=== PATIENT | male | born 1955 | race Caucasian/White ===

== ENCOUNTER 2018-05-25 01:20 | Inpatient (IN) ==
[2018-05-25 02:01] LABS: Basophils % 0.3 % (0.1-2.0); Eosinophils # 0.5 K/mm3 (0.0-0.4); Eosinophils % 4.2 % (0.1-12.0); Hematocrit 45.2 % (42.0-52.0); Hemoglobin 13.9 g/dL (14.1-18.0); Lymphocytes # 0.5 K/mm3 (0.7-4.5); Lymphocytes % 4.5 K/mm3 (10-50); Mean Corpuscular HGB Conc 30.7 g/dL (31.8-35.4); Mean Corpuscular Hemoglobin 28.1 pg (27.0-31.2); Mean Corpuscular Volume 91.4 fl (80-94); Mean Platelet Volume 7.1 fl (7.4-10.4); Monocytes # 0.5 K/mm3 (0.1-1.0); Monocytes % 4.2 % (1.7-9.3); Neutrophils # 9.8 K/mm3 (1.8-7.8); Neutrophils % 86.8 % (37.0-80.0); Platelet Count 160 K/mm3 (142-424); Red Blood Count 4.95 M/mm3 (4.60-6.20); White Blood Count 11.3 K/mm3 (4.8-10.8)
[2018-05-25 02:05] LABS: Microscopic, Urine URINE MICROSCOPIC (MICROSCOPIC)
[2018-05-25 02:07] LABS: Appearance,Urine CLEAR (Clear); Bilirubin,Urine Negative (Negative); Blood, Urine Negative (Negative); Color,Urine YELLOW (Yellow); Glucose,Urine (UA) Negative (Negative); Ketones,Urine Negative (Negative); Leukocyte Esterase,Urine Negative (Negative); PH,Urine 7.5 (5.0-8.5); Protein,Urine Negative (Negative); Specific Gravity, Urine 1.015 (1.005-1.030)
[2018-05-25 02:10] LABS: Anion Gap 6.4 mEq/L (5-15); Potassium 4.4 mmoL/L (3.5-5.1)
[2018-05-25 02:12] LABS: Albumin Level 2.8 gm/dL (3.4-5.0); Bilirubin,Direct 0.1 mg/dL (0.0-0.2); Bilirubin,Indirect 0.5 mg/dL (0.0-0.9); Bilirubin,Total 0.6 mg/dL (0.2-1.0); Total Protein,Serum 5.8 gm/dL (6.4-8.2)
[2018-05-25 02:18] LABS: Bacteria,Urine 1+ /lpf; WBC,Urine Occasional #/hpf (0-3)
--- NOTE | 2018-05-25 02:55 | Emergency Department Note ---
ED Disposition Clinical Impression: Febrile illness, acute, Renal insufficiency Disposition: Admitted as Observation Condition on Discharge: Good - Critical Care Critical Care Time: No Attestation: On 05/25/18, the high probability of a clinically significant, sudden or life threatening deterioration of the following system(s) required my full and direct attention, intervention and personal management. The time I documented below is in addition to time spent performing reported procedures but includes the following listed in this critical care notation. Medical Decision Making - Medical Records Medical records reviewed: Yes: I reviewed the patient's medical records. - Venkatesh Inquiry Pt receiving controlled substance: No Vital Signs: 05/25/18 01:24 Temperature 101.9 F H Temperature Source Oral Pulse Rate [Right Radial] 120 H Respiratory Rate 16 Blood Pressure [Right Arm] 157/96 Blood Pressure Mean [Right Arm] 116 Blood Pressure Source [Right Arm] Automatic Cuff Blood Pressure Position [Right Arm] Sitting 02 Sat by Pulse Oximetry 96 Oxygen Delivery Method Room Air - Lab Data Lab results reviewed: Yes: I reviewed the patient's lab results. Lab Results 05/25/18 01:45: WBC 11.3 H, RBC 4.95, Hgb 13.9 L, Hct 45.2, MCV 91.4, MCH 28.1, MCHC 30.7 L, RDW 15.0, Plt Count 160, MPV 7.1 L, Neut % (Auto) 86.8 H, Lymph % ( Auto) 4.5 L, Bartholomew % (Auto) 4.2, Eos % (Auto) 4.2, Baso % (Auto) 0.3, Neut # ( Auto) 9.8 H, Lymph # (Auto) 0.5 L, [place]th[place]omew # (Auto) 0.5, Eos # (Auto) 0.5 H, Baso # (Auto) 0.0, Total Counted 100, Neutrophils % (Manual) 93 H, Lymphocytes % ( Manual) 4 L, Eosinophils % (Manual) 3, Platelet Estimate Normal, Anisocytosis 1+ , Stomatocytes 1+ 05/25/18 01:45: Sodium 136, Potassium 4.4, Chloride 104, Carbon Dioxide 30, Anion Gap 6.4, BUN 32 H, Creatinine 1.35 H, Estimated Creat Clear 79, Estimated GFR 53 L, Est GFR ( Amer) 65, Glucose 114 H, Calcium 8.0 L, Amylase 48 05/25/18 01:45: Lactic Acid 1.2 05/25/18 01:45: Total Bilirubin 0.6, Direct Bilirubin 0.1, Indirect Bilirubin 0.5, AST 38 H, ALT 277 H, Alkaline Phosphatase 68, Total Protein 5.8 L, Albumin 2.8 L, Lipase 165 05/25/18 01:45: ESR 10 05/25/18 01:45: C-Reactive Protein 0.8 05/25/18 01:55: Urine Color Yellow, Urine Appearance Clear, Urine pH 7.5, Ur Specific [place] 1.015, Urine Protein Negative, Urine Glucose (UA) Negative, Urine Ketones Negative, Urine Blood Negative, Urine Nitrate Negative, Urine Bilirubin Negative, Urine Urobilinogen 2.0, Ur Leukocyte Esterase Negative, Urine WBC Occasional, Urine Bacteria 1+ Result diagrams: 05/25/18 01:45 05/25/18 01:45 Orders (Tests/Meds): ED MEDICATIONS Generic Name Dose Route Start Last Admin Trade Name Freq PRN Reason Stop Dose Admin Azithromycin 500 mg/ Sodium 250 mls @ 250 mls/hr 05/25/18 03:15 Chloride IV 06/08/18 03:14 Q24H EDUARDO Protocol Ceftriaxone Sodium 1 gm/ 50 mls @ 100 mls/hr 05/25/18 03:08 05/25/18 03:15 Sodium Chloride IV 06/08/18 03:07 100 mls/hr Q24H EDUARDO Administration Protocol Vancomycin HCl 2,000 mg/ 250 mls @ 125 mls/hr 05/25/18 03:05 Sodium Chloride IV 06/08/18 03:04 DAILY EDUARDO Protocol Discontinued Medications Generic Name Dose Route Start Last Admin Trade Name Freq PRN Reason Stop Dose Admin Acetaminophen 1,000 mg 05/25/18 01:35 05/25/18 01:50 Tylenol 500mg Tablet PO 05/25/18 01:36 1,000 mg ONCE ONE Administration Sodium Chloride 1,000 mls @ 999 mls/hr 05/25/18 01:45 05/25/18 01:50 Sod Chlor 0.9% 1000ml Bag IV 05/25/18 02:45 999 mls/hr .Q1H1M EDUARDO Administration ORDERS Category Date Time Status CT head/brain wo con Stat Cat Scan 05/25/18 01:53 Taken Chest XR 2 view (NOT portable) [XR chest 2V] Stat Exams 05/25/18 01:53 Taken Blood Culture Stat Micro 05/25/18 01:45 Received - Radiology Data #1 Image(s): Chest Image Reviewed: Yes I reviewed the patient's radiology image Preliminary Findings: Normal/NAD - CT Data CT Scan: Head Time Received: 03:[address] Reviewed: Yes: I have viewed the radiologist's interpretation Preliminary Findings: Abnormal (prob post op changes ) - Physician Consults Physician Consulted: cristian Reason -: Admission Skin/Abscess/FB HPI - General Chief complaint: Allergic Reaction Stated complaint: Rash,Swollen,Fever Time Seen by Provider: 05/25/18 02:48 Mode of Arrival: Ambulatory Source of Information: Patient, Spouse, Medical Record Limitations: No Limitations Description of Symptoms (Recalled from ER Triage Doc. by RN): has torso to facial rash since Tuesday, now has fever and facial swelling, current decadron taper, stopped pepcid. has had 100mg of benadryl since 8pm with no relief, may have missed decadron today - History of Present Illness HPI narrative: pt with glioblastoma removed 2 weeks ago at and has been doing ok - he dev rash on trunk and face with itching over the last few days - he was seen at with rash today - he is on decadron 2 mg bid but no chemotherapy and he has no urinary sx and no cough - no oral lesions and petichiae - he dev fever and chills tonalex MARR complaint: rash Onset (ago): day(s) Tetanus up to date: unsure Location: generalized Severity: moderate Consistency: constant Associated symptoms: fever, chills Treatments prior to arrival: Benadryl - Related Data Home Medications Medication Instructions Recorded Confirmed Allopurinol [Allopurinol 100mg 100 mg PO DAILY 05/02/18 05/25/18 tablet] Aspirin [Aspirin 81mg EC Tab] 81 mg PO DAILY 05/02/18 05/25/18 Lovastatin 40 mg PO DAILY 05/02/18 05/25/18 Ubidecarenone [Co Q-10] 10 mg PO DAILY 05/02/18 05/25/18 Dexamethasone 1 tab PO BID 05/25/18 05/25/18 Famotidine [Acid Controller] 20 mg PO BID 07/12/18 07/12/18 Allergies Allergy/AdvReac Type Severity Reaction Status Date / Time Sulfa (Sulfonamide Allergy Unknown Verified 05/02/18 22:25 Antibiotics) [SULFA (SULFONAMIDE ANTIBIOTICS)] [facility] History I have reviewed the patient's past medical history: Yes Medical History: Reports:: Cancer (glioblastoma) Denies:: Diabetes Mellitus Type 1, Diabetes Mellitus Type 2, MRSA Amputation: No Fractures: Yes (left arm plate) - Social History Smoking Status: Former smoker Alcohol Intake: never - Psychiatric History Expresses thoughts of harming self/others: None Suicide Plan Description: No Plan ROS Obtained: Yes All systems reviewed & no additional complaints - Constitutional Constitutional: Reports chills, Reports fever(s) - Eyes Eyes: Denies change in vision - ENT Ears, Nose, Mouth, and Throat: Denies sore throat - Cardiovascular Cardiovascular: Denies chest pain - Respiratory Respiratory: No cough, No coughing up blood - Gastrointestinal Gastrointestingal: Denies: abdominal pain - Genitourinary Male Genitourinary: Denies hematuria, Denies urinary urgency - Musculoskeletal Musculoskeletal: Denies joint pain, Denies joint swelling - Integumentary/Breasts Skin/Breast: Reports as per HPI, Reports rash - Neurologic Neurologic: Denies headache(s), Denies seizure-like activity Physical Exam - General General appearance: in no apparent distress - Head Head exam: normocephalic - Eye Eye exam: Present: PERRL, EOMI, other (no oral lesions ). Absent: scleral icterus - ENT ENT exam: Present: normal oropharynx, mucous membranes dry - Neck Neck exam: Present: trachea midline. Absent: meningismus - Respiratory Respiratory exam: Present: normal lung sounds bilaterally. Absent: respiratory distress - Cardiovascular Cardiovascular exam: Present: regular rate, systolic murmur. Absent: rubs - Abdominal Exam Abdominal exam: Present: soft. Absent: tenderness - Extremities Exam Extremities exam: Absent: joint swelling - Back Exam Back exam: Absent: CVA tenderness (L) - Neurological Exam Neurological exam: Present: alert, oriented X3, CN II-XII intact - Psychiatric Psychiatric exam: Present: normal affect - Skin Skin exam: Present: rash (morbiform rash to trunk and face with no feet/hand or mm lesions )
[2018-05-25 02:56] LABS: Anisocytosis 1+; Eosinophils % 3 % (0-3); Lymphocytes % 4 % (10-50); Neutrophils % 93 % (42-76); Stomatocytes 1+; Total Cells Counted 100
[2018-05-25 06:26] LABS: Basophils % 0.1 % (0.1-2.0); Eosinophils # 0.5 K/mm3 (0.0-0.4); Eosinophils % 4.4 % (0.1-12.0); Hematocrit 45.1 % (42.0-52.0); Hemoglobin 13.8 g/dL (14.1-18.0); Lymphocytes # 0.5 K/mm3 (0.7-4.5); Lymphocytes % 4.5 K/mm3 (10-50); Mean Corpuscular HGB Conc 30.7 g/dL (31.8-35.4); Mean Corpuscular Hemoglobin 28.6 pg (27.0-31.2); Mean Corpuscular Volume 93.3 fl (80-94); Monocytes # 0.4 K/mm3 (0.1-1.0); Monocytes % 3.6 % (1.7-9.3); Neutrophils # 10.4 K/mm3 (1.8-7.8); Neutrophils % 87.4 % (37.0-80.0); Platelet Count 137 K/mm3 (142-424); Red Blood Count 4.83 M/mm3 (4.60-6.20); Red Cell Distribution Width 15.1 % (11.5-17.5); White Blood Count 11.9 K/mm3 (4.8-10.8)
[2018-05-25 06:57] LABS: Calcium 8.1 mg/dL (8.5-10.1)
[2018-05-25 07:20] LABS: Anion Gap 11.1 mEq/L (5-15); Potassium 5.1 mmoL/L (3.5-5.1)
--- NOTE | 2018-05-25 07:40 | Pharmacy Consult Notes ---
[facility] Pharmacy VTE Monitoring - Patient Demographics Admission date: 05/25/18 Report Date: 05/25/18 Time: 07:40 Allergies/Adverse Reactions: Patient Allergies Sulfa (Sulfonamide Antibiotics) [SULFA (SULFONAMIDE ANTIBIOTICS)] Allergy ( Unknown, Verified 05/02/18 22:25) Height: 1.78 m Weight: 100.924 kg Patient Problems: Current Active Problems Febrile illness, acute (Acute) Renal insufficiency (Acute) - VTE Risk Labs: VTE Related Lab Results Hgb 13.8 g/dL (14.1-18.0) L 05/25/18 06:02 Hct 45.1 % (42.0-52.0) 05/25/18 06:02 Plt Count 137 K/mm3 (142-424) L 05/25/18 06:02 BUN 28 mg/dL (7-18) H 05/25/18 06:02 Creatinine 1.36 mg/dL (0.70-1.30) H 05/25/18 06:02 Estimated Creat Clear 79 mL/min (0-300) 05/25/18 06:02 Was VTE Risk Assessment Performed: Yes VTE Score: 6 VTE Risk Level: Moderate Risk Clinical Trial Participant: No - Prophylaxis VTE Prophylaxis Ordered?: Yes Types of VTE Prophylaxis: TEDS Knee High
--- NOTE | 2018-05-25 08:29 | History & Physical Report ---
*Admission Date: 05/25/18 <Mireya Shore 05/25/18 08:36> *Chief complaint: Fever, rash <Mireya Shore 05/25/18 08:36> *History of present illness: Mr. Chew is a 62-year-old male who was just recently diagnosed with a glioblastoma. He had most of the tumor removed on May 09, 2018. After the surgery, he was started on a high dose of dexamethasone. This dose has been tapered. He began getting a rash a few days ago that was extremely pruritic. The rash started on his chest and back and has now spread to his face. His oncologist started him on Pepcid and this did not help, therefore he changed it to Mylanta and Benadryl. The rash continued to get worse. Last night the patient developed a fever of 102 and presented to the emergency room for further evaluation and treatment. He denies any pain or other associated symptoms. He is still running a fever and his rash seems to be worse. <Mireya Shore 05/25/18 08:36> [facility] History Medical History: Reports:: Cancer (Glioblastoma, basal cell carcinoma left upper back), Hyperlipidemia, Kidney Stones Denies:: Diabetes Mellitus Type 1, Diabetes Mellitus Type 2, Internal Pacemaker, MRSA <Mireya Shore 05/25/18 08:36> Other Surgeries: Yes: Cancer Surgery (Removal of glioblastoma tumor). No: Pacemaker <Mireya Shore 05/25/18 08:36> Amputation: No <Mireya Shore 05/25/18 08:36> Fractures: Yes (left arm plate) <Mireya Shore 05/25/18 08:36> Comment: right knee scope, nerve repair left arm d/t chainsaw injury, L5/S1 hemilaminectomy/discectomy, kidney stones <Mireya Shore 05/25/18 08:36> - *Social History Educational Level: Completed High School <Mireya Shore 05/25/18 08:36> Smoking Status: Former smoker <Mireya Shore 05/25/18 08:36> Tobacco Type: cigarettes <Mireya Shore 05/25/18 08:36> Smoking End Date: 1979 <Mireya Shore 05/25/18 08:36> Alcohol Intake: current <MoneMireya 05/25/18 08:36> Alcohol Intake Frequency:: 0-2 drinks per day <Trevon Shorea 05/25/18 08:36> Occupational Status: retired <Mireya Shore 05/25/18 08:36> Housing: house <EnarnolMireya 05/25/18 08:36> Household Members: spouse <Mireya Shore 05/25/18 08:36> - Psychiatric History Expresses thoughts of harming self/others: None <Mireya Shore 05/25/18 08: 36> Suicide Plan Description: No Plan <Mireya Shore 05/25/18 08:36> *Family Hx:: Cancer, Heart Attack <Mireya Shore 05/25/18 08:36> Review of Systems - Constitutional Reports body ache(s), Reports chills, Reports fever(s) <Mireya Shore 08:36> - Eyes Denies blurry vision, Denies double vision <Mireya Shore 05/25/18 08:36> - ENT Denies nasal congestion, Denies sore throat <Mireya Shore 05/25/18 08:36> - *Cardiovascular Denies chest pain, Denies shortness of breath, Denies irregular heart rhythm < Mireya Shore 05/25/18 08:36> - *Respiratory Denies chest congestion, Denies cough, Denies shortness of breath <Mireya Shore 05/25/18 08:36> - *Gastrointestinal Denies loose stools, Denies nausea, Denies vomiting <Mireya Shore 05/25/18 08:36> - *Genitourinary Denies difficulty urinating, Denies painful urination <Mireya Shore 08:36> - *Musculoskeletal Denies joint pain <Mireya Shore 05/25/18 08:36> - *Neurologic Denies headache(s), Denies seizure-like activity, Denies dizziness <Mireya Shore 05/25/18 08:36> Meds Home Medications Medication Instructions Recorded Confirmed Type Allopurinol [Allopurinol 100mg 100 mg PO DAILY 05/02/18 05/25/18 History tablet] Aspirin [Aspirin 81mg EC Tab] 81 mg PO DAILY 05/02/18 05/25/18 History Lovastatin 40 mg PO HS 05/02/18 05/25/18 History Ubidecarenone [Co Q-10] 10 mg PO DAILY 05/02/18 05/25/18 History Dexamethasone 1 tab PO BID 05/25/18 05/25/18 History Famotidine [Acid Controller] 20 mg PO BID 05/25/18 05/25/18 History <Jered Tavares - 05/25/18 09:00> Allergies Allergy/AdvReac Type Severity Reaction Status Date / Time Sulfa (Sulfonamide Allergy Unknown Verified 05/02/18 22:25 Antibiotics) [SULFA (SULFONAMIDE ANTIBIOTICS)] <Jered Tavares - 05/25/18 09:00> Exam Vital signs and Labs for Last 24 Hours: Temp Pulse Resp BP Pulse Ox 99.4 F 104 H 20 130/91 99 05/25/18 08:00 05/25/18 08:00 05/25/18 08:00 05/25/18 08:00 05/25/18 08:00 Laboratory Results - last 24 hr 05/25/18 01:45: WBC 11.3 H, RBC 4.95, Hgb 13.9 L, Hct 45.2, MCV 91.4, MCH 28.1, MCHC 30.7 L, RDW 15.0, Plt Count 160, MPV 7.1 L, Neut % (Auto) 86.8 H, Lymph % ( Auto) 4.5 L, [place] % (Auto) 4.2, Eos % (Auto) 4.2, Baso % (Auto) 0.3, Neut # ( Auto) 9.8 H, Lymph # (Auto) 0.5 L, [place] # (Auto) 0.5, Eos # (Auto) 0.5 H, Baso # (Auto) 0.0, Total Counted 100, Neutrophils % (Manual) 93 H, Lymphocytes % ( Manual) 4 L, Eosinophils % (Manual) 3, Platelet Estimate Normal, Anisocytosis 1+ , Stomatocytes 1+ 05/25/18 01:45: Sodium 136, Potassium 4.4, Chloride 104, Carbon Dioxide 30, Anion Gap 6.4, BUN 32 H, Creatinine 1.35 H, Estimated Creat Clear 79, Estimated GFR 53 L, Est GFR ( Amer) 65, Glucose 114 H, Calcium 8.0 L, Amylase 48 05/25/18 01:45: Lactic Acid 1.2 05/25/18 01:45: Total Bilirubin 0.6, Direct Bilirubin 0.1, Indirect Bilirubin 0.5, AST 38 H, ALT 277 H, Alkaline Phosphatase 68, Total Protein 5.8 L, Albumin 2.8 L, Lipase 165 05/25/18 01:45: ESR 10 05/25/18 01:45: C-Reactive Protein 0.8 05/25/18 01:55: Urine Color Yellow, Urine Appearance Clear, Urine pH 7.5, Ur Specific [place] 1.015, Urine Protein Negative, Urine Glucose (UA) Negative, Urine Ketones Negative, Urine Blood Negative, Urine Nitrate Negative, Urine Bilirubin Negative, Urine Urobilinogen 2.0, Ur Leukocyte Esterase Negative, Urine WBC Occasional, Urine Bacteria 1+ 05/25/18 06:02: WBC 11.9 H, RBC 4.83, Hgb 13.8 L, Hct 45.1, MCV 93.3, MCH 28.6, MCHC 30.7 L, RDW 15.1, Plt Count 137 L, MPV 7.0 L, Neut % (Auto) 87.4 H, Lymph % (Auto) 4.5 L, [place] % (Auto) 3.6, Eos % (Auto) 4.4, Baso % (Auto) 0.1, Neut # ( Auto) 10.4 H, Lymph # (Auto) 0.5 L, [place] # (Auto) 0.4, Eos # (Auto) 0.5 H, Baso # (Auto) 0.0 05/25/18 06:02: Sodium 140, Potassium 5.1, Chloride 107, Carbon Dioxide 27, Anion Gap 11.1, BUN 28 H, Creatinine 1.36 H, Estimated Creat Clear 79, Estimated GFR 53 L, Est GFR ( Amer) 64, Glucose 111 H, Calcium 8.1 L <Jered Tavares - 05/25/18 09:00> Temp Pulse Resp BP Pulse Ox 98.8 F 102 H 18 128/74 95 05/25/18 03:58 05/25/18 04:20 05/25/18 03:58 05/25/18 03:58 05/25/18 04:20 Laboratory Results - last 24 hr 05/25/18 01:45: WBC 11.3 H, RBC 4.95, Hgb 13.9 L, Hct 45.2, MCV 91.4, MCH 28.1, MCHC 30.7 L, RDW 15.0, Plt Count 160, MPV 7.1 L, Neut % (Auto) 86.8 H, Lymph % ( Auto) 4.5 L, [place] % (Auto) 4.2, Eos % (Auto) 4.2, Baso % (Auto) 0.3, Neut # ( Auto) 9.8 H, Lymph # (Auto) 0.5 L, [place] # (Auto) 0.5, Eos # (Auto) 0.5 H, Baso # (Auto) 0.0, Total Counted 100, Neutrophils % (Manual) 93 H, Lymphocytes % ( Manual) 4 L, Eosinophils % (Manual) 3, Platelet Estimate Normal, Anisocytosis 1+ , Stomatocytes 1+ 05/25/18 01:45: Sodium 136, Potassium 4.4, Chloride 104, Carbon Dioxide 30, Anion Gap 6.4, BUN 32 H, Creatinine 1.35 H, Estimated Creat Clear 79, Estimated GFR 53 L, Est GFR ( Amer) 65, Glucose 114 H, Calcium 8.0 L, Amylase 48 05/25/18 01:45: Lactic Acid 1.2 05/25/18 01:45: Total Bilirubin 0.6, Direct Bilirubin 0.1, Indirect Bilirubin 0.5, AST 38 H, ALT 277 H, Alkaline Phosphatase 68, Total Protein 5.8 L, Albumin 2.8 L, Lipase 165 05/25/18 01:45: ESR 10 05/25/18 01:45: C-Reactive Protein 0.8 05/25/18 01:55: Urine Color Yellow, Urine Appearance Clear, Urine pH 7.5, Ur Specific [place] 1.015, Urine Protein Negative, Urine Glucose (UA) Negative, Urine Ketones Negative, Urine Blood Negative, Urine Nitrate Negative, Urine Bilirubin Negative, Urine Urobilinogen 2.0, Ur Leukocyte Esterase Negative, Urine WBC Occasional, Urine Bacteria 1+ 05/25/18 06:02: WBC 11.9 H, RBC 4.83, Hgb 13.8 L, Hct 45.1, MCV 93.3, MCH 28.6, MCHC 30.7 L, RDW 15.1, Plt Count 137 L, MPV 7.0 L, Neut % (Auto) 87.4 H, Lymph % (Auto) 4.5 L, [place] % (Auto) 3.6, Eos % (Auto) 4.4, Baso % (Auto) 0.1, Neut # ( Auto) 10.4 H, Lymph # (Auto) 0.5 L, [place] # (Auto) 0.4, Eos # (Auto) 0.5 H, Baso # (Auto) 0.0 05/25/18 06:02: Sodium 140, Potassium 5.1, Chloride 107, Carbon Dioxide 27, Anion Gap 11.1, BUN 28 H, Creatinine 1.36 H, Estimated Creat Clear 79, Estimated GFR 53 L, Est GFR ( Amer) 64, Glucose 111 H, Calcium 8.1 L <Mireya Shore - 05/25/18 08:36> I & O for Last 24 hours: Intake & Output 05/22/18 05/23/18 05/24/18 05/25/18 11:59 11:59 11:59 11:59 Intake Total 351 / 351 Output Total 650 / 650 Balance -299 / -299 Weight 222 lb 8 oz <Jered Tavares - 05/25/18 09:00> Intake & Output 05/22/18 05/23/18 05/24/18 05/25/18 11:59 11:59 11:59 11:59 Intake Total 351 / 351 Output Total 650 / 650 Balance -299 / -299 Weight 222 lb 8 oz <Mireya Shore - 05/25/18 08:36> - Constitutional no acute distress <Mireya Shore 05/25/18 08:36> - *Routine HEENT Exam Head: Present: normocephalic, atraumatic <Mireya Shore 05/25/18 08:36> Eye: Present: EOMI, PERRL <Mireya Shore 05/25/18 08:36> ENT: Present: mucous membranes moist <Mireya Shore - 05/25/18 08:36> - *Routine Neck Exam Present: supple, full ROM <Mireya Shore 05/25/18 08:36> - *Routine Respiratory Exam Present: CTA bilaterally <Mireya Shore 05/25/18 08:36> - *Routine Cardiovascular Exam Present: RRR <Mireya Shore 05/25/18 08:36> - *Routine Abdominal Exam Present: soft, normoactive bowel sounds. Absent: tenderness [facility] 05/25/18 08:36> - *Routine Extremities Exam Absent: edema <[facility] 05/25/18 08:36> - *Routine Skin Exam Present: rash (raised erythematous pruritic rash on the chest, back, and face) <Mireya Shore 05/25/18 08:36> - *Routine Neurological Exam Present: alert, oriented X3 <Mireya Shore 05/25/18 08:36> H&P: Result - Labs Labs: Short CBC 05/25/18 05/25/18 Range/Units 01:45 06:02 WBC 11.3 H 11.9 H (4.8-10.8) K/mm3 Hgb 13.9 L 13.8 L (14.1-18.0) g/dL Hct 45.2 45.1 (42.0-52.0) % Plt Count 160 137 L (142-424) K/mm3 BMP 05/25/18 05/25/18 01:45 06:02 Sodium 136 140 Potassium 4.4 5.1 Chloride 104 107 Carbon Dioxide 30 27 BUN 32 H 28 H Creatinine 1.35 H 1.36 H Glucose 114 H 111 H Calcium 8.0 L 8.1 L Liver Function 05/25/18 Range/Units 01:45 Total Bilirubin 0.6 (0.2-1.0) mg/dL Direct Bilirubin 0.1 (0.0-0.2) mg/dL AST 38 H (15-37) U/L ALT 277 H (12-78) U/L Alkaline Phosphatase 68 (46-116) U/L Albumin 2.8 L (3.4-5.0) gm/dL Urine 05/25/18 Range/Units 01:55 Urine Color Yellow (Yellow) Urine Appearance Clear (Clear) Urine pH 7.5 (5.0-8.5) Ur Specific [place] 1.015 (1.005-1.030) Urine Protein Negative (Negative) Urine Glucose (UA) Negative (Negative) <Jered Tavares - 05/25/18 09:00> <Mireya Shore - 05/25/18 08:36> - Impressions CT scan pending CXR - Faint infiltrate in the right upper lobe <Mireya Shore - 05/25/18 08:36> Assessment and Plan (1) Pneumonia Current visit: Yes Status: Acute Category: Medical Code(s): J18.9 - Pneumonia, unspecified organism (2) Febrile illness, acute Current visit: Yes Status: Acute Category: Medical Code(s): R50.9 - Fever , unspecified (3) Renal insufficiency Current visit: Yes Status: Acute Category: Medical Code(s): N28.9 - Disorder of kidney and ureter, unspecified (4) Rash Current visit: Yes Status: Acute Category: Medical Code(s): R21 - Rash and other nonspecific skin eruption (5) Glioblastoma Current visit: Yes Status: Acute Category: Medical Code(s): C71.9 - Malignant neoplasm of brain, unspecified <Jered Tavares - 05/25/18 09:00> (1) Pneumonia Current visit: Yes Status: Acute Category: Medical Code(s): J18.9 - Pneumonia, unspecified organism (2) Febrile illness, acute Current visit: Yes Status: Acute Category: Medical Code(s): R50.9 - Fever , unspecified (3) Renal insufficiency Current visit: Yes Status: Acute Category: Medical Code(s): N28.9 - Disorder of kidney and ureter, unspecified (4) Rash Current visit: Yes Status: Acute Category: Medical Code(s): R21 - Rash and other nonspecific skin eruption (5) Glioblastoma Current visit: Yes Status: Acute Category: Medical Code(s): C71.9 - Malignant neoplasm of brain, unspecified <Mireya Shore - 05/25/18 08:26> - Assessment and plan all Dx Assessment and Plan for all problems:: Saw patient, agree with above note, continue treatment for pneumonia and rash, which seems to be a medication side effect. <Jered Tavares - 05/25/18 09:00> CXR shows a faint pneumonia. Patient has been started on vancomycin, rocephin, and zithromax. His CT is still pending. Will discuss further care with Dr. Tavares. <Mireya Shore - 05/25/18 08:36>
--- NOTE | 2018-05-25 09:10 | Pharmacy Consult Notes ---
- Pharmacy Consult Date: 05/25/18 Time: 09:07 Referring provider: DR. AG Reason for Consult:: VANCOMYCIN DOSING Allergies and ADEs:: Allergies Allergy/AdvReac Type Severity Reaction Status Date / Time Sulfa (Sulfonamide Allergy Unknown Verified 05/02/18 22:25 Antibiotics) [SULFA (SULFONAMIDE ANTIBIOTICS)] Home Medications:: Home Medications Medication Instructions Recorded Confirmed Type Allopurinol [Allopurinol 100mg 100 mg PO DAILY 05/02/18 05/25/18 History tablet] Aspirin [Aspirin 81mg EC Tab] 81 mg PO DAILY 05/02/18 05/25/18 History Lovastatin 40 mg PO HS 05/02/18 05/25/18 History Ubidecarenone [Co Q-10] 10 mg PO DAILY 05/02/18 05/25/18 History Dexamethasone 1 tab PO BID 05/25/18 05/25/18 History Famotidine [Acid Controller] 20 mg PO BID 05/25/18 05/25/18 History Height: 1.78 m Weight: 100.924 kg Laboratory Results:: Laboratory Results - last 24 hr 05/25/18 01:45: WBC 11.3 H, RBC 4.95, Hgb 13.9 L, Hct 45.2, MCV 91.4, MCH 28.1, MCHC 30.7 L, RDW 15.0, Plt Count 160, MPV 7.1 L, Neut % (Auto) 86.8 H, Lymph % ( Auto) 4.5 L, [place] % (Auto) 4.2, Eos % (Auto) 4.2, Baso % (Auto) 0.3, Neut # ( Auto) 9.8 H, Lymph # (Auto) 0.5 L, [place] # (Auto) 0.5, Eos # (Auto) 0.5 H, Baso # (Auto) 0.0, Total Counted 100, Neutrophils % (Manual) 93 H, Lymphocytes % ( Manual) 4 L, Eosinophils % (Manual) 3, Platelet Estimate Normal, Anisocytosis 1+ , Stomatocytes 1+ 05/25/18 01:45: Sodium 136, Potassium 4.4, Chloride 104, Carbon Dioxide 30, Anion Gap 6.4, BUN 32 H, Creatinine 1.35 H, Estimated Creat Clear 79, Estimated GFR 53 L, Est GFR ( Amer) 65, Glucose 114 H, Calcium 8.0 L, Amylase 48 05/25/18 01:45: Lactic Acid 1.2 05/25/18 01:45: Total Bilirubin 0.6, Direct Bilirubin 0.1, Indirect Bilirubin 0.5, AST 38 H, ALT 277 H, Alkaline Phosphatase 68, Total Protein 5.8 L, Albumin 2.8 L, Lipase 165 05/25/18 01:45: ESR 10 05/25/18 01:45: C-Reactive Protein 0.8 05/25/18 01:55: Urine Color Yellow, Urine Appearance Clear, Urine pH 7.5, Ur Specific [place] 1.015, Urine Protein Negative, Urine Glucose (UA) Negative, Urine Ketones Negative, Urine Blood Negative, Urine Nitrate Negative, Urine Bilirubin Negative, Urine Urobilinogen 2.0, Ur Leukocyte Esterase Negative, Urine WBC Occasional, Urine Bacteria 1+ 05/25/18 06:02: WBC 11.9 H, RBC 4.83, Hgb 13.8 L, Hct 45.1, MCV 93.3, MCH 28.6, MCHC 30.7 L, RDW 15.1, Plt Count 137 L, MPV 7.0 L, Neut % (Auto) 87.4 H, Lymph % (Auto) 4.5 L, [place] % (Auto) 3.6, Eos % (Auto) 4.4, Baso % (Auto) 0.1, Neut # ( Auto) 10.4 H, Lymph # (Auto) 0.5 L, [place] # (Auto) 0.4, Eos # (Auto) 0.5 H, Baso # (Auto) 0.0 05/25/18 06:02: Sodium 140, Potassium 5.1, Chloride 107, Carbon Dioxide 27, Anion Gap 11.1, BUN 28 H, Creatinine 1.36 H, Estimated Creat Clear 79, Estimated GFR 53 L, Est GFR ( Amer) 64, Glucose 111 H, Calcium 8.1 L Medical History: Reports:: Cancer (Glioblastoma, basal cell carcinoma left upper back), Hyperlipidemia, Kidney Stones Denies:: Diabetes Mellitus Type 1, Diabetes Mellitus Type 2, Internal Pacemaker, MRSA Assessment and Plan (1) Pneumonia Current visit: Yes Status: Acute Category: Medical Code(s): J18.9 - Pneumonia, unspecified organism (2) Febrile illness, acute Current visit: Yes Status: Acute Category: Medical Code(s): R50.9 - Fever , unspecified (3) Renal insufficiency Current visit: Yes Status: Acute Category: Medical Code(s): N28.9 - Disorder of kidney and ureter, unspecified (4) Rash Current visit: Yes Status: Acute Category: Medical Code(s): R21 - Rash and other nonspecific skin eruption (5) Glioblastoma Current visit: Yes Status: Acute Category: Medical Code(s): C71.9 - Malignant neoplasm of brain, unspecified - Assessment and plan all Dx Assessment and Plan for all problems:: BASED ON PATIENT FACTORS, RECOMMEND VANCOMYCIN 2,000MG IV DAILY. PHARMACY WILL CONTINUE TO MONITOR AND WILL ADJUST DOSE APPROPRIATE. -PENNY HAMILTON, DANED
--- NOTE | 2018-05-25 19:10 | Progress Note ---
Internal Medicine - PN: Subj *Date: 05/25/18 *Time: 19:08 Interval history: Patient has had a better day, no chills, rash has subsided a little on his face. He has slept most of the day. Exam Vital signs and Labs for Last 24 Hours: Temp Pulse Resp BP Pulse Ox 98.3 F 93 H 20 142/88 94 L 05/25/18 16:00 05/25/18 16:00 05/25/18 16:00 05/25/18 16:00 05/25/18 16:00 Laboratory Results - last 24 hr 05/25/18 01:45: WBC 11.3 H, RBC 4.95, Hgb 13.9 L, Hct 45.2, MCV 91.4, MCH 28.1, MCHC 30.7 L, RDW 15.0, Plt Count 160, MPV 7.1 L, Neut % (Auto) 86.8 H, Lymph % ( Auto) 4.5 L, [place] % (Auto) 4.2, Eos % (Auto) 4.2, Baso % (Auto) 0.3, Neut # ( Auto) 9.8 H, Lymph # (Auto) 0.5 L, [place] # (Auto) 0.5, Eos # (Auto) 0.5 H, Baso # (Auto) 0.0, Total Counted 100, Neutrophils % (Manual) 93 H, Lymphocytes % ( Manual) 4 L, Eosinophils % (Manual) 3, Platelet Estimate Normal, Anisocytosis 1+ , Stomatocytes 1+ 05/25/18 01:45: Sodium 136, Potassium 4.4, Chloride 104, Carbon Dioxide 30, Anion Gap 6.4, BUN 32 H, Creatinine 1.35 H, Estimated Creat Clear 79, Estimated GFR 53 L, Est GFR ( Amer) 65, Glucose 114 H, Calcium 8.0 L, Amylase 48 05/25/18 01:45: Lactic Acid 1.2 05/25/18 01:45: Total Bilirubin 0.6, Direct Bilirubin 0.1, Indirect Bilirubin 0.5, AST 38 H, ALT 277 H, Alkaline Phosphatase 68, Total Protein 5.8 L, Albumin 2.8 L, Lipase 165 05/25/18 01:45: ESR 10 05/25/18 01:45: C-Reactive Protein 0.8 05/25/18 01:55: Urine Color Yellow, Urine Appearance Clear, Urine pH 7.5, Ur Specific [place] 1.015, Urine Protein Negative, Urine Glucose (UA) Negative, Urine Ketones Negative, Urine Blood Negative, Urine Nitrate Negative, Urine Bilirubin Negative, Urine Urobilinogen 2.0, Ur Leukocyte Esterase Negative, Urine WBC Occasional, Urine Bacteria 1+ 05/25/18 06:02: WBC 11.9 H, RBC 4.83, Hgb 13.8 L, Hct 45.1, MCV 93.3, MCH 28.6, MCHC 30.7 L, RDW 15.1, Plt Count 137 L, MPV 7.0 L, Neut % (Auto) 87.4 H, Lymph % (Auto) 4.5 L, [place] % (Auto) 3.6, Eos % (Auto) 4.4, Baso % (Auto) 0.1, Neut # ( Auto) 10.4 H, Lymph # (Auto) 0.5 L, [place] # (Auto) 0.4, Eos # (Auto) 0.5 H, Baso # (Auto) 0.0 05/25/18 06:02: Sodium 140, Potassium 5.1, Chloride 107, Carbon Dioxide 27, Anion Gap 11.1, BUN 28 H, Creatinine 1.36 H, Estimated Creat Clear 79, Estimated GFR 53 L, Est GFR ( Amer) 64, Glucose 111 H, Calcium 8.1 L Vital Signs - 24 hr 05/25/18 01:24 05/25/18 03:50 05/25/18 03:58 Temperature 101.9 F H 100.4 F H 98.8 F Pulse Rate 110 H Pulse Rate [Right Radial] 120 H 102 H Respiratory Rate 16 14 18 Blood Pressure 116/79 Blood Pressure [Right Arm] 157/96 128/74 02 Sat by Pulse Oximetry 96 95 05/25/18 04:20 05/25/18 08:00 05/25/18 09:00 Temperature 99.4 F Pulse Rate Pulse Rate [Right Radial] 102 H 104 H Respiratory Rate 20 Blood Pressure Blood Pressure [Right Arm] 130/91 02 Sat by Pulse Oximetry 95 99 99 05/25/18 16:00 Temperature 98.3 F Pulse Rate Pulse Rate [Right Radial] 93 H Respiratory Rate 20 Blood Pressure Blood Pressure [Right Arm] 142/88 02 Sat by Pulse Oximetry 94 L I & O for Last 24 hours: Intake & Output 05/23/18 05/24/18 05/25/18 05/26/18 11:59 11:59 11:59 11:59 Intake Total 351 / 351 1106 / 1106 Output Total 650 / 650 1350 / 1350 Balance -299 / -299 -244 / -244 Weight 222 lb 8 oz Assessment and Plan (1) Pneumonia Current visit: Yes Status: Acute Category: Medical Code(s): J18.9 - Pneumonia, unspecified organism (2) Febrile illness, acute Current visit: Yes Status: Acute Category: Medical Code(s): R50.9 - Fever , unspecified (3) Renal insufficiency Current visit: Yes Status: Acute Category: Medical Code(s): N28.9 - Disorder of kidney and ureter, unspecified (4) Rash Current visit: Yes Status: Acute Category: Medical Code(s): R21 - Rash and other nonspecific skin eruption (5) Glioblastoma Current visit: Yes Status: Acute Category: Medical Code(s): C71.9 - Malignant neoplasm of brain, unspecified - Assessment and plan all Dx Assessment and Plan for all problems:: Continue current treatment, await cultures, recheck labs in the morning.
[2018-05-26 06:42] LABS: Eosinophils % 0.2 % (0.1-12.0); Hematocrit 42.6 % (42.0-52.0); Hemoglobin 13.1 g/dL (14.1-18.0); Lymphocytes # 0.5 K/mm3 (0.7-4.5); Lymphocytes % 2.6 K/mm3 (10-50); Mean Corpuscular HGB Conc 30.8 g/dL (31.8-35.4); Mean Corpuscular Hemoglobin 28.3 pg (27.0-31.2); Monocytes # 0.3 K/mm3 (0.1-1.0); Monocytes % 1.9 % (1.7-9.3); Neutrophils # 16.3 K/mm3 (1.8-7.8); Neutrophils % 95.2 % (37.0-80.0); Platelet Count 120 K/mm3 (142-424); Red Blood Count 4.63 M/mm3 (4.60-6.20); Red Cell Distribution Width 15.1 % (11.5-17.5); White Blood Count 17.2 K/mm3 (4.8-10.8)
[2018-05-26 06:48] LABS: Anion Gap 8.6 mEq/L (5-15); Calcium 8.1 mg/dL (8.5-10.1); Potassium 4.6 mmoL/L (3.5-5.1)
--- NOTE | 2018-05-26 08:28 | Progress Note ---
<Mireya Shore - Last Filed: 05/26/18 08:25> Internal Medicine - PN: Subj *Date: 05/26/18 *Time: 08:25 Interval history: Patient states he is feeling slightly better today. His rash is still present but seems to be slightly better and does not itch as much as it did yesterday. He denies any other pain. He slept off and on throughout the night. He was able to eat breakfast. Exam Vital signs and Labs for Last 24 Hours: Temp Pulse Resp BP Pulse Ox 98.2 F 84 18 133/82 96 05/26/18 04:00 05/26/18 04:00 05/26/18 04:00 05/26/18 04:00 05/26/18 04:00 Laboratory Results - last 24 hr 05/26/18 06:15: WBC 17.2 H D, RBC 4.63, Hgb 13.1 L, Hct 42.6, MCV 92.0, MCH 28.3 , MCHC 30.8 L, RDW 15.1, Plt Count 120 L, MPV 7.0 L, Neut % (Auto) 95.2 H, Lymph % (Auto) 2.6 L, [place] % (Auto) 1.9, Eos % (Auto) 0.2, Baso % (Auto) 0.0 L, Neut # (Auto) 16.3 H, Lymph # (Auto) 0.5 L, [place] # (Auto) 0.3, Eos # (Auto) 0.0 , Baso # (Auto) 0.0 05/26/18 06:15: Sodium 142, Potassium 4.6, Chloride 111 H, Carbon Dioxide 27, Anion Gap 8.6, BUN 22 H, Creatinine 0.93 D, Estimated Creat Clear 108, Estimated GFR 82, Est GFR ( Amer) 99 D, Glucose 198 H, Calcium 8.1 L I & O for Last 24 hours: Intake & Output 05/23/18 05/24/18 05/25/18 05/26/18 11:59 11:59 11:59 11:59 Intake Total 351 / 351 2563 / 2563 Output Total 650 / 650 1350 / 1350 Balance -299 / -299 1213 / 1213 Weight 222 lb 8 oz Radiology Reports for the Last 24 Hours: Head CT 1. Interval left temporoparietal postoperative change with prior craniotomy 2. Extra-axial hyperdensity underlying the surgical site with dural thickening versus small amount of hemorrhage. 3. Intra-axial left temporal parietal hypodensity which could be due to encephalomalacia or edema from a space-occupying lesion. Encephalitis is not excluded based on this exam. MRI the brain without and with contrast may be of further value. Please correlate with patient's surgical history and prior imaging studies. The only imaging study of the head available at this institution is unenhanced CT scan. - Constitutional no acute distress - *Routine Respiratory Exam Present: CTA bilaterally - *Routine Cardiovascular Exam Present: RRR - *Routine Abdominal Exam Present: soft, normoactive bowel sounds. Absent: tenderness - *Routine Extremities Exam Absent: edema - *Routine Skin Exam Present: rash (erythematous maculopapular rash on the chest, back, and face, there are a few pustules in the rash as well) Assessment and Plan (1) Pneumonia Current visit: Yes Status: Acute Category: Medical Code(s): J18.9 - Pneumonia, unspecified organism (2) Febrile illness, acute Current visit: Yes Status: Acute Category: Medical Code(s): R50.9 - Fever , unspecified (3) Renal insufficiency Current visit: Yes Status: Acute Category: Medical Code(s): N28.9 - Disorder of kidney and ureter, unspecified (4) Rash Current visit: Yes Status: Acute Category: Medical Code(s): R21 - Rash and other nonspecific skin eruption (5) Glioblastoma Current visit: Yes Status: Acute Category: Medical Code(s): C71.9 - Malignant neoplasm of brain, unspecified - Assessment and plan all Dx Assessment and Plan for all problems:: Will continue abx and steroids. Patient may need an MRI based on CT report. <Jered Tavares - Last Filed: 05/26/18 09:06> Internal Medicine - PN: Subj *Date: 05/26/18 *Time: 09:05 Exam Vital signs and Labs for Last 24 Hours: Temp Pulse Resp BP Pulse Ox 97.8 F 90 16 128/72 96 05/26/18 08:00 05/26/18 08:00 05/26/18 08:00 05/26/18 08:00 05/26/18 08:00 Laboratory Results - last 24 hr 05/26/18 06:15: WBC 17.2 H D, RBC 4.63, Hgb 13.1 L, Hct 42.6, MCV 92.0, MCH 28.3 , MCHC 30.8 L, RDW 15.1, Plt Count 120 L, MPV 7.0 L, Neut % (Auto) 95.2 H, Lymph % (Auto) 2.6 L, [place] % (Auto) 1.9, Eos % (Auto) 0.2, Baso % (Auto) 0.0 L, Neut # (Auto) 16.3 H, Lymph # (Auto) 0.5 L, [place] # (Auto) 0.3, Eos # (Auto) 0.0 , Baso # (Auto) 0.0 05/26/18 06:15: Sodium 142, Potassium 4.6, Chloride 111 H, Carbon Dioxide 27, Anion Gap 8.6, BUN 22 H, Creatinine 0.93 D, Estimated Creat Clear 108, Estimated GFR 82, Est GFR ( Amer) 99 D, Glucose 198 H, Calcium 8.1 L I & O for Last 24 hours: Intake & Output 05/23/18 05/24/18 05/25/18 05/26/18 11:59 11:59 11:59 11:59 Intake Total 351 / 351 2563 / 2563 Output Total 650 / 650 1350 / 1350 Balance -299 / -299 1213 / 1213 Weight 222 lb 8 oz Assessment and Plan (1) Pneumonia Current visit: Yes Status: Acute Category: Medical Code(s): J18.9 - Pneumonia, unspecified organism (2) Febrile illness, acute Current visit: Yes Status: Acute Category: Medical Code(s): R50.9 - Fever , unspecified (3) Renal insufficiency Current visit: Yes Status: Acute Category: Medical Code(s): N28.9 - Disorder of kidney and ureter, unspecified (4) Rash Current visit: Yes Status: Acute Category: Medical Code(s): R21 - Rash and other nonspecific skin eruption (5) Glioblastoma Current visit: Yes Status: Acute Category: Medical Code(s): C71.9 - Malignant neoplasm of brain, unspecified - Assessment and plan all Dx Assessment and Plan for all problems:: Saw patient, agree with above note, discussed CT with Radiologist. No need for MRI or repeat CT now. Plan to saline lock IVF today, Patient is slowly improving.
[2018-05-26 09:35] LABS: Eosinophils % 1 % (0-3); Lymphocytes % 2 % (10-50); Monocytes % 1 % (2-9); Neutrophils % 91 % (42-76); Total Cells Counted 100
[2018-05-27 06:47] LABS: Eosinophils % 0.2 % (0.1-12.0); Hematocrit 41.2 % (42.0-52.0); Hemoglobin 12.8 g/dL (14.1-18.0); Lymphocytes # 0.5 K/mm3 (0.7-4.5); Lymphocytes % 2.5 K/mm3 (10-50); Mean Corpuscular HGB Conc 31.1 g/dL (31.8-35.4); Mean Corpuscular Hemoglobin 28.7 pg (27.0-31.2); Mean Corpuscular Volume 92.2 fl (80-94); Mean Platelet Volume 7.4 fl (7.4-10.4); Monocytes # 0.4 K/mm3 (0.1-1.0); Monocytes % 1.9 % (1.7-9.3); Neutrophils # 17.4 K/mm3 (1.8-7.8); Neutrophils % 95.4 % (37.0-80.0); Platelet Count 130 K/mm3 (142-424); Red Blood Count 4.47 M/mm3 (4.60-6.20); Red Cell Distribution Width 15.1 % (11.5-17.5); White Blood Count 18.2 K/mm3 (4.8-10.8)
[2018-05-27 06:54] LABS: Anion Gap 8.9 mEq/L (5-15); Calcium 8.1 mg/dL (8.5-10.1); Potassium 3.9 mmoL/L (3.5-5.1)
[2018-05-27 07:49] VITALS: BP 126/78
[2018-05-27 08:25] LABS: Eosinophils % 2 % (0-3); Lymphocytes % 1 % (10-50); Monocytes % 1 % (2-9); Neutrophils % 96 % (42-76); Total Cells Counted 100
[2018-05-27 08:27] LABS: RBC Morphology Normal
--- NOTE | 2018-05-27 08:57 | Progress Note ---
Internal Medicine - PN: Subj *Date: 05/27/18 *Time: 09:16 Interval history: He rested well and is feeling better this morning. He denies cough. No chest pain. His rash seems to be slowly resolving. He has only minimal itching. Exam Vital signs and Labs for Last 24 Hours: Temp Pulse Resp BP Pulse Ox 98.1 F 90 18 126/78 98 05/27/18 07:47 05/27/18 07:47 05/27/18 07:47 05/27/18 07:47 05/27/18 07:47 Laboratory Results - last 24 hr 05/26/18 06:15: Total Counted 100, Neutrophils % (Manual) 91 H, Band Neutrophils % 3.0, Lymphocytes % (Manual) 2 L, Atypical Lymphs % 2.0, Monocytes % (Manual) 1 L, Eosinophils % (Manual) 1, Platelet Estimate Moderate decrease 05/27/18 06:37: WBC 18.2 H, RBC 4.47 L, Hgb 12.8 L, Hct 41.2 L, MCV 92.2, MCH 28.7, MCHC 31.1 L, RDW 15.1, Plt Count 130 L, MPV 7.4, Neut % (Auto) 95.4 H, Lymph % (Auto) 2.5 L, [place] % (Auto) 1.9, Eos % (Auto) 0.2, Baso % (Auto) 0.0 L, Neut # (Auto) 17.4 H, Lymph # (Auto) 0.5 L, [place] # (Auto) 0.4, Eos # (Auto) 0.0 , Baso # (Auto) 0.0, Total Counted 100, Neutrophils % (Manual) 96 H, Lymphocytes % (Manual) 1 L, Monocytes % (Manual) 1 L, Eosinophils % (Manual) 2, Platelet Estimate Slight decrease, RBC Morphology Normal 05/27/18 06:37: Sodium 145, Potassium 3.9, Chloride 112 H, Carbon Dioxide 28, Anion Gap 8.9, BUN 30 H D, Creatinine 0.96, Estimated Creat Clear 108, Estimated GFR 79, Est GFR ( Amer) 96, Glucose 184 H, Calcium 8.1 L I & O for Last 24 hours: Intake & Output 05/24/18 05/25/18 05/26/18 05/27/18 11:59 11:59 11:59 11:59 Intake Total 351 / 351 2563 / 2563 1293 / 1293 Output Total 650 / 650 1350 / 1350 Balance -299 / -299 1213 / 1213 1293 / 1293 Weight 222 lb 8 oz Microbiology Reports for the Last 24 Hours: Microbiology 05/25/18 01:45 Blood Blood Culture - Preliminary NO GROWTH AFTER 48 HOURS 05/25/18 01:45 Blood Blood Culture - Preliminary NO GROWTH AFTER 48 HOURS 05/26/18 10:30 Sputum - Expectorated Sputum Gram Stain - Final 05/26/18 10:30 Sputum - Expectorated Sputum Sputum Culture - Final Narrative: He is alert and oriented and in no respiratory distress. Lungs are clear to auscultation. Heart is regular with no murmurs. Skin shows a red macular slightly scaly rash on his trunk. No excoriations. Assessment and Plan (1) Pneumonia Current visit: Yes Status: Acute Category: Medical Code(s): J18.9 - Pneumonia, unspecified organism (2) Febrile illness, acute Current visit: Yes Status: Acute Category: Medical Code(s): R50.9 - Fever , unspecified (3) Renal insufficiency Current visit: Yes Status: Acute Category: Medical Code(s): N28.9 - Disorder of kidney and ureter, unspecified (4) Rash Current visit: Yes Status: Acute Category: Medical Code(s): R21 - Rash and other nonspecific skin eruption (5) Glioblastoma Current visit: Yes Status: Acute Category: Medical Code(s): C71.9 - Malignant neoplasm of brain, unspecified - Assessment and plan all Dx Assessment and Plan for all problems:: His blood cultures are negative at 48 hours. He clinically is much improved. His white count remains elevated likely on the basis of his steroids. He is stable for discharge. He will be continued on oral Ceftin and Zithromax for his pneumonia. He has a Medrol Dosepak at home that he will start taking. He will follow-up with Dr. Tavares for recheck in 5 days.
--- NOTE | 2018-05-29 11:24 | Discharge Summary ---
General - General Admission date:: 05/25/18 <Jose GElbert Benz - 06/15/18 13:56> 05/25/18 <Mireya Shore - 05/29/18 11:24> Discharge date: 05/27/18 <MoneMireya - 05/29/18 11:24> HPI HPI: Mr. Chew is a 62-year-old male who was just recently diagnosed with a glioblastoma. He had most of the tumor removed on May 09, 2018. After the surgery, he was started on a high dose of dexamethasone. This dose has been tapered. He began getting a rash a few days ago that was extremely pruritic. The rash started on his chest and back and has now spread to his face. His oncologist started him on Pepcid and this did not help, therefore he changed it to Mylanta and Benadryl. The rash continued to get worse. Last night the patient developed a fever of 102 and presented to the emergency room for further evaluation and treatment. He denies any pain or other associated symptoms. He is still running a fever and his rash seems to be worse. <MoneMireya - 05/29/18 11:24> Hospital Course Hospital Course: The patient's CXR showed a faint RUL infiltrate. He was started on vancomycin, rocephin, and zithromax. His dexamethasone was stopped and he was started on solumedrol for his rash. His head CT showed a hyperdensity underlying the recent surgical site with dural thickening vs. a small hemorrhage. Dr. Tavares discussed the CT with the radiologist and there was no need for an MRI or repeat CT. The patient's symptoms did improve. His blood cultures were negative at 48 hours. He was stable for discharge. He was continued on oral Ceftin and Zithromax for his pneumonia. He has a Medrol Dosepak at home that he will start taking. He will follow-up with Dr. Tavares for recheck in 5 days. <Mireya Shore - 05/29/18 11:24> Objective Vital signs: Temp Pulse Resp BP Pulse Ox 98.1 F 90 18 126/78 98 05/27/18 07:47 05/27/18 07:47 05/27/18 07:47 05/27/18 07:47 05/27/18 07:47 <Elbert Araiza - 06/15/18 13:56> Temp Pulse Resp BP Pulse Ox 98.1 F 90 18 126/78 98 05/27/18 07:47 05/27/18 07:47 05/27/18 07:47 05/27/18 07:47 05/27/18 07:47 <Mireya Shore - 05/29/18 11:24> Narrative: - Constitutional no acute distress - *Routine HEENT Exam Head: Present: normocephalic, atraumatic Eye: Present: EOMI, PERRL ENT: Present: mucous membranes moist - *Routine Neck Exam Present: supple, full ROM - *Routine Respiratory Exam Present: CTA bilaterally - *Routine Cardiovascular Exam Present: RRR - *Routine Abdominal Exam Present: soft, normoactive bowel sounds. Absent: tenderness - *Routine Extremities Exam Absent: edema - *Routine Skin Exam Present: rash (raised erythematous pruritic rash on the chest, back, and face) - *Routine Neurological Exam Present: alert, oriented X3 <Mireya Shore - 05/29/18 11:24> Results Labs on day of discharge: Preliminary micro results at discharge 05/25/18 01:45 Blood Culture - Preliminary Blood NO GROWTH AFTER 48 HOURS 05/25/18 01:45 Blood Culture - Preliminary Blood NO GROWTH AFTER 48 HOURS <Mireya Shore - 05/29/18 11:24> DS: Diagnosis - Discharge Diagnosis (1) Pneumonia Status: Acute (2) Febrile illness, acute Status: Acute (3) Renal insufficiency Status: Acute (4) Rash Status: Acute (5) Glioblastoma Status: Acute <Mireya Shore - 05/29/18 11:19> (1) Pneumonia Status: Acute (2) Febrile illness, acute Status: Acute (3) Renal insufficiency Status: Acute (4) Rash Status: Acute (5) Glioblastoma Status: Acute <Elbert Araiza - 06/15/18 13:56> Discharge Plan - Patient Discharge Instructions ACTIVITY: Limited activity <Mireya Shore 05/29/18 11:24> DIET: continue same diet <Mireya Shore 05/29/18 11:24> Patient Instructions: Pneumonia-Adult <Elbert Araiza - 06/15/18 13: 56> Forms: <Elbert Araiza Demar - 06/15/18 13:56> - Follow up Plan Follow up with: Jered Tavares MD [Primary Care Provider] - 06/01/18 < Jose G,Elbert Demar - 06/15/18 13:56> Disposition: Home, Self-Care <Elbert Araiza Demar - 06/15/18 13:56> Home Medications: Home Medications Medication Instructions Recorded Confirmed Type Allopurinol [Allopurinol 100mg 100 mg PO DAILY 05/02/18 05/25/18 History tablet] Aspirin [Aspirin 81mg EC Tab] 81 mg PO DAILY 05/02/18 05/25/18 History Lovastatin 40 mg PO HS 05/02/18 05/25/18 History Ubidecarenone [Co Q-10] 10 mg PO DAILY 05/02/18 05/25/18 History Famotidine [Acid Controller] 20 mg PO BID 05/25/18 05/25/18 History <Elbert Araiza - 06/15/18 13:56> Prescriptions/Medication Reconciliation: New Azithromycin [Zithromax 250mg tab] 250 mg PO DAILY #3 tab cefUROXime axetil [Ceftin 500mg Tab (GEQ)] 500 mg PO BID #14 tab Continue Ubidecarenone [Co Q-10] 10 mg PO DAILY Lovastatin 40 mg PO HS Allopurinol [Allopurinol 100mg tablet] 100 mg PO DAILY Aspirin [Aspirin 81mg EC Tab] 81 mg PO DAILY Famotidine [Acid Controller] 20 mg PO BID Discontinued Dexamethasone 1 tab PO BID <Jose GElbert Demar - 06/15/18 13:56> - Additional Information Additional Information: Concur with assessment and plan for discharge. <Elbert Araiza - 06/15/18 13:56>
== END 2018-05-27 09:35 | disposition home or self-care (01) ==
LOC: 2ND 01:20 → ER 01:20 → OBSVTOIN 03:55 → 2ND 03:57
PROVIDERS: ADMIT Family Medicine; ATTEND Family Medicine
CPT/HCPCS: 70450; 71020; 71046; 80048; 80076; 81001; 82150; 83605; 83690; 85007; 85025; 85651; 86140; 87040; 87205; 96365; 96367; 99284; J0456; J3370

== ENCOUNTER → 2018-06-08 14:47 | Outpatient (CLI) | payer OTHER, SELFPAY | PROVIDERS: PCP Family Medicine; Visit Provider Family Medicine | DX: G47.30 Sleep apnea, unspecified (principal); R06.83 Snoring; E66.9 Obesity, unspecified | CPT/HCPCS: 95806 ==

== ENCOUNTER → 2018-12-18 08:21 | Outpatient (CLI) | payer BC, SELFPAY ==
[2018-12-18 08:32] LABS: Basophils % 0.1 % (0.1-2.0); Eosinophils # 0.2 K/mm3 (0.0-0.4); Eosinophils % 1.3 % (0.1-12.0); Hematocrit 41.9 % (42.0-52.0); Hemoglobin 13.6 g/dL (14.1-18.0); Lymphocytes # 1.4 K/mm3 (0.7-4.5); Lymphocytes % 11.8 % (10-50); Mean Corpuscular HGB Conc 32.6 g/dL (31.8-35.4); Mean Corpuscular Hemoglobin 30.8 pg (27.0-31.2); Mean Corpuscular Volume 94.7 fl (80-94); Mean Platelet Volume 6.4 fl (7.4-10.4); Monocytes # 0.5 K/mm3 (0.1-1.0); Monocytes % 4.5 % (1.7-9.3); Neutrophils # 9.9 K/mm3 (1.8-7.8); Neutrophils % 82.4 % (37.0-80.0); Platelet Count 161 K/mm3 (142-424); Red Blood Count 4.43 M/mm3 (4.60-6.20)
--- NOTE | 2018-12-18 08:34 | MR_ITS ---
MR head/brain wo/w con HISTORY: ITS.REASON: glioblastoma, prior craniotomy ORDERING PHYSICIAN: Fransisca Dsouza MD PATIENT AGE: 63 years Comparison: 05/25/2018. 05/02/2018 TECHNIQUE: Standard multiplanar multiecho sequences are performed without and with gadolinium enhancement. 20 mL of ProHance given IV. FINDINGS: Most recent MRI of 11/20/2018 is unavailable for review. That report is available. There are postsurgical changes from a prior left temporoparietal craniotomy. There is a cavity present in the left temporal parietal region which measures 3 cm. This is hypointense on T1 and hyperintense on T2. There is some mild irregular enhancement around the periphery of this cavity with a moderate amount of T2/FLAIR signal hyperintensity of the subadjacent parietal and temporal lobe extending into the white matter in the left basal ganglia at the external and internal capsular region and thalamus posteriorly. There is mild midline shift to the right by approximately 5 mm. The irregular zone of enhancement around the resection cavity is 17 mm medially and 4 mm laterally. Enhancement has a somewhat nodular appearance. No restricted diffusion. No hydrocephalus. Developmental venous anomaly noted in the left cerebellar hemisphere. IMPRESSION: Status post left temporoparietal craniotomy with 3 cm cavity with moderate enhancement surrounding the cavity as described above suspicious for residual tumor or tumor recurrence as well as moderate T2 and FLAIR hyperintensity in the subjacent brain extending into the posterior aspect of left basal ganglia with 5 mm midline shift toward the right.
[2018-12-18 08:48] LABS: Alanine Aminotransferase 42 U/L (12-78); Albumin Level 3.1 gm/dL (3.4-5.0); Alkaline Phosphatase 57 U/L (46-116); Anion Gap 10.2 mEq/L (5-15); Aspartate Amino Transferase 11 U/L (15-37); Bilirubin,Total 0.6 mg/dL (0.2-1.0); Blood Urea Nitrogen 30 mg/dL (7-18); Calcium 8.8 mg/dL (8.5-10.1); Carbon Dioxide 31 mmol/L (21.0-32.0); Chloride 101 mmol/L (98-107); Creatinine,Serum 1.31 mg/dL (0.70-1.30); Estimated Glomerular Filt Rate 55 ml/min (>60); GFR (African American) 67 ML/MIN (>60); Glucose 157 mg/dL (74-106); Potassium 5.2 mmoL/L (3.5-5.1); Sodium 137 mmol/L (136-145); Total Protein,Serum 6.1 gm/dL (6.4-8.2)
== END ==
PROVIDERS: Visit Provider Internal Medicine Medical Oncology
DX: C71.9 Malignant neoplasm of brain, unspecified (principal)
CPT/HCPCS: 36415; 70553; 80053; 85025; A9576

== ENCOUNTER → 2019-01-11 10:16 | Outpatient (CLI) | payer BC, SELFPAY ==
[2019-01-11 11:46] LABS: Anion Gap 14.4 mEq/L (5-15); Blood Urea Nitrogen 26 mg/dL (7-18); Carbon Dioxide 32 mmol/L (21.0-32.0); Chloride 103 mmol/L (98-107); Estimated Glomerular Filt Rate 51 ml/min (>60); GFR (African American) 62 ML/MIN (>60); Glucose 127 mg/dL (74-106); Potassium 4.4 mmoL/L (3.5-5.1); Sodium 145 mmol/L (136-145)
== END ==
PROVIDERS: Visit Provider Family Medicine
DX: R60.9 Edema, unspecified (principal)
CPT/HCPCS: 36415; 80048

== ENCOUNTER → 2019-01-15 08:33 | Outpatient (CLI) | payer BC, SELFPAY ==
--- NOTE | 2019-01-15 08:36 | MR_ITS ---
MR head/brain wo/w con HISTORY: Follow-up glioblastoma ITS.REASON: GLIOBLASTOMA ORDERING PHYSICIAN: Fransisca Dsouza MD PATIENT AGE: 63 years Comparison: 12/18/2018 TECHNIQUE: Standard multiplanar multiecho sequences are performed without and following the intravenous administration of 20 mL of ProHance. FINDINGS: Status post left temporoparietal craniotomy as previously described. A cystic area with irregular margins laterally once again noted in the left temporoparietal occipital junction. The cystic area is not significant changed at 3.2 x 2.9 cm. There is somewhat irregular enhancement surrounding the periphery of the cavity with a moderate amount of T2/FLAIR signal hyperintensity in the subjacent parietal and temporal and occipital lobe. The enhancement is more prominent on today's study extending medially to the lateral margin of the posterior horn of the left lateral ventricle 4 with a 2.3 cm and extending anteriorly for with 2 cm. Previously at the same area of the anterior enhancement extended for approximately 1 cm. Remains a moderate amount of vasogenic edema slightly worse compared to the previous exam. There are slight increased midline shift to the right. Midline structures are shifted to the right x 6 mm previously 5 mm. No transtentorial or subfalcine herniation is evident. 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 IMPRESSION: Status post left temporoparietal craniotomy with persistent 3 cm cavity in the left temporoparietal junction. The cavity size is not significant change. There is moderate amount of irregular peripheral enhancement surrounding this cavity system with local recurrence of neoplasm. The enhancement is more prominent than when compared to the previous study consistent with progression of neoplastic involvement of residual or recurrent glioblastoma with crocker slight increase in edema and slight increase in midline shift to the right
== END ==
PROVIDERS: PCP Family Medicine; Visit Provider Internal Medicine Medical Oncology
DX: C71.9 Malignant neoplasm of brain, unspecified (principal)
CPT/HCPCS: 70553; A9576

== ENCOUNTER → 2019-01-24 09:56 | Outpatient (CLI) | payer BC, SELFPAY ==
[2019-01-24 10:45] VITALS: PULSE 68; PULSE 70
== END ==
PROVIDERS: PCP Family Medicine; Visit Provider Internal Medicine Medical Oncology
DX: Z01.818 Encounter for other preprocedural examination (principal); C71.8 Malignant neoplasm of overlapping sites of brain
CPT/HCPCS: 94060; 94640; 94727; 94729

== ENCOUNTER 2019-01-25 09:15 | Outpatient (CLI) | payer BC, SELFPAY ==
[2019-01-25] VITALS (7 sets, daily range): BP systolic 109–132; BP diastolic 74–86; PULSE 89–94; RESP 16–18; TEMP 36.9; O2SAT 93; BMI 33.7
[2019-01-25 09:37] LABS: Microscopic, Urine URINE MICROSCOPIC (MICROSCOPIC)
[2019-01-25 09:39] LABS: Appearance,Urine CLEAR (Clear); Bilirubin,Urine Negative (Negative); Blood, Urine Negative (Negative); Color,Urine YELLOW (Yellow); Glucose,Urine (UA) Negative (Negative); Ketones,Urine TRACE (Negative); Leukocyte Esterase,Urine Negative (Negative); Nitrate,Urine Negative (Negative); PH,Urine 5.5 (5.0-8.5); Protein,Urine Negative (Negative); Specific Gravity, Urine 1.025 (1.005-1.030); Urobilinogen,Urine 0.2 EU/dl (0.2)
[2019-01-25 09:53] LABS: Basophils % 0.2 % (0.1-2.0); Eosinophils # 0.1 K/mm3 (0.0-0.4); Eosinophils % 1.2 % (0.1-12.0); Hematocrit 41.8 % (42.0-52.0); Hemoglobin 13.8 g/dL (14.1-18.0); Lymphocytes # 1.3 K/mm3 (0.7-4.5); Lymphocytes % 12.3 % (10-50); Mean Corpuscular HGB Conc 32.9 g/dL (31.8-35.4); Mean Corpuscular Hemoglobin 32.4 pg (27.0-31.2); Mean Corpuscular Volume 98.5 fl (80-94); Mean Platelet Volume 6.7 fl (7.4-10.4); Monocytes # 0.5 K/mm3 (0.1-1.0); Neutrophils # 8.4 K/mm3 (1.8-7.8); Neutrophils % 81.2 % (37.0-80.0); Platelet Count 158 K/mm3 (142-424); Red Blood Count 4.24 M/mm3 (4.60-6.20); Red Cell Distribution Width 15.7 % (11.5-17.5); White Blood Count 10.4 K/mm3 (4.8-10.8)
[2019-01-25 09:59] LABS: Bacteria,Urine Trace /lpf; Squamous Epithelial Cell,Urine Occasional #/hpf (0-5)
== END 2019-01-25 12:45 | disposition home or self-care (01) ==
LOC: INF 09:17
PROVIDERS: Visit Provider Internal Medicine Medical Oncology
DX: Z51.11 Encounter for antineoplastic chemotherapy (principal); C71.8 Malignant neoplasm of overlapping sites of brain
CPT/HCPCS: 81001; 85025; 96413; 96415; J9035

== ENCOUNTER 2019-02-08 08:42 | Outpatient (CLI) | payer BC, SELFPAY ==
[2019-02-08 08:46] VITALS: BMI 33.7
[2019-02-08 09:02] LABS: Basophils % 0.3 % (0.1-2.0); Eosinophils % 0.5 % (0.1-12.0); Hematocrit 41.6 % (42.0-52.0); Hemoglobin 13.4 g/dL (14.1-18.0); Lymphocytes # 0.6 K/mm3 (0.7-4.5); Lymphocytes % 7.5 % (10-50); Mean Corpuscular HGB Conc 32.2 g/dL (31.8-35.4); Mean Corpuscular Hemoglobin 31.8 pg (27.0-31.2); Mean Corpuscular Volume 98.7 fl (80-94); Monocytes # 0.3 K/mm3 (0.1-1.0); Monocytes % 3.8 % (1.7-9.3); Neutrophils # 7.2 K/mm3 (1.8-7.8); Neutrophils % 87.9 % (37.0-80.0); Platelet Count 174 K/mm3 (142-424); Red Blood Count 4.21 M/mm3 (4.60-6.20); Red Cell Distribution Width 15.4 % (11.5-17.5); White Blood Count 8.2 K/mm3 (4.8-10.8)
[2019-02-08 09:08] LABS: MANUAL DIFFERENTIAL MANUAL DIFFERENTIAL (MANUAL DIFF)
[2019-02-08 09:15] LABS: Alanine Aminotransferase 54 U/L (12-78); Albumin Level 3.3 gm/dL (3.4-5.0); Albumin/Globulin Ratio 0.9 (1.1-1.8); Alkaline Phosphatase 62 U/L (46-116); Anion Gap 11.5 mEq/L (5-15); Aspartate Amino Transferase 20 U/L (15-37); Bilirubin,Total 0.4 mg/dL (0.2-1.0); Blood Urea Nitrogen 23 mg/dL (7-18); Calcium 8.7 mg/dL (8.5-10.1); Carbon Dioxide 31 mmol/L (21.0-32.0); Chloride 105 mmol/L (98-107); Creatinine Clearance Estimated 83 mL/min (50-200); Estimated Glomerular Filt Rate 56 ml/min (>60); GFR (African American) 67 ML/MIN (>60); Globulin 3.5 gm/dl (1.3-3.2); Glucose 181 mg/dL (74-106); Potassium 3.5 mmoL/L (3.5-5.1); Sodium 144 mmol/L (136-145); Total Protein,Serum 6.8 gm/dL (6.4-8.2)
[2019-02-08 09:35] LABS: Lymphocytes % 7 % (10-50); Monocytes % 2 % (2-9); Neutrophils % 90 % (42-76); Total Cells Counted 100
[2019-02-08 09:36] LABS: Platelet Estimate Normal
[2019-02-08 09:37] LABS: Microcytosis 1+
[2019-02-08 10:38] LABS: Microscopic, Urine URINE MICROSCOPIC (MICROSCOPIC)
--- NOTE | 2019-02-08 10:46 | PC.NURSE ---
pt returned to outpt dept after md appt at 1025. u/a obtained at this time and specimen sent to lab for analysis. explained to pt and family that we would await results of this to determine the final ok for treatment.
[2019-02-08 11:08] LABS: Appearance,Urine Clear (Clear); Color,Urine Yellow (Yellow); Protein,Urine Negative (Negative)
[2019-02-08 11:09] LABS: Bilirubin,Urine Negative (Negative); Blood, Urine Negative (Negative); Glucose,Urine (UA) Negative (Negative); Ketones,Urine Negative (Negative); Leukocyte Esterase,Urine Negative (Negative); Nitrate,Urine Negative (Negative); Urobilinogen,Urine 0.2 EU/dl (0.2)
[2019-02-08 11:12] LABS: RBC,Urine Occasional #/hpf (0-3); WBC,Urine Occasional #/hpf (0-3)
[2019-02-08 12:02] VITALS: BP 129/84; PULSE 97; RESP 20; TEMP 36.4; O2SAT 97
[2019-02-08 12:32] VITALS: BP 121/81; PULSE 91; RESP 20; O2SAT 98
[2019-02-08 13:00] VITALS: BP 115/81; PULSE 95; RESP 20; O2SAT 97
[2019-02-08 13:20] VITALS: BP 118/79; PULSE 94; RESP 20; O2SAT 97
== END 2019-02-08 13:30 | disposition home or self-care (01) ==
LOC: INF 08:42
PROVIDERS: Visit Provider Internal Medicine Medical Oncology
DX: Z51.11 Encounter for antineoplastic chemotherapy (principal); C71.8 Malignant neoplasm of overlapping sites of brain
CPT/HCPCS: 80053; 81001; 85007; 85025; 96413; J9035

== ENCOUNTER 2019-02-23 08:28 | Outpatient (CLI) | payer BC, SELFPAY ==
[2019-02-23 08:33] VITALS: BMI 33.0
[2019-02-23 08:46] LABS: Microscopic, Urine URINE MICROSCOPIC (MICROSCOPIC)
[2019-02-23 08:48] LABS: Appearance,Urine CLEAR (Clear); Bilirubin,Urine Negative (Negative); Blood, Urine Negative (Negative); Color,Urine YELLOW (Yellow); Glucose,Urine (UA) Negative (Negative); Ketones,Urine Negative (Negative); Leukocyte Esterase,Urine Negative (Negative); Nitrate,Urine Negative (Negative); Protein,Urine Negative (Negative); Specific Gravity, Urine 1.025 (1.005-1.030); Urobilinogen,Urine 0.2 EU/dl (0.2)
[2019-02-23 08:49] LABS: Basophils % 0.5 % (0.1-2.0); Eosinophils # 0.1 K/mm3 (0.0-0.4); Eosinophils % 1.9 % (0.1-12.0); Hematocrit 36.2 % (42.0-52.0); Hemoglobin 12.4 g/dL (14.1-18.0); Mean Corpuscular HGB Conc 34.2 g/dL (31.8-35.4); Mean Corpuscular Hemoglobin 32.4 pg (27.0-31.2); Mean Corpuscular Volume 94.6 fl (80-94); Mean Platelet Volume 8.1 fl (7.4-10.4); Monocytes # 0.3 K/mm3 (0.1-1.0); Monocytes % 5.9 % (1.7-9.3); Neutrophils % 73.6 % (37.0-80.0); Platelet Count 130 K/mm3 (142-424); Red Blood Count 3.83 M/mm3 (4.60-6.20); Red Cell Distribution Width 15.2 % (11.5-17.5); White Blood Count 5.5 K/mm3 (4.8-10.8)
[2019-02-23 08:56] LABS: Anion Gap 13.7 mEq/L (5-15); Blood Urea Nitrogen 24 mg/dL (7-18); Calcium 8.7 mg/dL (8.5-10.1); Carbon Dioxide 29 mmol/L (21.0-32.0); Chloride 104 mmol/L (98-107); Creatinine Clearance Estimated 86 mL/min (50-200); Creatinine,Serum 1.28 mg/dL (0.70-1.30); Estimated Glomerular Filt Rate 57 ml/min (>60); GFR (African American) 68 ML/MIN (>60); Glucose 140 mg/dL (74-106); Potassium 3.7 mmoL/L (3.5-5.1); Sodium 143 mmol/L (136-145)
[2019-02-23 09:26] LABS: Bacteria,Urine Trace /lpf; Squamous Epithelial Cell,Urine Occasional #/hpf (0-5)
[2019-02-23 10:15] VITALS: BP 141/85; PULSE 92; RESP 18; TEMP 36.2; O2SAT 94
[2019-02-23 10:30] VITALS: BP 135/81; PULSE 93; RESP 18; O2SAT 93
[2019-02-23 10:45] VITALS: BP 128/78; PULSE 97; RESP 18
[2019-02-23 11:00] VITALS: BP 130/70; PULSE 71; RESP 18
== END 2019-02-23 11:00 | disposition home or self-care (01) ==
LOC: INF 08:29
PROVIDERS: Visit Provider Internal Medicine Medical Oncology
DX: Z51.11 Encounter for antineoplastic chemotherapy (principal); C71.8 Malignant neoplasm of overlapping sites of brain
CPT/HCPCS: 80048; 81001; 85025; 96413; J9035

== ENCOUNTER → 2019-03-02 08:34 | Outpatient (CLI) | payer BC, SELFPAY ==
--- NOTE | 2019-03-02 08:38 | MR_ITS ---
MR head/brain wo/w con Ordering Physician: Fransisca Dsouza MD Patient Age: 63 years: Male HISTORY: ITS.REASON: GLIOBLASTOMA Glioblastoma since April 2018. This is a follow-up exam no new symptoms. TECHNIQUE: Pre and postcontrast imaging of the brain : Precontrast Multiplanar FLAIR, T1, T2 weighted images along with axial diffusion/ADC imaging performed on 1.5 T. Siemens, MRI. Postcontrast imaging [id number] mLmL ProHance T1-weighted images axial & coronal plane performed COMPARISON :MRI of brain October 2018 from the [facility] . & I now see that there is a 01/15/2019 MRI brain from [facility] . CT head 05/25/2018 FINDINGS Again see the mass lesion compatible with a treated glioblastoma at the posterior left cerebral hemisphere. This is located at the junction of the posterior temporal lobe at its junction with/posterior parietal lobe, near the left occipital lobe junction . There is left craniotomy posteriorly at the left skull Previously in 2013 there is a more well-defined enhancing ring margin. However on the 2019 more recent margin December studies there has been a broad broad area of prominent inhomogeneous enhancement about the margin of the cystic core.. This enhancement pattern has progressively decreased since December and January 2019 MR brain studies . today's study overall the enhancement has diminished.... There is a central cystic area which slightly smaller 2.9 cm AP (previously 3.3 cm AP). Today's study shows a more well-defined crescent shaped rim of semisolid appearing material now surrounding much of this this cystic area core. This crescent rim measures up to 1 cm thickness and most notable along the medial & anterior wall.-This region previously demonstrated more pronounced enhancement but now seems to have evolved into a rim of this semisolid material surrounding the much of the cystic core. Again there is less enhancement of this outer irregular now more wispy enhancing peripheral rim.... & Overall this outer enhancing rim with slightly smaller outer dimensions: On today's coronal image 18, the enhancing outer ring measures up to 4.7 cm cm transverse times nearly 4 cm height & up to 5 cm AP AP on the axial view.. . (Previously on January study at the same level on coronal image it measured up to 6-cm transverse X up to nearly 5 cm height. X up to 6.2 cm AP) . The surrounding vasogenic edema again noted but I believe may be very slightly less pronounced than previous study from this year.. With this there overall is fairly similar degree of mass effect at particularly at the level of the lesion itself There is a venous angioma/developmental venous anomaly seen at the left cerebellar hemisphere with prominent vein draining inferiorly just below the fourth ventricle, just left of midline. With this there is some mild atrophy at the left cerebellar hemisphere compared to the right Mild mass affect from the left cerebral lesion is seen encroaching upon the left supracerebellar cistern. This appears similar to previous study The right hemisphere shows no significant lesions. There are some prominent perivascular spaces. The floor the basal ganglia bilaterally on right more so than the left.... No associated gliosis signal here.. & Stable appearance of these features . visualized paranasal sinuses left maxillary sinus shows some lobulated mucosal thickening inferiorly. Left maxillary sinus: slight progression of lobulated mucosal thickening or mucous retention cysts at floor left maxillary sinus since prior January MR study. Right Maxillary sinus: Stable lobulated areas mucosal thickening versus retention cyst inferiorly. . . Mild mucosal thickening ethmoid air cells. Small sphenoid sinuses clear. Frontal sinuses clear. Mild engorgement nasal turbinates
== END ==
PROVIDERS: PCP Family Medicine; Visit Provider Internal Medicine Medical Oncology
DX: C71.8 Malignant neoplasm of overlapping sites of brain (principal)
CPT/HCPCS: 70553; A9576

== ENCOUNTER 2019-03-08 10:30 | Outpatient (CLI) | payer BC, SELFPAY ==
[2019-03-08 10:38] VITALS: BMI 33.0
[2019-03-08 11:11] LABS: Microscopic, Urine URINE MICROSCOPIC (MICROSCOPIC)
[2019-03-08 11:18] LABS: Appearance,Urine CLEAR (Clear); Bilirubin,Urine Negative (Negative); Blood, Urine Negative (Negative); Color,Urine YELLOW (Yellow); Glucose,Urine (UA) TRACE (Negative); Ketones,Urine Negative (Negative); Leukocyte Esterase,Urine Negative (Negative); Nitrate,Urine Negative (Negative); Protein,Urine Negative (Negative); Urobilinogen,Urine 0.2 EU/dl (0.2)
[2019-03-08 11:45] LABS: Bacteria,Urine Trace /lpf; Squamous Epithelial Cell,Urine Occasional #/hpf (0-5)
[2019-03-08 12:55] VITALS: BP 123/74; PULSE 93; RESP 18; TEMP 36.1; O2SAT 95
[2019-03-08 13:10] VITALS: BP 127/71; PULSE 83; RESP 18
[2019-03-08 13:25] VITALS: BP 115/72; PULSE 83; RESP 18
== END 2019-03-08 13:40 | disposition home or self-care (01) ==
LOC: INF 10:36
PROVIDERS: Visit Provider Internal Medicine Medical Oncology
DX: Z51.11 Encounter for antineoplastic chemotherapy (principal); C71.8 Malignant neoplasm of overlapping sites of brain
CPT/HCPCS: 81001; 96413; J9035

== ENCOUNTER 2019-03-21 10:00 | Outpatient (CLI) | payer BC, SELFPAY ==
[2019-03-21 10:00] VITALS: BMI 33.0
[2019-03-21 10:29] LABS: Microscopic, Urine URINE MICROSCOPIC (MICROSCOPIC)
[2019-03-21 10:33] LABS: Basophils % 0.1 % (0.1-2.0); Eosinophils # 0.1 K/mm3 (0.0-0.4); Eosinophils % 0.8 % (0.1-12.0); Hematocrit 37.9 % (42.0-52.0); Hemoglobin 12.9 g/dL (14.1-18.0); Lymphocytes # 0.7 K/mm3 (0.7-4.5); Lymphocytes % 9.1 % (10-50); Mean Corpuscular Hemoglobin 32.2 pg (27.0-31.2); Mean Corpuscular Volume 94.7 fl (80-94); Mean Platelet Volume 6.9 fl (7.4-10.4); Monocytes # 0.5 K/mm3 (0.1-1.0); Neutrophils # 5.9 K/mm3 (1.8-7.8); Platelet Count 174 K/mm3 (142-424); Red Cell Distribution Width 15.6 % (11.5-17.5); White Blood Count 7.2 K/mm3 (4.8-10.8)
[2019-03-21 10:35] LABS: Appearance,Urine CLEAR (Clear); Bilirubin,Urine Negative (Negative); Blood, Urine Negative (Negative); Color,Urine YELLOW (Yellow); Glucose,Urine (UA) Negative (Negative); Ketones,Urine Negative (Negative); Leukocyte Esterase,Urine Negative (Negative); Nitrate,Urine Negative (Negative); PH,Urine 5.5 (5.0-8.5); Protein,Urine Negative (Negative); Urobilinogen,Urine 0.2 EU/dl (0.2)
[2019-03-21 11:03] LABS: Bacteria,Urine Trace /lpf; Hyaline Casts,Urine Occasional #/lpf (0); Mucus,Urine Trace /lpf; Squamous Epithelial Cell,Urine Occasional #/hpf (0-5)
[2019-03-21 11:35] VITALS: BP 130/94; PULSE 84; RESP 20; TEMP 36.9; O2SAT 95
[2019-03-21 12:15] VITALS: BP 128/84; PULSE 84; RESP 20; TEMP 36.9; O2SAT 95
== END 2019-03-21 12:15 | disposition home or self-care (01) ==
LOC: INF 10:00
PROVIDERS: Visit Provider Internal Medicine Medical Oncology
DX: Z51.11 Encounter for antineoplastic chemotherapy (principal); C71.8 Malignant neoplasm of overlapping sites of brain
CPT/HCPCS: 81001; 85025; 96413; J9035

== ENCOUNTER 2019-04-05 09:05 | Outpatient (CLI) | payer BC, SELFPAY ==
[2019-04-05 09:18] VITALS: BMI 33.0
[2019-04-05 09:35] LABS: Microscopic, Urine URINE MICROSCOPIC (MICROSCOPIC)
[2019-04-05 09:37] LABS: Basophils % 0.5 % (0.1-2.0); Eosinophils # 0.1 K/mm3 (0.0-0.4); Hematocrit 37.6 % (42.0-52.0); Hemoglobin 12.9 g/dL (14.1-18.0); Lymphocytes % 20.3 % (10-50); Mean Corpuscular HGB Conc 34.3 g/dL (31.8-35.4); Mean Corpuscular Hemoglobin 32.5 pg (27.0-31.2); Mean Corpuscular Volume 94.7 fl (80-94); Mean Platelet Volume 8.7 fl (7.4-10.4); Monocytes # 0.3 K/mm3 (0.1-1.0); Monocytes % 5.6 % (1.7-9.3); Neutrophils # 3.6 K/mm3 (1.8-7.8); Neutrophils % 71.6 % (37.0-80.0); Platelet Count 76 K/mm3 (142-424); Red Blood Count 3.97 M/mm3 (4.60-6.20); Red Cell Distribution Width 15.7 % (11.5-17.5)
[2019-04-05 09:38] LABS: Appearance,Urine SL CLOUDY (Clear); Blood, Urine Negative (Negative); Color,Urine YELLOW (Yellow); Glucose,Urine (UA) Negative (Negative); Ketones,Urine Negative (Negative); Leukocyte Esterase,Urine Negative (Negative); Nitrate,Urine Negative (Negative); PH,Urine 5.5 (5.0-8.5); Protein,Urine Negative (Negative); Specific Gravity, Urine >= 1.030 (1.005-1.030); Urobilinogen,Urine 0.2 EU/dl (0.2)
[2019-04-05 09:47] LABS: Bilirubin,Urine Negative (Negative)
[2019-04-05 09:50] LABS: Alanine Aminotransferase 34 U/L (12-78); Albumin Level 3.2 gm/dL (3.4-5.0); Albumin/Globulin Ratio 0.9 (1.1-1.8); Alkaline Phosphatase 67 U/L (46-116); Anion Gap 13.4 mEq/L (5-15); Aspartate Amino Transferase 19 U/L (15-37); Bilirubin,Total 0.6 mg/dL (0.2-1.0); Blood Urea Nitrogen 19 mg/dL (7-18); Calcium 8.6 mg/dL (8.5-10.1); Carbon Dioxide 27 mmol/L (21.0-32.0); Chloride 104 mmol/L (98-107); Creatinine Clearance Estimated 79 mL/min (50-200); Estimated Glomerular Filt Rate 51 ml/min (>60); GFR (African American) 62 ML/MIN (>60); Globulin 3.4 gm/dl (1.3-3.2); Glucose 150 mg/dL (74-106); Potassium 3.4 mmoL/L (3.5-5.1); Sodium 141 mmol/L (136-145); Total Protein,Serum 6.6 gm/dL (6.4-8.2)
[2019-04-05 09:53] LABS: Bacteria,Urine Trace /lpf; Mucus,Urine 3+ /lpf
== END 2019-04-05 09:35 | disposition home or self-care (01) ==
LOC: INF 09:14
PROVIDERS: Visit Provider Internal Medicine Medical Oncology
DX: C71.8 Malignant neoplasm of overlapping sites of brain (principal)
CPT/HCPCS: 80053; 81001; 85025

== ENCOUNTER 2019-04-06 10:25 | Outpatient (CLI) | payer BC, SELFPAY ==
[2019-04-06 11:10] VITALS: BP 122/85; PULSE 95; RESP 18; TEMP 36.8
[2019-04-06 11:25] VITALS: BP 137/86; PULSE 90; RESP 18
[2019-04-06 11:40] VITALS: BP 140/87; PULSE 89; RESP 16
== END 2019-04-06 12:00 | disposition home or self-care (01) ==
LOC: INF 10:35
PROVIDERS: Visit Provider Internal Medicine Medical Oncology
DX: C71.8 Malignant neoplasm of overlapping sites of brain (principal); Z51.11 Encounter for antineoplastic chemotherapy
CPT/HCPCS: 96413; J9035

== ENCOUNTER → 2019-04-13 08:33 | Outpatient (CLI) | payer BC, SELFPAY ==
--- NOTE | 2019-04-13 08:36 | MR_ITS ---
MR head/brain wo/w con HISTORY: Follow-up brain tumor ITS.REASON: GLIOBLASTOMA ORDERING PHYSICIAN: Fransisca Dsouza MD PATIENT AGE: 63 years Comparison: 03/02/2019 TECHNIQUE: Standard multiplanar multiecho sequences are performed without and with gadolinium enhancement. FINDINGS: There is an enhancing left temporal lobe mass once again noted with cystic component posteriorly. The mass measures 5.2 x 4.4 x 4.6 cm AP, transverse, and cephalad to caudad. The margins are somewhat irregular. Previous measurements are 5 x 4.5 x 4 cm.. There is some irregular enhancement of the mass and a mild amount of. Tumoral edema. Mild restricted diffusion is present around the periphery of the mass. The cystic component is essentially unchanged. There is mild impression upon the occipital horn left lateral ventricle. There is minimal midline shift to the right approximate 4 mm. This is not significantly changed. No other lesions are evident. IMPRESSION: 1. The irregular peripherally enhancing and partially cystic left temporal lobe mass consistent with a GBM is slightly larger compared to the previous exam.. There is mild midline shift toward the right which is not significant changed. 2. No new abnormalities are evident.
== END ==
PROVIDERS: PCP Family Medicine; Visit Provider Internal Medicine Medical Oncology
DX: C71.9 Malignant neoplasm of brain, unspecified (principal)
CPT/HCPCS: 70553; A9576

== ENCOUNTER 2019-04-19 08:20 | Outpatient (CLI) | payer BC, SELFPAY ==
[2019-04-19 08:25] VITALS: BMI 32.1
[2019-04-19 08:39] LABS: Basophils % 0.3 % (0.1-2.0); Eosinophils # 0.1 K/mm3 (0.0-0.4); Eosinophils % 2.1 % (0.1-12.0); Hematocrit 39.1 % (42.0-52.0); Hemoglobin 12.8 g/dL (14.1-18.0); Lymphocytes # 0.9 K/mm3 (0.7-4.5); Lymphocytes % 22.5 % (10-50); Mean Corpuscular HGB Conc 32.9 g/dL (31.8-35.4); Mean Corpuscular Hemoglobin 31.1 pg (27.0-31.2); Mean Corpuscular Volume 94.7 fl (80-94); Mean Platelet Volume 7.8 fl (7.4-10.4); Monocytes # 0.3 K/mm3 (0.1-1.0); Monocytes % 7.1 % (1.7-9.3); Neutrophils # 2.7 K/mm3 (1.8-7.8); Platelet Count 211 K/mm3 (142-424); Red Blood Count 4.13 M/mm3 (4.60-6.20); White Blood Count 3.9 K/mm3 (4.8-10.8)
[2019-04-19 08:54] LABS: Alanine Aminotransferase 41 U/L (12-78); Albumin Level 2.9 gm/dL (3.4-5.0); Albumin/Globulin Ratio 0.9 (1.1-1.8); Alkaline Phosphatase 76 U/L (46-116); Anion Gap 9.1 mEq/L (5-15); Aspartate Amino Transferase 25 U/L (15-37); Bilirubin,Total 0.4 mg/dL (0.2-1.0); Blood Urea Nitrogen 18 mg/dL (7-18); Calcium 8.5 mg/dL (8.5-10.1); Carbon Dioxide 32 mmol/L (21.0-32.0); Chloride 107 mmol/L (98-107); Creatinine Clearance Estimated 83 mL/min (50-200); Creatinine,Serum 1.29 mg/dL (0.70-1.30); Estimated Glomerular Filt Rate 56 ml/min (>60); GFR (African American) 68 ML/MIN (>60); Globulin 3.3 gm/dl (1.3-3.2); Glucose 95 mg/dL (74-106); Potassium 4.1 mmoL/L (3.5-5.1); Sodium 144 mmol/L (136-145); Total Protein,Serum 6.2 gm/dL (6.4-8.2)
[2019-04-19 10:08] LABS: Appearance,Urine CLEAR (Clear); Bilirubin,Urine Negative (Negative); Blood, Urine Negative (Negative); Color,Urine YELLOW (Yellow); Glucose,Urine (UA) Negative (Negative); Ketones,Urine Negative (Negative); Leukocyte Esterase,Urine Negative (Negative); Microscopic, Urine URINE MICROSCOPIC (MICROSCOPIC); Nitrate,Urine Negative (Negative); Protein,Urine Negative (Negative); Urobilinogen,Urine 0.2 EU/dl (0.2)
[2019-04-19 10:25] LABS: Bacteria,Urine Trace /lpf
[2019-04-19 11:57] VITALS: BP 145/99; PULSE 75; RESP 20; TEMP 36.7; O2SAT 97
[2019-04-19 12:27] VITALS: BP 136/84; PULSE 78; RESP 20; O2SAT 97
[2019-04-19 12:57] VITALS: BP 133/91; PULSE 75; RESP 18; O2SAT 98
[2019-04-19 13:27] VITALS: BP 138/83; PULSE 74; RESP 18; O2SAT 97
[2019-04-19 13:57] VITALS: BP 140/85; PULSE 76; RESP 18; O2SAT 98
[2019-04-19 14:25] VITALS: BP 131/87; PULSE 71; RESP 18; O2SAT 98
== END 2019-04-19 14:25 | disposition home or self-care (01) ==
LOC: INF 08:23
PROVIDERS: Visit Provider Internal Medicine Medical Oncology
DX: C71.8 Malignant neoplasm of overlapping sites of brain (principal); Z51.11 Encounter for antineoplastic chemotherapy
CPT/HCPCS: 80053; 81001; 85025; 96413; 96415; 96417; J9035; J9206; Q0166

== ENCOUNTER → 2019-04-23 11:02 | Outpatient (CLI) | payer BC, SELFPAY ==
--- NOTE | 2019-04-23 11:08 | XR_ITS ---
XR chest 2V HISTORY: ITS.REASON: BRONCHITIS ORDERING PHYSICIAN: Enedelia Jefferson APRN PATIENT AGE: 63 years COMPARISON: 01/05/2019 FINDINGS: The cardiomediastinal silhouette and pulmonary vascularity are within normal limits. The lungs are clear without infiltrates, suspicious nodules, or pleural effusions. There is evidence of old granulomatous disease with multiple calcified hilar lymph nodes. Mild atelectatic or fibrotic changes are present in the right mid lung No acute bony abnormalities. IMPRESSION: No change with no acute finding
== END ==
PROVIDERS: PCP Nurse Practitioner Family; Visit Provider Nurse Practitioner Family
DX: J40 Bronchitis, not specified as acute or chronic (principal)
CPT/HCPCS: 71046

== ENCOUNTER 2019-05-03 11:02 | Outpatient (CLI) | payer BC, SELFPAY ==
[2019-05-03 11:05] VITALS: BMI 32.5
[2019-05-03 11:17] LABS: Microscopic, Urine URINE MICROSCOPIC (MICROSCOPIC)
[2019-05-03 11:19] LABS: Appearance,Urine CLEAR (Clear); Bilirubin,Urine Negative (Negative); Blood, Urine Negative (Negative); Color,Urine YELLOW (Yellow); Glucose,Urine (UA) Negative (Negative); Ketones,Urine Negative (Negative); Leukocyte Esterase,Urine Negative (Negative); Nitrate,Urine Negative (Negative); Protein,Urine Negative (Negative); Specific Gravity, Urine >= 1.030 (1.005-1.030); Urobilinogen,Urine 0.2 EU/dl (0.2)
[2019-05-03 11:19] LABS: Basophils % 0.6 % (0.1-2.0); Eosinophils # 0.1 K/mm3 (0.0-0.4); Eosinophils % 1.5 % (0.1-12.0); Hematocrit 39.2 % (42.0-52.0); Hemoglobin 12.6 g/dL (14.1-18.0); Lymphocytes # 1.3 K/mm3 (0.7-4.5); Mean Corpuscular HGB Conc 32.1 g/dL (31.8-35.4); Mean Corpuscular Volume 93.7 fl (80-94); Mean Platelet Volume 8.2 fl (7.4-10.4); Monocytes # 0.5 K/mm3 (0.1-1.0); Monocytes % 6.9 % (1.7-9.3); Neutrophils # 4.8 K/mm3 (1.8-7.8); Neutrophils % 72.1 % (37.0-80.0); Platelet Count 170 K/mm3 (142-424); Red Blood Count 4.18 M/mm3 (4.60-6.20); Red Cell Distribution Width 15.2 % (11.5-17.5); White Blood Count 6.7 K/mm3 (4.8-10.8)
[2019-05-03 11:23] LABS: Bacteria,Urine 1+ /lpf; Mucus,Urine 4+ /lpf; WBC,Urine Occasional #/hpf (0-3)
[2019-05-03 11:30] LABS: Alanine Aminotransferase 90 U/L (12-78); Albumin Level 2.8 gm/dL (3.4-5.0); Albumin/Globulin Ratio 0.8 (1.1-1.8); Alkaline Phosphatase 78 U/L (46-116); Anion Gap 12.8 mEq/L (5-15); Aspartate Amino Transferase 26 U/L (15-37); Bilirubin,Total 0.3 mg/dL (0.2-1.0); Blood Urea Nitrogen 19 mg/dL (7-18); Calcium 8.5 mg/dL (8.5-10.1); Carbon Dioxide 28 mmol/L (21.0-32.0); Chloride 106 mmol/L (98-107); Creatinine Clearance Estimated 89 mL/min (50-200); Creatinine,Serum 1.22 mg/dL (0.70-1.30); Estimated Glomerular Filt Rate 60 ml/min (>60); GFR (African American) 72 ML/MIN (>60); Globulin 3.6 gm/dl (1.3-3.2); Glucose 102 mg/dL (74-106); Potassium 3.8 mmoL/L (3.5-5.1); Sodium 143 mmol/L (136-145); Total Protein,Serum 6.4 gm/dL (6.4-8.2)
--- NOTE | 2019-05-03 12:07 | PC.NURSE ---
1110-kayden Ordoro, here to draw cbc, cmp and take ua to lab. pt pt to 's office for appointment, will return tomorrow for chemo infusion.
== END 2019-05-03 11:14 | disposition home or self-care (01) ==
LOC: INF 11:02
PROVIDERS: Visit Provider Internal Medicine Medical Oncology
DX: C71.8 Malignant neoplasm of overlapping sites of brain (principal)
CPT/HCPCS: 80053; 81001; 85025

== ENCOUNTER 2019-05-04 10:00 | Outpatient (CLI) | payer BC, SELFPAY ==
[2019-05-04] VITALS (10 sets, daily range): BP systolic 111–162; BP diastolic 72–90; PULSE 68–85; RESP 16–18; TEMP 36.4
== END 2019-05-04 13:40 | disposition home or self-care (01) ==
LOC: INF 10:09
PROVIDERS: Visit Provider Internal Medicine Medical Oncology
DX: Z51.11 Encounter for antineoplastic chemotherapy (principal); C71.8 Malignant neoplasm of overlapping sites of brain
CPT/HCPCS: 96413; 96415; 96417; J9035; J9206; Q0166

== ENCOUNTER → 2019-05-10 17:58 | Outpatient (CLI) | payer BC, SELFPAY ==
--- NOTE | 2019-05-10 18:18 | XR_ITS ---
XR KUB HISTORY: ORDERING PHYSICIAN: eJred Tavares MD PATIENT AGE: 63 years COMPARISON: None FINDINGS: The bowel gas pattern is unremarkable. No obvious obstruction.. There are pelvic small round calcifications suggesting phleboliths however closer to the midline of the pelvis there is a 10 mm calcific density. There are no definite calcific densities overlying the renal shadows.. No acute bony anomalies evident. IMPRESSION: No acute process. Pelvic phleboliths. However the larger pelvic calcification is nonspecific and could be a urinary bladder stone.
== END ==
PROVIDERS: PCP Family Medicine; Visit Provider Family Medicine
DX: R10.84 Generalized abdominal pain (principal); K59.00 Constipation, unspecified
CPT/HCPCS: 74018

== ENCOUNTER 2019-05-12 06:44 | Inpatient (IN) ==
[2019-05-12 07:32] LABS: Basophils % 0.1 % (0.1-2.0); Eosinophils # 0.1 K/mm3 (0.0-0.4); Eosinophils % 1.8 % (0.1-12.0); Hematocrit 39.9 % (42.0-52.0); Hemoglobin 12.8 g/dL (14.1-18.0); Lymphocytes % 13.5 % (10-50); Mean Corpuscular HGB Conc 32.1 g/dL (31.8-35.4); Mean Corpuscular Volume 99.8 fl (80-94); Mean Platelet Volume 7.5 fl (7.4-10.4); Monocytes # 0.4 K/mm3 (0.1-1.0); Monocytes % 4.8 % (1.7-9.3); Neutrophils # 5.8 K/mm3 (1.8-7.8); Neutrophils % 79.7 % (37.0-80.0); Platelet Count 168 K/mm3 (142-424); Red Cell Distribution Width 16.1 % (11.5-17.5); White Blood Count 7.3 K/mm3 (4.8-10.8)
[2019-05-12 07:37] LABS: Albumin Level 2.6 gm/dL (3.4-5.0); Bilirubin,Direct 0.2 mg/dL (0.0-0.2); Bilirubin,Indirect 0.4 mg/dL (0.0-0.9); Bilirubin,Total 0.6 mg/dL (0.2-1.0); Calcium 8.8 mg/dL (8.5-10.1)
[2019-05-12 07:59] LABS: C-Reactive Protein 32.7 mg/L (0.0-0.9)
[2019-05-12 08:01] LABS: Erythrocyte Sedimentation Rate > 140 mm/hr (0-20)
[2019-05-12 08:04] LABS: Appearance,Urine SL CLOUDY (Clear); Blood, Urine TRACE-I (Negative); Color,Urine YELLOW (Yellow); Glucose,Urine (UA) Negative (Negative); Ketones,Urine Negative (Negative); Leukocyte Esterase,Urine Negative (Negative); Microscopic, Urine URINE MICROSCOPIC (MICROSCOPIC); PH,Urine 5.5 (5.0-8.5); Protein,Urine 1+ (Negative); Specific Gravity, Urine >= 1.030 (1.005-1.030); Urobilinogen,Urine 0.2 EU/dl (0.2)
[2019-05-12 08:12] LABS: Bacteria,Urine 4+ /lpf; Mucus,Urine 2+ /lpf; RBC,Urine Occasional #/hpf (0-3); Squamous Epithelial Cell,Urine Occasional #/hpf (0-5)
[2019-05-12 08:13] LABS: Bilirubin,Urine Negative (Negative)
--- NOTE | 2019-05-12 08:59 | Emergency Department Note ---
ED Disposition Clinical Impression: Upper abdominal pain, Reflux esophagitis, Chronic steroid use, Glioblastoma multiforme of central nervous system, Cushingoid side effect of steroids, Full code status Disposition: Still a Patient Condition on Discharge: Fair Instructions: DI for Acute Abdomen Referrals: Jered Tavares MD [Primary Care Provider] - - Critical Care Critical Care Time: No Attestation: On 05/12/19, the high probability of a clinically significant, sudden or life threatening deterioration of the following system(s) required my full and direct attention, intervention and personal management. The time I documented below is in addition to time spent performing reported procedures but includes the following listed in this critical care notation. Medical Decision Making - Medical Records Medical records reviewed: Yes: I reviewed the patient's medical records. - Venkatesh Inquiry Pt receiving controlled substance: No Venkatesh was queried for this patient: No Vital Signs: 05/12/19 07:06 05/12/19 08:59 Temperature 98.7 F Temperature Source Oral Pulse Rate [Left] 109 H 107 H Respiratory Rate 20 18 Blood Pressure [Right Arm] 184/118 H 146/94 H Blood Pressure Mean [Right Arm] 140 111 Blood Pressure Source [Right Arm] Automatic Cuff Automatic Cuff Blood Pressure Position [Right Arm] Sitting Supine 02 Sat by Pulse Oximetry 92 L 99 Oxygen Delivery Method Room Air - Lab Data Lab Results 05/12/19 07:15: WBC 7.3, RBC 4.00 L, Hgb 12.8 L, Hct 39.9 L, MCV 99.8 H, MCH 32.0 H, MCHC 32.1, RDW 16.1, Plt Count 168, MPV 7.5, Neut % (Auto) 79.7, Lymph % (Auto) 13.5, [place] % (Auto) 4.8, Eos % (Auto) 1.8, Baso % (Auto) 0.1, Neut # (Auto) 5.8, Lymph # (Auto) 1.0, [place] # (Auto) 0.4, Eos # (Auto) 0.1, Baso # (Auto) 0.0, ESR > 140 H 05/12/19 07:15: Sodium 136, Potassium 4.0, Chloride 99, Carbon Dioxide 27, Anion Gap 14.0, BUN 20 H, Creatinine 1.08, Estimated Creat Clear 98, Estimated GFR 69, Est GFR ( Amer) 83, Glucose 140 H, Calcium 8.8, Total Bilirubin 0.6, Direct Bilirubin 0.2, Indirect Bilirubin 0.4, AST 27, ALT 63, Alkaline Phosphatase 86, C-Reactive Protein 32.7 H D, Total Protein 7.0, Albumin 2.6 L, Lipase 73 05/12/19 07:50: Urine Color Yellow, Urine Appearance Sl cloudy, Urine pH 5.5, Ur Specific [place] >= 1.030, Urine Protein 1+, Urine Glucose (UA) Negative, Urine Ketones Negative, Urine Blood Trace-i, Urine Nitrate Negative, Urine Bilirubin Negative, Urine Urobilinogen 0.2, Ur Leukocyte Esterase Negative, Urine RBC Occasional, Urine WBC 3-5, Ur Squamous Epith Cells Occasional, Urine Bacteria 4+, Urine Mucus 2+ Result diagrams: 05/12/19 07:15 05/12/19 07:15 Orders (Tests/Meds): ED MEDICATIONS Generic Name Dose Route Start Last Admin Trade Name Freq PRN Reason Stop Dose Admin Sodium Chloride 1,000 mls @ 999 mls/hr 05/12/19 07:15 05/12/19 07:29 Sod Chlor 0.9% 1000ml Bag IV 05/12/19 08:15 999 mls/hr .Q1H1M EDUARDO Administration Sodium Chloride 10 ml 05/12/19 07:14 Saline Flush 10ml Syringe IV 06/11/19 07:13 NEEDED PRN Maintain IV Site Sodium Chloride 10 ml 05/12/19 09:12 Saline Flush 10ml Syringe IV 06/11/19 09:11 NEEDED PRN Maintain IV Site Sodium Chloride 10 ml 05/12/19 09:12 Saline Flush 10ml Syringe IV 06/11/19 09:11 NEEDED PRN Maintain IV Site Discontinued Medications Generic Name Dose Route Start Last Admin Trade Name Freq PRN Reason Stop Dose Admin Famotidine 20 mg 05/12/19 07:14 05/12/19 07:38 Pepcid 20mg/2ml Vial IV 05/12/19 07:15 20 mg ONCE ONE Administration Famotidine 20 mg 05/12/19 09:12 05/12/19 09:15 Pepcid 20mg/2ml Vial IV 05/12/19 09:13 20 mg ONCE ONE Administration Ketorolac Tromethamine 30 mg 05/12/19 07:14 05/12/19 07:38 Toradol 30mg/Ml Vial IV 05/12/19 07:15 30 mg ONCE ONE Administration Metoclopramide HCl 10 mg 05/12/19 07:14 05/12/19 07:38 Reglan 10mg/2ml Vial IVP 05/12/19 07:15 10 mg ONCE ONE Administration Ondansetron HCl 4 mg 05/12/19 07:14 05/12/19 07:38 Zofran 4mg/2ml Vial IV 05/12/19 07:15 4 mg ONCE ONE Administration Pantoprazole Sodium 40 mg 05/12/19 09:12 05/12/19 09:15 Protonix 40mg Vial IV 05/12/19 09:13 40 mg ONCE ONE Administration Sodium Chloride 8 ml 05/12/19 07:14 05/12/19 07:38 Saline Flush 10ml Syringe IV 05/12/19 07:15 8 ml ONCE ONE Administration Sodium Chloride 8 ml 05/12/19 09:12 05/12/19 09:16 Saline Flush 10ml Syringe IV 05/12/19 09:13 8 ml ONCE ONE Administration Sodium Chloride 8 ml 05/12/19 09:12 05/12/19 09:16 Saline Flush 10ml Syringe IV 05/12/19 09:13 8 ml ONCE ONE Administration Tramadol HCl 50 mg 05/12/19 09:13 05/12/19 08:45 Ultram 50mg Tablet PO 05/12/19 09:14 50 mg ONCE ONE Administration ORDERS Category Date Time Status Abdomen XR flat & upright [XR acute abdomen series] Exams 05/12/19 08:54 Taken Stat Urine Culture Stat Micro 05/12/19 07:50 Received - Radiology Data #1 Image(s): Chest, Abdomen Image Reviewed: Yes I reviewed the patient's radiology image Preliminary Findings: Abnormal Chest x-ray: Fluid in the fissure bilateral effusion no acute change. Abdomen x-ray: No free air, no fluid level, gas in the colon, bladder and pelvic calcifications, no acute findings. Medical Decision Narrative: I reviewed the patient's prior CTA of the chest MRI of the brain CT abdomen and most recent abdominal x-ray by Dr. Berto Mullen on May 10. I compared his blood work CBC and CMP in addition to CRP and sed rate. I had an extensive discussion with the and his daughter in his presence. This point the type of the pain seemed to be reflux espophagitis and /or gastritis secondary to chronic steroid use. Distally he cannot express himself properly to describe the type of the pain and what makes it better worse. I called Dr. Spears was chief console operator for Dr. Tavares discussed above findings with him at this point he will get a trial of H2 blockers and Protonix. Monitor his stool for Hemoccult and consult surgery if needed. The family is agreeable for admission. Abdominal Pain HPI - General Chief Complaint: Abdominal Pain Stated Complaint: Stomach and back pain Time Seen by Provider: 05/12/19 08:00 Mode of Arrival: Wheelchair Limitations: Language Barrier Description of Symptoms (Recalled from ER Triage Doc. by RN): Pt's states he continues to have abd pain - History of Present Illness HPI narrative: Mr. Chew is a 63 years old WM with history of glioblastoma multiforme of the left temporal lobe with midline shift diagnosed in april 13, 2018 underwent a biopsy followed by radiation therapy concurrent with chemotherapy from [facility]. He is currently maintained on Decadron 2 mg daily, he has failed multiple attempts to wean him of Decadron using Avastin, patient does not have H2 blockers or PPI on board. 5 days ago he started experiencing upper abdominal pain that is worse on laying down, he was seen by his primary care physician underwent a normal KUB, he was seen by the ED physician last night underwent a negative CT scan for acute findings and his symptoms were relieved using Reglan. Since yesterday has been having bloody mucus expectoration, without vomiting, diarrhea, or melanotic stool. Fact the believes he is constipated. Patient refuses to lay down and he is comfortable sitting up and going to sleep. MD complaint: abdominal pain Onset (ago): day(s) (5 days) Consistency: intermittent Location: epigastric Severity scale (1-10): 1 Quality: cramping Radiation: none Relieving factors: other (sitting up) Exacerbating factors: other (Lying down flat ) Associated symptoms: denies other symptoms, hematemesis Treatments prior to arrival: antacids - Related Data Home Medications Medication Instructions Recorded Confirmed Allopurinol [Allopurinol 100mg 100 mg PO DAILY 05/02/18 05/12/19 tablet] Aspirin [Aspirin 81mg EC Tab] 81 mg PO DAILY 05/02/18 05/12/19 Lovastatin 40 mg PO HS 05/02/18 05/12/19 Ondansetron HCl [Ondansetron 8mg 8 mg PO DAILY 01/05/19 05/12/19 Tablet] risperidone 0.5 mg tablet 0.5 mg PO BID tab 01/25/19 05/12/19 dexamethasone 1 mg/mL drops 2 mg PO DAILY 02/08/19 05/12/19 (concentrate) irinotecan 40 mg/2 mL intravenous 280 mg IV DIRECTED ml 04/19/19 05/12/19 solution loratadine 10 mg tablet 10 mg PO DAILY 04/19/19 05/12/19 Bevacizumab [Avastin 100mg] 25 mg IV DAILY 04/23/19 05/12/19 Hydrocortisone 5 mg PO DAILY 04/23/19 05/12/19 paroxetine 10 mg tablet 10 mg PO DAILY 05/03/19 05/12/19 Tramadol HCl [Tramadol 50mg 50 mg PO BID 05/12/19 05/12/19 Tab] Allergies Allergy/AdvReac Type Severity Reaction Status Date / Time Sulfa (Sulfonamide Allergy Unknown Verified 05/03/19 11:55 Antibiotics) [SULFA (SULFONAMIDE ANTIBIOTICS)] dexamethasone Allergy Verified 05/03/19 11:55 vancomycin Allergy Verified 05/03/19 11:55 [facility] History - Hepatitis A Screen Drug use history?: No High risk sexual behaviors?: No History of sexually transmitted infection?: No Currently employed?: No Childcare worker?: No Do you have indoor plumbing?: Yes Do you have electricity?: Yes Attestation statement:: This patient has been screened for Hepatitis A risk factors. I have reviewed the patient's past medical history: Yes Medical History: Reports:: Cancer, Hyperlipidemia, Lung Disease, Kidney Stones Denies:: Diabetes Mellitus Type 1, Diabetes Mellitus Type 2, Internal P acemaker, MRSA Laterality Cases: Bilateral: Other Other Surgeries: Yes: Cancer Surgery (Removal of glioblastoma tumor). No: Pacemaker Amputation: No Fractures: Yes (left arm plate) Comment: right knee scope, nerve repair left arm d/t chainsaw injury, L5/S1 hemilaminectomy/discectomy, kidney stones - Social History Smoking Status: Former smoker Tobacco Type: cigarettes Alcohol Intake: never Alcohol Intake Frequency:: other Substance Use Type: denies use Occupational Status: retired Housing: house Household Members: spouse - Psychiatric History Expresses thoughts of harming self/others: None Suicide Plan Description: No Plan Family Hx:: Cancer, Heart Attack ROS Obtained: Yes All systems reviewed & no additional complaints Physical Exam - General General appearance: alert, in no apparent distress, obese, other (cushinoid features and buffalo hump. ) - Head Head exam: atraumatic, normocephalic, normal inspection - Eye Eye exam: Present: normal appearance, PERRL, EOMI. Absent: scleral icterus, nystagmus - ENT ENT exam: Present: normal exam, normal oropharynx, mucous membranes moist, TM's normal bilaterally, normal external ear exam - Neck Neck exam: Present: normal inspection, full ROM, trachea midline. Absent: tenderness, meningismus, lymphadenopathy - Chest Chest inspection: Present: normal inspection, symmetric chest wall rise. Absent: tenderness - Respiratory Respiratory exam: Present: normal lung sounds bilaterally. Absent: respiratory distress, wheezes - Cardiovascular Cardiovascular exam: Present: regular rate, normal rhythm, normal heart sounds. Absent: JVD - Abdominal Exam Abdominal exam: Present: soft, tenderness, normal bowel sounds. Absent: distention, guarding, rebound, rigidity, Olivera's sign, tenderness at McBurney's Point Abdominal tenderness: Present: epigastrium - exam: Present: normal inspection, normal testicular lie, circumcised. Absent: testicular tenderness, urethral discharge, scrotal swelling - Extremities Exam Extremities exam: Present: normal inspection, full ROM, normal capillary refill. Absent: calf tenderness - Back Exam Back exam: Present: normal inspection. Absent: tenderness, CVA tenderness (R), CVA tenderness (L) - Neurological Exam Neurological exam: Present: alert, oriented X3, CN II-XII intact, motor sensory deficit, reflexes normal - Psychiatric Psychiatric exam: Present: normal affect, normal mood - Skin Skin exam: Present: warm, dry, intact, normal color - Lymphatic Lymphatic Findings: no adenopathy
--- NOTE | 2019-05-12 13:48 | History & Physical Report ---
*Admission Date: 05/12/19 *Chief complaint: Generalized abdominal pain, upper back pain, glioblastoma multiforme *History of present illness: This 63-year-old white male was diagnosed with glioblastoma multiforme April 2018. His lesion is of the temporal and parietal lobe. He has been treated at the [facility] and at [facility]. He was seen on May [address] Tavares with complaints of low back pain for approximately 1 day. He also had abdominal pain. In fact it was hard to localize where the patient was actually uncomfortable. His is been concerned about constipation. He has had some diarrhea with chemo treatments. He has a history of renal stones as well. His recent CT scan showed an intrarenal stone but no active passage of stone. There was a calcified area seen in the bladder. His recent CT did not show evidence of significant constipation. The family reports that when he tries to lie back he has a lot of discomfort in his back and chest region and he will cough and bring up bloody mucus. According to his recent medication list he receives a Avastin 25 mg/mL intravenously every 2 weeks as well as irinotecan 20 mg/mL every 2 weeks IV. Recently he has been receiving dexamethasone concentrate 4 mg in the morning and 2 mg in the afternoon. The ER physician raised the possibility that patient may be having gastritis and that the dexamethasone might be complicating this. The patient was admitted from the emergency room for further evaluation and for pain control. [facility] History Medical History: Reports:: Cancer, Hyperlipidemia, Hypertension, Lung Disease, Kidney Stones Denies:: Diabetes Mellitus Type 1, Diabetes Mellitus Type 2, Internal Pacemaker, MRSA *Have you ever received a pneumonia vaccine?: No *Have you received a flu vaccine this season?: No Other Medical History: Reports: Arthritis, Cataracts, Chemotherapy, Radiation Therapy Laterality Cases: Bilateral: Other Other Surgeries: Yes: Cancer Surgery (Removal of glioblastoma tumor). No: Pacemaker Amputation: No Fractures: Yes (left arm plate) Comment: Renal stones in 1988. Left lower arm injury December 2008 with ORIF. Right knee arthroscopy November 2012. L5-S1 hemilaminectomy/discectomy June 19, 2013. Chainsaw injury to left arm with nerve injury March 2016. - *Social History Educational Level: Completed High School Smoking Status: Former smoker Tobacco Type: cigarettes Smoking End Date: 1979 Alcohol Intake: never Alcohol Intake Frequency:: other Substance Use Type: denies use *Occupational Status:: retired Housing: house Household Members: spouse *Travel in the last 8 weeks: None - Psychiatric History Expresses thoughts of harming self/others: None Suicide Plan Description: No Plan Family Hx:: Unable to obtain Review of Systems - Constitutional Denies anorexia (According to the family he does eat.) - Eyes Denies change in vision - ENT Denies bleeding gums, Denies headache(s) - *Cardiovascular Reports chest pain, Denies shortness of breath - *Respiratory Reports change in phlegm color (Bloody), Reports cough, Denies shortness of breath - *Gastrointestinal Reports abdominal pain (But nonspecific.), Reports constipation, Denies vomiting - *Genitourinary Denies difficulty urinating - *Musculoskeletal Reports abnormal walking, Reports decreased muscle mass, Reports back pain, Reports muscle weakness - Integumentary/Breasts Denies rash - *Neurologic Reports abnormal walking, Reports abnormal speech (He does not carry on a normal conversation but can respond to some question), Reports confusion, Reports unsteadiness, Reports weakness - Hematologic/Lymphatic Reports easy bruising Meds Home Medications Medication Instructions Recorded Confirmed Type Allopurinol [Allopurinol 100mg 100 mg PO DAILY 05/02/18 05/12/19 History tablet] Aspirin [Aspirin 81mg EC Tab] 81 mg PO DAILY 05/02/18 05/12/19 History Lovastatin 40 mg PO HS 05/02/18 05/12/19 History Ondansetron HCl [Ondansetron 8mg 8 mg PO DAILY 01/05/19 05/12/19 History Tablet] risperidone 0.5 mg tablet 0.5 mg PO BID tab 01/25/19 05/12/19 History dexamethasone 1 mg/mL drops 2 mg PO DAILY 02/08/19 05/12/19 History (concentrate) irinotecan 40 mg/2 mL intravenous 280 mg IV DIRECTED ml 04/19/19 05/12/19 History solution loratadine 10 mg tablet 10 mg PO DAILY 04/19/19 05/12/19 History Bevacizumab [Avastin 100mg] 25 mg IV DAILY 04/23/19 05/12/19 History Hydrocortisone 5 mg PO DAILY 04/23/19 05/12/19 History paroxetine 10 mg tablet 10 mg PO DAILY 05/03/19 05/12/19 History Cholecalciferol (Vitamin D3) 1,000 unit PO DAILY 05/12/19 05/12/19 History [Vitamin D3 1,000 Unit Cap] Famotidine 10 mg PO DAILY 05/12/19 05/12/19 History Furosemide [Furosemide 20mg Tab] 20 mg PO DAILY PRN 05/12/19 05/12/19 History Sennosides/Docusate Sodium 1 each PO DAILY 05/12/19 05/12/19 History [Docusate Sodium-Senna Tablet] Tramadol HCl [Tramadol 50mg 50 mg PO BID 05/12/19 05/12/19 History Tab] Ubidecarenone/Vit E Acet [Co Q-10 1 each PO DAILY 05/12/19 05/12/19 History 100 mg Softgel] Allergies Allergy/AdvReac Type Severity Reaction Status Date / Time Sulfa (Sulfonamide Allergy Unknown Verified 05/03/19 11:55 Antibiotics) [SULFA (SULFONAMIDE ANTIBIOTICS)] dexamethasone Allergy Verified 05/03/19 11:55 vancomycin Allergy Verified 05/03/19 11:55 Exam Vital signs and Labs for Last 24 Hours: Temp Pulse Resp BP Pulse Ox 98.4 F 100 H 18 152/90 H 92 L 05/12/19 10:45 05/12/19 11:37 05/12/19 10:45 05/12/19 10:45 05/12/19 11:37 Laboratory Results - last 24 hr 05/12/19 07:15: WBC 7.3, RBC 4.00 L, Hgb 12.8 L, Hct 39.9 L, MCV 99.8 H, MCH 32.0 H, MCHC 32.1, RDW 16.1, Plt Count 168, MPV 7.5, Neut % (Auto) 79.7, Lymph % (Auto) 13.5, [place] % (Auto) 4.8, Eos % (Auto) 1.8, Baso % (Auto) 0.1, Neut # (Auto) 5.8, Lymph # (Auto) 1.0, [place] # (Auto) 0.4, Eos # (Auto) 0.1, Baso # (Auto) 0.0, ESR > 140 H 05/12/19 07:15: Sodium 136, Potassium 4.0, Chloride 99, Carbon Dioxide 27, Anion Gap 14.0, BUN 20 H, Creatinine 1.08, Estimated Creat Clear 98, Estimated GFR 69, Est GFR ( Amer) 83, Glucose 140 H, Calcium 8.8, Total Bilirubin 0.6, Direct Bilirubin 0.2, Indirect Bilirubin 0.4, AST 27, ALT 63, Alkaline Phosphatase 86, C-Reactive Protein 32.7 H D, Total Protein 7.0, Albumin 2.6 L, Lipase 73 05/12/19 07:50: Urine Color Yellow, Urine Appearance Sl cloudy, Urine pH 5.5, Ur Specific [place] >= 1.030, Urine Protein 1+, Urine Glucose (UA) Negative, Urine Ketones Negative, Urine Blood Trace-i, Urine Nitrate Negative, Urine Bilirubin Negative, Urine Urobilinogen 0.2, Ur Leukocyte Esterase Negative, Urine RBC Occasional, Urine WBC 3-5, Ur Squamous Epith Cells Occasional, Urine Bacteria 4+, Urine Mucus 2+ 05/12/19 12:22: Troponin I < 0.02 I & O for Last 24 hours: Intake & Output 05/10/19 05/11/19 05/12/19 05/13/19 11:59 11:59 11:59 11:59 Weight 219 lb 1 oz - Constitutional no acute distress Comments: At the time of this exam he is sitting upright in a wheelchair and is in no distress. He seems drowsy but does respond and will answer some questions though not always appropriately. - *Routine HEENT Exam Head: Present: normocephalic, cushingoid faces Eye: Present: PERRL ENT: Present: mucous membranes moist - *Routine Neck Exam Present: supple. Absent: tenderness - Routine Chest/Breast/Axilla Exam Chest wall: Absent: tenderness - *Routine Respiratory Exam Present: CTA bilaterally - *Routine Cardiovascular Exam Present: RRR - *Routine Abdominal Exam Present: soft, normoactive bowel sounds, distended (Slightly). Absent: tenderness - *Routine Extremities Exam Present: edema (2+ despite DINORAH stockings) - *Routine Skin Exam Present: ecchymosis (Some) - *Routine Neurological Exam No obvious focal deficits. Generalized weakness. Balance and coordination is not really tested. He does not carry on a normal conversation but can respond to some questions. Sometimes response is not appropriate. 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 - [place]'s syndrome, unspecified (5) Reflux esophagitis Current visit: Yes Status: Acute Category: Medical Code(s): K21.0 - Gastro-esophageal reflux disease with esophagitis (6) Bilateral lower extremity edema Current visit: No Status: Acute Category: Medical Code(s): R60.0 - Localized edema (7) Expressive aphasia Current visit: No Status: Acute Category: Medical Code(s): R47.01 - Aphasia (8) Gastritis Current visit: No Status: Acute Qualifiers: Gastritis type: unspecified gastritis Chronicity: acute Gastritis bleeding: without bleeding Qualified Code(s): K29.00 - Acute gastritis without bleeding Category: Medical Code(s): K29.70 - Gastritis, unspecified, without bleeding - Assessment and plan all Dx Assessment and Plan for all problems:: The plan is to manage pain, give steroids, and certainly some diuresis is in order. He has some bilateral pleural effusions as well as leg edema. If there is cerebral edema the diuresis could be beneficial from that aspect as well. We will attempt to manage gastritis/esophagitis.
--- NOTE | 2019-05-12 14:40 | Pharmacy Consult Notes ---
[facility] Pharmacy VTE Monitoring - Patient Demographics Admission date: 05/12/19 Report Date: 05/12/19 Time: 14:40 Allergies/Adverse Reactions: Patient Allergies Sulfa (Sulfonamide Antibiotics) [SULFA (SULFONAMIDE ANTIBIOTICS)] Allergy (Unknown, Verified 05/03/19 11:55) dexamethasone Allergy (Verified 05/03/19 11:55) vancomycin Allergy (Verified 05/03/19 11:55) Height: 1.78 m Weight: 99.365 kg Patient Problems: Current Active Problems (Updated 05/12/19 @ 09:41 by Ivette Krause MD) Upper abdominal pain (Acute) Reflux esophagitis (Acute) Chronic steroid use (Acute) Glioblastoma multiforme of central nervous system (Acute) Cushingoid side effect of steroids (Acute) Full code status (Acute) - VTE Risk Labs: VTE Related Lab Results Hgb 12.8 g/dL (14.1-18.0) L 05/12/19 07:15 Hct 39.9 % (42.0-52.0) L 05/12/19 07:15 Plt Count 168 K/mm3 (142-424) 05/12/19 07:15 BUN 20 mg/dL (7-18) H 05/12/19 07:15 Creatinine 1.08 mg/dL (0.70-1.30) 05/12/19 07:15 Estimated Creat Clear 98 mL/min (50-200) 05/12/19 07:15 VTE Score: 5 VTE Risk Level: Low Risk - Prophylaxis VTE Prophylaxis Ordered?: Yes Types of VTE Prophylaxis: TEDS Knee High Location of Applied Device: Bilateral Lower Extremeties - VTE Diagnosis Confirmed Treatment or plan recommended: Continue Current Treatment
--- NOTE | 2019-05-13 13:04 | Progress Note ---
Internal Medicine - PN: Subj *Date: 05/13/19 *Time: 13:00 Interval history: He seems a little more responsive today but basically sits with his head down. He is not in respiratory distress. He does frequently clear his throat. His weight is down a bit after receiving Lasix yesterday. Exam Vital signs and Labs for Last 24 Hours: Temp Pulse Resp BP Pulse Ox 98.4 F 108 H 20 130/94 H 91 L 05/13/19 08:00 05/13/19 08:05 05/13/19 08:00 05/13/19 08:00 05/13/19 08:05 Laboratory Results - last 24 hr 05/12/19 07:50: Urine Color Yellow, Urine Appearance Sl cloudy, Urine pH 5.5, Ur Specific [place] >= 1.030, Urine Protein 1+, Urine Glucose (UA) Negative, Urine Ketones Negative, Urine Blood Trace-i, Urine Nitrate Negative, Urine Bilirubin Negative, Urine Urobilinogen 0.2, Ur Leukocyte Esterase Negative, Urine RBC Occasional, Urine WBC 3-5, Ur Squamous Epith Cells Occasional, Urine Bacteria 4+, Urine Mucus 2+ 05/12/19 18:30: Troponin I < 0.02 Weight is recorded as 213 today, down from 119 or 120 depending on which admission weight you believe I & O for Last 24 hours: Intake & Output 05/11/19 05/12/19 05/13/19 05/14/19 11:59 11:59 11:59 11:59 Intake Total 640 / 640 Output Total 150 / 150 Balance 490 / 490 Weight 219 lb 1 oz 213 lb 8 oz Microbiology Reports for the Last 24 Hours: Microbiology 05/12/19 07:50 Urine,Clean Catch Urine Culture - Preliminary Gram Positive Cocci - Constitutional no acute distress - *Routine HEENT Exam Head: Present: cushingoid faces Eye: Present: PERRL ENT: Present: mucous membranes moist - *Routine Respiratory Exam Comments: Some bibasilar rhonchi are heard, more prominent on the right than the left. - *Routine Cardiovascular Exam Present: RRR - *Routine Abdominal Exam Present: soft. Absent: tenderness - *Routine Extremities Exam Present: edema (At least 2+) - *Routine Neurological Exam He seems a bit more responsive today. 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 - [place]'s syndrome, unspecified (5) Reflux esophagitis Current visit: Yes Status: Acute Category: Medical Code(s): K21.0 - Gastro-esophageal reflux disease with esophagitis (6) Bilateral lower extremity edema Current visit: No Status: Acute Category: Medical Code(s): R60.0 - Localized edema (7) Expressive aphasia Current visit: No Status: Acute Category: Medical Code(s): R47.01 - Aphasia (8) Gastritis Current visit: No Status: Acute Qualifiers: Gastritis type: unspecified gastritis Chronicity: acute Gastritis bleeding: without bleeding Qualified Code(s): K29.00 - Acute gastritis without bleeding Category: Medical Code(s): K29.70 - Gastritis, unspecified, without bleeding - Assessment and plan all Dx Assessment and Plan for all problems:: His is concerned about no bowel movement. Will give Dulcolax suppository today. Continue with some diuresis. We did discuss some plans for discharge. She seems to understand that hospice might be helpful at this point. He is supposed to travel to [place] again at the end of May but his is not certain he will be able to make this trip even.
[2019-05-13 13:44] LABS: Calcium 8.8 mg/dL (8.5-10.1)
[2019-05-14 06:07] LABS: Anion Gap 15.1 mEq/L (5-15); Calcium 9.5 mg/dL (8.5-10.1)
[2019-05-14 08:19] LABS: Basophils % 0.1 % (0.1-2.0); Eosinophils % 0.3 % (0.1-12.0); Hematocrit 40.6 % (42.0-52.0); Hemoglobin 12.6 g/dL (14.1-18.0); Lymphocytes # 1.1 K/mm3 (0.7-4.5); Mean Corpuscular HGB Conc 31.1 g/dL (31.8-35.4); Mean Corpuscular Volume 100.1 fl (80-94); Mean Platelet Volume 8.3 fl (7.4-10.4); Monocytes # 0.6 K/mm3 (0.1-1.0); Monocytes % 5.4 % (1.7-9.3); Neutrophils # 9.4 K/mm3 (1.8-7.8); Neutrophils % 84.2 % (37.0-80.0); Platelet Count 245 K/mm3 (142-424); Red Blood Count 4.05 M/mm3 (4.60-6.20); Red Cell Distribution Width 15.9 % (11.5-17.5); White Blood Count 11.2 K/mm3 (4.8-10.8)
--- NOTE | 2019-05-14 08:33 | Progress Note ---
<Enedelia Jefferson - Last Filed: 05/14/19 08:29> Internal Medicine - PN: Subj *Date: 05/14/19 *Time: 08:29 Interval history: Family is at bedside. Daughter states throughout the night and states that patient slept well. He has been taking clear to full liquids without di fficulty. He does have a dry periodic cough. Denies pain and shortness of breath. Bowels have not moved. He is voiding in the urinal. is concerned about disposition. She is considering short-term stay at [facility]. Exam Vital signs and Labs for Last 24 Hours: Temp Pulse Resp BP Pulse Ox 97.8 F 93 H 24 118/76 86 L 05/14/19 08:00 05/14/19 08:00 05/14/19 08:00 05/14/19 08:00 05/14/19 08:00 Laboratory Results - last 24 hr 05/12/19 07:50: Urine Color Yellow, Urine Appearance Sl cloudy, Urine pH 5.5, Ur Specific [place] >= 1.030, Urine Protein 1+, Urine Glucose (UA) Negative, Urine Ketones Negative, Urine Blood Trace-i, Urine Nitrate Negative, Urine Bilirubin Negative, Urine Urobilinogen 0.2, Ur Leukocyte Esterase Negative, Urine RBC Occasional, Urine WBC 3-5, Ur Squamous Epith Cells Occasional, Urine Bacteria 4+, Urine Mucus 2+ 05/13/19 13:15: Sodium 136, Potassium 4.0, Chloride 99, Carbon Dioxide 27, Anion Gap 14.0, BUN 19 H, Creatinine 1.08, Estimated Creat Clear 95, Estimated GFR 69, Est GFR ( Amer) 83, Glucose 132 H, Calcium 8.8 05/14/19 05:44: Sodium 139, Potassium 4.1, Chloride 99, Carbon Dioxide 29, Anion Gap 15.1 H, BUN 20 H, Creatinine 1.27, Estimated Creat Clear 81, Estimated GFR 57 L, Est GFR ( Amer) 69, Glucose 139 H, Calcium 9.5 05/14/19 05:44: WBC 11.2 H D, RBC 4.05 L, Hgb 12.6 L, Hct 40.6 L, MCV 100.1 H, MCH 31.1, MCHC 31.1 L, RDW 15.9, Plt Count 245 D, MPV 8.3, Neut % (Auto) 84.2 H , Lymph % (Auto) 10.0, [place] % (Auto) 5.4, Eos % (Auto) 0.3, Baso % (Auto) 0.1, Neut # (Auto) 9.4 H, Lymph # (Auto) 1.1, [place] # (Auto) 0.6, Eos # (Auto) 0.0, Baso # (Auto) 0.0 I & O for Last 24 hours: Intake & Output 05/11/19 05/12/19 05/13/19 05/14/19 11:59 11:59 11:59 11:59 Intake Total 640 / 640 337 / 337 Output Total 150 / 150 1250 / 1250 Balance 490 / 490 -913 / -913 Weight 219 lb 1 oz 213 lb 8 oz 214 lb Microbiology Reports for the Last 24 Hours: Microbiology 05/12/19 07:50 Urine,Clean Catch Urine Culture - Final Staphylococcus haemolyticus - Constitutional no acute distress Comments: Sleeping in recliner. Awakens easily for exam. - *Routine Respiratory Exam Comments: Bibasilar crackles. Frequent dry cough. - *Routine Cardiovascular Exam Present: RRR - *Routine Abdominal Exam Present: normoactive bowel sounds, tenderness (Mild generalized), distended - *Routine Extremities Exam Absent: edema - *Routine Neurological Exam Present: alert Speech is slow. Does answer some questions appropriately 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 - [place]'s syndrome, unspecified (5) Reflux esophagitis Current visit: Yes Status: Acute Category: Medical Code(s): K21.0 - Gastro-esophageal reflux disease with esophagitis (6) Bilateral lower extremity edema Current visit: No Status: Acute Category: Medical Code(s): R60.0 - Localized edema (7) Expressive aphasia Current visit: No Status: Acute Category: Medical Code(s): R47.01 - Aphasia (8) Gastritis Current visit: No Status: Acute Qualifiers: Gastritis type: unspecified gastritis Chronicity: acute Gastritis bleeding: without bleeding Qualified Code(s): K29.00 - Acute gastritis without bleeding Category: Medical Code(s): K29.70 - Gastritis, unspecified, without bleeding (9) Urinary tract infection Current visit: Yes Status: Acute Category: Medical Code(s): N39.0 - Urinary tract infection, site not specified (10) Pneumonia Current visit: No Status: Acute Category: Medical Code(s): J18.9 - Pneumonia, unspecified organism (11) Constipation Current visit: Yes Status: Acute Category: Medical Code(s): K59.00 - Constipation, unspecified - Assessment and plan all Dx Assessment and Plan for all problems:: We will start clindamycin and Zithromax for pneumonia and UTI from staph hemolyticus. Will give Dulcolax suppository. Also will start duo nebs. Care management to discuss disposition with patient. <Jered Tavares - Last Filed: 05/14/19 09:02> Internal Medicine - PN: Subj *Date: 05/14/19 *Time: 09:01 Exam Vital signs and Labs for Last 24 Hours: Temp Pulse Resp BP Pulse Ox 97.8 F 93 H 24 118/76 86 L 05/14/19 08:00 05/14/19 08:00 05/14/19 08:00 05/14/19 08:00 05/14/19 08:00 Laboratory Results - last 24 hr 05/12/19 07:50: Urine Color Yellow, Urine Appearance Sl cloudy, Urine pH 5.5, Ur Specific [place] >= 1.030, Urine Protein 1+, Urine Glucose (UA) Negative, Urine Ketones Negative, Urine Blood Trace-i, Urine Nitrate Negative, Urine Bilirubin Negative, Urine Urobilinogen 0.2, Ur Leukocyte Esterase Negative, Urine RBC Occasional, Urine WBC 3-5, Ur Squamous Epith Cells Occasional, Urine Bacteria 4+, Urine Mucus 2+ 05/13/19 13:15: Sodium 136, Potassium 4.0, Chloride 99, Carbon Dioxide 27, Anion Gap 14.0, BUN 19 H, Creatinine 1.08, Estimated Creat Clear 95, Estimated GFR 69, Est GFR ( Amer) 83, Glucose 132 H, Calcium 8.8 05/14/19 05:44: Sodium 139, Potassium 4.1, Chloride 99, Carbon Dioxide 29, Anion Gap 15.1 H, BUN 20 H, Creatinine 1.27, Estimated Creat Clear 81, Estimated GFR 57 L, Est GFR ( Amer) 69, Glucose 139 H, Calcium 9.5 05/14/19 05:44: WBC 11.2 H D, RBC 4.05 L, Hgb 12.6 L, Hct 40.6 L, MCV 100.1 H, MCH 31.1, MCHC 31.1 L, RDW 15.9, Plt Count 245 D, MPV 8.3, Neut % (Auto) 84.2 H , Lymph % (Auto) 10.0, [place] % (Auto) 5.4, Eos % (Auto) 0.3, Baso % (Auto) 0.1, Neut # (Auto) 9.4 H, Lymph # (Auto) 1.1, [place] # (Auto) 0.6, Eos # (Auto) 0.0, Baso # (Auto) 0.0 I & O for Last 24 hours: Intake & Output 05/11/19 05/12/19 05/13/19 05/14/19 23:59 23:59 23:59 23:59 Intake Total 540 / 540 437 / 437 120 / 120 Output Total 1400 / 1400 Balance 540 / 490 -963 / -963 120 / 120 Weight 219 lb 1 oz 213 lb 8 oz 214 lb Microbiology Reports for the Last 24 Hours: Microbiology 05/12/19 07:50 Urine,Clean Catch Urine Culture - Final Staphylococcus haemolyticus 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 - Ang's syndrome, unspecified (5) Reflux esophagitis Current visit: Yes Status: Acute Category: Medical Code(s): K21.0 - Gastro-esophageal reflux disease with esophagitis (6) Bilateral lower extremity edema Current visit: No Status: Acute Category: Medical Code(s): R60.0 - Localized edema (7) Expressive aphasia Current visit: No Status: Acute Category: Medical Code(s): R47.01 - Aphasia (8) Gastritis Current visit: No Status: Acute Qualifiers: Gastritis type: unspecified gastritis Chronicity: acute Gastritis bleeding: without bleeding Qualified Code(s): K29.00 - Acute gastritis without bleeding Category: Medical Code(s): K29.70 - Gastritis, unspecified, without bleeding (9) Urinary tract infection Current visit: Yes Status: Acute Category: Medical Code(s): N39.0 - Urinary tract infection, site not specified (10) Pneumonia Current visit: No Status: Acute Category: Medical Code(s): J18.9 - Pneumonia, unspecified organism (11) Constipation Current visit: Yes Status: Acute Category: Medical Code(s): K59.00 - Constipation, unspecified - Assessment and plan all Dx Assessment and Plan for all problems:: Saw patient, agree with above note, start antibiotics today, discontinue protonix drip.
--- NOTE | 2019-05-15 08:02 | Progress Note ---
<Enedelia Jefferson - Last Filed: 05/15/19 08:27> Internal Medicine - PN: Subj *Date: 05/15/19 *Time: 08:27 Interval history: Per : Patient seen better last p.m. She could tell a difference in his strength. He was placed on regular food and is eating satisfactory. Bowels did move. He is voiding without difficulty. He states he is sometimes short of breath and continues to have coughing spasms. Some sputum production. He requires assist with ambulation Exam Vital signs and Labs for Last 24 Hours: Temp Pulse Resp BP Pulse Ox 98.9 F 102 H 18 150/92 H 91 L 05/15/19 07:50 05/15/19 07:50 05/15/19 07:50 05/15/19 07:50 05/15/19 07:50 Laboratory Results - last 24 hr 05/14/19 05:44: WBC 11.2 H D, RBC 4.05 L, Hgb 12.6 L, Hct 40.6 L, MCV 100.1 H, MCH 31.1, MCHC 31.1 L, RDW 15.9, Plt Count 245 D, MPV 8.3, Neut % (Auto) 84.2 H , Lymph % (Auto) 10.0, Lyman % (Auto) 5.4, Eos % (Auto) 0.3, Baso % (Auto) 0.1, Neut # (Auto) 9.4 H, Lymph # (Auto) 1.1, Lyman # (Auto) 0.6, Eos # (Auto) 0.0, Baso # (Auto) 0.0 I & O for Last 24 hours: Intake & Output 05/12/19 05/13/19 05/14/19 05/15/19 11:59 11:59 11:59 11:59 Intake Total 640 / 640 457 / 457 1650 / 1650 Output Total 150 / 150 1250 / 1250 500 / 500 Balance 490 / 490 -793 / -793 1150 / 1150 Weight 219 lb 1 oz 213 lb 8 oz 214 lb 217 lb 7 oz Microbiology Reports for the Last 24 Hours: Microbiology 05/14/19 21:30 Sputum - Expectorated Sputum Gram Stain - Final 05/14/19 20:00 Sputum - Expectorated Sputum Gram Stain - Final 06/29/19 07:50 Urine,Clean Catch Urine Culture - Final Staphylococcus haemolyticus - Constitutional no acute distress Comments: Sitting up in the bed eating his breakfast. He is feeding himself. - *Routine Respiratory Exam Comments: Few bibasilar crackles - *Routine Cardiovascular Exam Present: RRR - *Routine Abdominal Exam Present: soft, normoactive bowel sounds. Absent: tenderness - *Routine Extremities Exam Present: edema, pulses intact - *Routine Neurological Exam Present: alert Speech is slow and words hard to come by. 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 - Hatfield's syndrome, unspecified (5) Reflux esophagitis Current visit: Yes Status: Acute Category: Medical Code(s): K21.0 - Gastro-esophageal reflux disease with esophagitis (6) Bilateral lower extremity edema Current visit: No Status: Acute Category: Medical Code(s): R60.0 - Localized edema (7) Expressive aphasia Current visit: No Status: Acute Category: Medical Code(s): R47.01 - Aphasia (8) Gastritis Current visit: No Status: Acute Qualifiers: Gastritis type: unspecified gastritis Chronicity: acute Gastritis bleeding: without bleeding Qualified Code(s): K29.00 - Acute gastritis without bleeding Category: Medical Code(s): K29.70 - Gastritis, unspecified, without bleeding (9) Urinary tract infection Current visit: Yes Status: Acute Category: Medical Code(s): N39.0 - Urinary tract infection, site not specified (10) Pneumonia Current visit: No Status: Acute Category: Medical Code(s): J18.9 - Pneumonia, unspecified organism (11) Constipation Current visit: Yes Status: Acute Category: Medical Code(s): K59.00 - Constipation, unspecified - Assessment and plan all Dx Assessment and Plan for all problems:: We will continue with current care. <Jered Tavares - Last Filed: 05/15/19 08:31> Internal Medicine - PN: Subj *Date: 05/15/19 *Time: 08:29 Exam Vital signs and Labs for Last 24 Hours: Temp Pulse Resp BP Pulse Ox 98.9 F 102 H 18 150/92 H 91 L 05/15/19 07:50 05/15/19 07:50 05/15/19 07:50 05/15/19 07:50 05/15/19 07:50 I & O for Last 24 hours: Intake & Output 05/12/19 05/13/19 05/14/19 05/15/19 23:59 23:59 23:59 23:59 Intake Total 540 / 540 437 / 437 1410 / 1410 360 / 360 Output Total 1400 / 1400 500 / 500 Balance 540 / 490 -963 / -963 910 / 910 360 / 360 Weight 219 lb 1 oz 213 lb 8 oz 214 lb 0.008 oz 217 lb 7 oz Microbiology Reports for the Last 24 Hours: Microbiology 05/14/19 21:30 Sputum - Expectorated Sputum Gram Stain - Final 05/14/19 20:00 Sputum - Expectorated Sputum Gram Stain - Final 05/12/19 07:50 Urine,Clean Catch Urine Culture - Final Staphylococcus haemolyticus 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 - Ang's syndrome, unspecified (5) Reflux esophagitis Current visit: Yes Status: Acute Category: Medical Code(s): K21.0 - Gastro-esophageal reflux disease with esophagitis (6) Bilateral lower extremity edema Current visit: No Status: Acute Category: Medical Code(s): R60.0 - Localized edema (7) Expressive aphasia Current visit: No Status: Acute Category: Medical Code(s): R47.01 - Aphasia (8) Gastritis Current visit: No Status: Acute Qualifiers: Gastritis type: unspecified gastritis Chronicity: acute Gastritis bleeding: without bleeding Qualified Code(s): K29.00 - Acute gastritis without bleeding Category: Medical Code(s): K29.70 - Gastritis, unspecified, without bleeding (9) Urinary tract infection Problem details: due to staph haemolyticus Current visit: Yes Status: Acute Category: Medical Code(s): N39.0 - Urinary tract infection, site not specified (10) Pneumonia Current visit: No Status: Acute Category: Medical Code(s): J18.9 - Pneumonia, unspecified organism (11) Constipation Current visit: Yes Status: Acute Category: Medical Code(s): K59.00 - Constipation, unspecified - Assessment and plan all Dx Assessment and Plan for all problems:: Saw patient, agree with above note. He has improved, continue current treatment.
[2019-05-16 08:01] LABS: Anion Gap 10.5 mEq/L (5-15)
[2019-05-16 08:20] LABS: Basophils % 0.1 % (0.1-2.0); Eosinophils # 0.1 K/mm3 (0.0-0.4); Eosinophils % 0.8 % (0.1-12.0); Hematocrit 32.8 % (42.0-52.0); Hemoglobin 10.3 g/dL (14.1-18.0); Lymphocytes # 1.3 K/mm3 (0.7-4.5); Lymphocytes % 15.6 % (10-50); Mean Corpuscular HGB Conc 31.5 g/dL (31.8-35.4); Mean Corpuscular Volume 99.3 fl (80-94); Mean Platelet Volume 7.8 fl (7.4-10.4); Monocytes # 0.5 K/mm3 (0.1-1.0); Neutrophils # 6.2 K/mm3 (1.8-7.8); Neutrophils % 77.5 % (37.0-80.0); Platelet Count 212 K/mm3 (142-424); Red Cell Distribution Width 16.2 % (11.5-17.5)
--- NOTE | 2019-05-16 08:21 | Progress Note ---
<Mireya Shore - Last Filed: 05/16/19 08:17> Internal Medicine - PN: Subj *Date: 05/16/19 *Time: 08:18 Interval history: Patient states he is feeling well this morning. His states he seems to be doing better. He had a good night last night and slept well. He is eating his breakfast this morning with no abdominal pain. Exam Vital signs and Labs for Last 24 Hours: Temp Pulse Resp BP Pulse Ox 98.6 F 90 18 155/90 H 91 L 05/16/19 08:00 05/16/19 08:00 05/16/19 08:00 05/16/19 08:00 05/16/19 08:00 Laboratory Results - last 24 hr 05/16/19 06:12: Sodium 145, Potassium 3.5, Chloride 109 H, Carbon Dioxide 29, Anion Gap 10.5, BUN 22 H, Creatinine 1.04, Estimated Creat Clear 101, Estimated GFR 72, Est GFR ( Amer) 87 D, Glucose 127 H I & O for Last 24 hours: Intake & Output 05/13/19 05/14/19 05/15/19 05/16/19 11:59 11:59 11:59 11:59 Intake Total 640 / 640 457 / 457 1650 / 1650 1280 / 1280 Output Total 150 / 150 1250 / 1250 500 / 500 Balance 490 / 490 -793 / -793 1150 / 1150 1280 / 1280 Weight 213 lb 8 oz 214 lb 217 lb 7 oz 219 lb 4 oz - Constitutional no acute distress - *Routine Respiratory Exam Present: CTA bilaterally - *Routine Cardiovascular Exam Present: RRR - *Routine Abdominal Exam Present: soft, normoactive bowel sounds. Absent: tenderness - *Routine Extremities Exam Absent: cyanosis, clubbing, edema - *Routine Skin Exam Present: warm. 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 - Occidental's syndrome, unspecified (5) Reflux esophagitis Current visit: Yes Status: Acute Category: Medical Code(s): K21.0 - Gastro-esophageal reflux disease with esophagitis (6) Bilateral lower extremity edema Current visit: No Status: Acute Category: Medical Code(s): R60.0 - Localized edema (7) Expressive aphasia Current visit: No Status: Acute Category: Medical Code(s): R47.01 - Aphasia (8) Gastritis Current visit: No Status: Acute Qualifiers: Gastritis type: unspecified gastritis Chronicity: acute Gastritis bleeding: without bleeding Qualified Code(s): K29.00 - Acute gastritis without bleeding Category: Medical Code(s): K29.70 - Gastritis, unspecified, without bleeding (9) Urinary tract infection Problem details: due to staph haemolyticus Current visit: Yes Status: Acute Category: Medical Code(s): N39.0 - Urinary tract infection, site not specified (10) Pneumonia Current visit: No Status: Acute Category: Medical Code(s): J18.9 - Pneumonia, unspecified organism (11) Constipation Current visit: Yes Status: Acute Category: Medical Code(s): K59.00 - Constipation, unspecified - Assessment and plan all Dx Assessment and Plan for all problems:: Patient is improving. Will discuss further care with Dr. Tavares. <Jered Tavares - Last Filed: 05/16/19 08:27> Internal Medicine - PN: Subj *Date: 05/16/19 *Time: 08:26 Exam Vital signs and Labs for Last 24 Hours: Temp Pulse Resp BP Pulse Ox 98.6 F 90 18 155/90 H 91 L 05/16/19 08:00 05/16/19 08:00 05/16/19 08:00 05/16/19 08:00 05/16/19 08:00 Laboratory Results - last 24 hr 05/16/19 06:12: WBC 8.0 D, RBC 3.30 L, Hgb 10.3 L, Hct 32.8 L, MCV 99.3 H, MCH 31.2, MCHC 31.5 L, RDW 16.2, Plt Count 212, MPV 7.8, Neut % (Auto) 77.5, Lymph % (Auto) 15.6, Stone % (Auto) 6.0, Eos % (Auto) 0.8, Baso % (Auto) 0.1, Neut # (Auto) 6.2, Lymph # (Auto) 1.3, Stone # (Auto) 0.5, Eos # (Auto) 0.1, Baso # (Au to) 0.0 05/16/19 06:12: Sodium 145, Potassium 3.5, Chloride 109 H, Carbon Dioxide 29, Anion Gap 10.5, BUN 22 H, Creatinine 1.04, Estimated Creat Clear 101, Estimated GFR 72, Est GFR ( Amer) 87 D, Glucose 127 H I & O for Last 24 hours: Intake & Output 05/13/19 05/14/19 05/15/19 05/16/19 23:59 23:59 23:59 23:59 Intake Total 437 / 437 1410 / 1410 960 / 960 680 / 680 Output Total 1400 / 1400 500 / 500 Balance -963 / -963 910 / 910 960 / 960 680 / 680 Weight 213 lb 8 oz 214 lb 0.008 oz 217 lb 7 oz 219 lb 4 oz 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 - Ang's syndrome, unspecified (5) Reflux esophagitis Current visit: Yes Status: Acute Category: Medical Code(s): K21.0 - Gastro-esophageal reflux disease with esophagitis (6) Bilateral lower extremity edema Current visit: No Status: Acute Category: Medical Code(s): R60.0 - Localized edema (7) Expressive aphasia Current visit: No Status: Acute Category: Medical Code(s): R47.01 - Aphasia (8) Gastritis Current visit: No Status: Acute Qualifiers: Gastritis type: unspecified gastritis Chronicity: acute Gastritis bleeding: without bleeding Qualified Code(s): K29.00 - Acute gastritis without bleeding Category: Medical Code(s): K29.70 - Gastritis, unspecified, without bleeding (9) Urinary tract infection Problem details: due to staph haemolyticus Current visit: Yes Status: Acute Category: Medical Code(s): N39.0 - Urinary tract infection, site not specified (10) Pneumonia Current visit: No Status: Acute Category: Medical Code(s): J18.9 - Pneumonia, unspecified organism (11) Constipation Current visit: Yes Status: Acute Category: Medical Code(s): K59.00 - Constipation, unspecified - Assessment and plan all Dx Assessment and Plan for all problems:: Saw patient, agree with above note. He has improved, repeat CXR today.
[2019-05-16 08:31] LABS: Calcium 8.2 mg/dL (8.5-10.1)
--- NOTE | 2019-05-17 11:16 | Progress Note ---
Internal Medicine - PN: Subj *Date: 05/17/19 *Time: 11:16 Exam Vital signs and Labs for Last 24 Hours: Temp Pulse Resp BP Pulse Ox 98.0 F 90 17 158/93 H 92 L 05/17/19 08:00 05/17/19 09:47 05/17/19 08:00 05/17/19 08:00 05/17/19 08:00 I & O for Last 24 hours: Intake & Output 05/14/19 05/15/19 05/16/19 05/17/19 23:59 23:59 23:59 23:59 Intake Total 1410 / 1410 960 / 960 1520 / 1520 560 / 560 Output Total 500 / 500 Balance 910 / 910 960 / 960 1520 / 1520 560 / 560 Weight 97.069 kg 98.628 kg 99.45 kg 100.896 kg Microbiology Reports for the Last 24 Hours: Microbiology 05/14/19 21:30 Sputum - Expectorated Sputum Gram Stain - Final 05/14/19 21:30 Sputum - Expectorated Sputum Sputum Culture - Preliminary 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 - Ang's syndrome, unspecified (5) Reflux esophagitis Current visit: Yes Status: Acute Category: Medical Code(s): K21.0 - Gastro-esophageal reflux disease with esophagitis (6) Bilateral lower extremity edema Current visit: No Status: Acute Category: Medical Code(s): R60.0 - Localized edema (7) Expressive aphasia Current visit: No Status: Acute Category: Medical Code(s): R47.01 - Aphasia (8) Gastritis Current visit: No Status: Acute Qualifiers: Gastritis type: unspecified gastritis Chronicity: acute Gastritis bl eeding: without bleeding Qualified Code(s): K29.00 - Acute gastritis without bleeding Category: Medical Code(s): K29.70 - Gastritis, unspecified, without bleeding (9) Urinary tract infection Problem details: due to staph haemolyticus Current visit: Yes Status: Acute Category: Medical Code(s): N39.0 - Urinary tract infection, site not specified (10) Pneumonia Current visit: No Status: Acute Category: Medical Code(s): J18.9 - Pneum onia, unspecified organism (11) Constipation Current visit: Yes Status: Acute Category: Medical Code(s): K59.00 - Constipation, unspecified The patient's infection will respond to the chosen ABx?: Yes Is the patient receiving the right drug, dose, and route?: Yes Could a more targeted ABx be ordered?: No (CULTURE SENSITIVE TO CLINDAMYCIN)
--- NOTE | 2019-05-17 11:41 | Progress Note ---
Internal Medicine - PN: Subj *Date: 05/17/19 *Time: 11:38 Interval history: He is better. He seems more alert. He still does not follow commands very well, his mentation is not normal. Exam Vital signs and Labs for Last 24 Hours: Temp Pulse Resp BP Pulse Ox 98.0 F 90 17 158/93 H 92 L 05/17/19 08:00 05/17/19 09:47 05/17/19 08:00 05/17/19 08:00 05/17/19 08:00 I & O for Last 24 hours: Intake & Output 05/14/19 05/15/19 05/16/19 05/17/19 11:59 11:59 11:59 11:59 Intake Total 457 / 457 1650 / 1650 1280 / 1280 1400 / 1400 Output Total 1250 / 1250 500 / 500 Balance -793 / -793 1150 / 1150 1280 / 1280 1400 / 1400 Weight 214 lb 217 lb 7 oz 219 lb 4 oz 222 lb 7 oz Microbiology Reports for the Last 24 Hours: Microbiology 05/14/19 21:30 Sputum - Expectorated Sputum Gram Stain - Final 05/14/19 21:30 Sputum - Expectorated Sputum Sputum Culture - Preliminary - Constitutional no acute distress - *Routine HEENT Exam Head: Present: cushingoid faces Eye: Present: PERRL ENT: Present: mucous membranes moist - *Routine Respiratory Exam Present: decreased breath sounds (I suspect he still has significant pleural effusions.) - *Routine Cardiovascular Exam Present: RRR - *Routine Abdominal Exam Present: soft. Absent: tenderness - *Routine Extremities Exam Present: edema (Trace. Definitely improved.) - *Routine Neurological Exam As stated previously. He is more alert but has difficulty following conversation or answering questions or following commands. Assessment and Plan (1) Glioblastoma multiforme of central nervous system Current visit: Yes Status: Acute Category: Medical Code(s): C72.9 - Malignant neoplasm of central nervous system, unspecified (2) Upper abdominal pain Current visit: Yes Status: Acute Category: Medical Code(s): R10.10 - Upper abdominal pain, unspecified (3) Chronic steroid use Current visit: Yes Status: Acute Category: Medical (4) Cushingoid side effect of steroids Current visit: Yes Status: Acute Category: Medical Code(s): E24.9 - Cushin g's syndrome, unspecified (5) Reflux esophagitis Current visit: Yes Status: Acute Category: Medical Code(s): K21.0 - Gastro-esophageal reflux disease with esophagitis (6) Bilateral lower extremity edema Current visit: No Status: Acute Category: Medical Code(s): R60.0 - Localized edema (7) Expressive aphasia Current visit: No Status: Acute Category: Medical Code(s): R47.01 - Aphasia (8) Gastritis Current visit: No Status: Acute Qualifiers: Gastritis type: unspecified gastritis Chronicity: acute Gastritis bleeding: without bleeding Qualified Code(s): K29.00 - Acute gastritis without bleeding Category: Medical Code(s): K29.70 - Gastritis, unspecified, without bleeding (9) Urinary tract infection Problem details: due to staph haemolyticus Current visit: Yes Status: Acute Category: Medical Code(s): N39.0 - Urinary tract infection, site not specified (10) Pneumonia Current visit: No Status: Acute Category: Medical Code(s): J18.9 - Pneumonia, unspecified organism (11) Constipation Current visit: Yes Status: Acute Category: Medical Code(s): K59.00 - Constipation, unspecified - Assessment and plan all Dx Assessment and Plan for all problems:: Hospice is involved now. Disposition to home is to be determined.
--- NOTE | 2019-05-18 08:41 | Progress Note ---
Internal Medicine - PN: Subj *Date: 05/18/19 *Time: 10:27 Interval history: Patient is feeling better today. He is still confused at times. He slept well throughout the night and ate a good breakfast this morning. His family is concerned because his blood pressure has been slightly elevated. Exam Vital signs and Labs for Last 24 Hours: Temp Pulse Resp BP Pulse Ox 98.3 F 96 H 18 140/90 92 L 05/18/19 07:53 05/18/19 07:53 05/18/19 07:53 05/18/19 07:53 05/18/19 07:53 I & O for Last 24 hours: Intake & Output 05/15/19 05/16/19 05/17/19 05/18/19 11:59 11:59 11:59 11:59 Intake Total 1650 / 1650 1280 / 1280 1400 / 1400 1397 / 1397 Output Total 500 / 500 Balance 1150 / 1150 1280 / 1280 1400 / 1400 1397 / 1397 Weight 217 lb 7 oz 219 lb 4 oz 222 lb 7 oz 226 lb 6 oz Microbiology Reports for the Last 24 Hours: Microbiology 05/14/19 21:30 Sputum - Expectorated Sputum Gram Stain - Final 05/14/19 21:30 Sputum - Expectorated Sputum Sputum Culture - Preliminary - Constitutional no acute distress - *Routine Respiratory Exam Present: CTA bilaterally - *Routine Cardiovascular Exam Present: RRR - *Routine Abdominal Exam Present: soft, normoactive bowel sounds. Absent: tenderness - *Routine Extremities Exam Absent: cyanosis, clubbing, edema Assessment and Plan (1) Glioblastoma multiforme of central nervous system Current visit: Yes Status: Acute Category: Medical Code(s): C72.9 - Malignant neoplasm of central nervous system, unspecified (2) Upper abdominal pain Current visit: Yes Status: Acute Category: Medical Code(s): R10.10 - Upper abdominal pain, unspecified (3) Chronic steroid use Current visit: Yes Status: Acute Category: Medical (4) Cushingoid side effect of steroids Current visit: Yes Status: Acute Category: Medical Code(s): E24.9 - Albertson's syndrome, unspecified (5) Reflux esophagitis Current visit: Yes Status: Acute Category: Medical Code(s): K21.0 - Gastro-esophageal reflux disease with esophagitis (6) Bilateral lower extremity edema Current visit: No Status: Acute Category: Medical Code(s): R60.0 - Localized edema (7) Expressive aphasia Current visit: No Status: Acute Category: Medical Code(s): R47.01 - Aphasia (8) Gastritis Current visit: No Status: Acute Qualifiers: Gastritis type: unspecified gastritis Chronicity: acute Gastritis bleeding: without bleeding Qualified Code(s): K29.00 - Acute gastritis without bleeding Category: Medical Code(s): K29.70 - Gastritis, unspecified, without bleeding (9) Urinary tract infection Problem details: due to staph haemolyticus Current visit: Yes Status: Acute Category: Medical Code(s): N39.0 - Urinary tract infection, site not specified (10) Pneumonia Current visit: No Status: Acute Category: Medical Code(s): J18.9 - Pneumonia, unspecified organism (11) Constipation Current visit: Yes Status: Acute Category: Medical Code(s): K59.00 - Constipation, unspecified - Assessment and plan all Dx Assessment and Plan for all problems:: Possible discharge home today with hospice. The patient's daughter is a nurse and can check his blood pressure daily as well as his PICC line.
[2019-05-18 12:11] VITALS: BP 138/91
--- NOTE | 2019-05-22 14:01 | Discharge Summary ---
General - General Admission date:: 05/12/19 Discharge date: 05/18/19 HPI HPI: This 63-year-old white male was diagnosed with glioblastoma multiforme April 2018. His lesion is of the temporal and parietal lobe. He has been treated at the [facility] and at [facility]. He was seen on May [address] Tavares with complaints of low back pain for approximately 1 day. He also had abdominal pain. In fact it was hard to localize where the patient was actually uncomfortable. His has been concerned about constipation. He has had some diarrhea with chemo treatments. He has a history of renal stones as well. His recent CT scan showed an intrarenal stone but no active passage of stone. There was a calcified area seen in the bladder. His recent CT did not show evidence of significant constipation. The family reports that when he tries to lie back he has a lot of discomfort in his back and chest region and he will cough and bring up bloody mucus. According to his recent medication list he receives a Avastin 25 mg/mL intra venously every 2 weeks as well as irinotecan 20 mg/mL every 2 weeks IV. Recently he has been receiving dexamethasone concentrate 4 mg in the morning and 2 mg in the afternoon. The ER physician raised the possibility that patient may be having gastritis and that the dexamethasone might be complicating this. The patient was admitted from the emergency room for further evaluation and for pain control. Hospital Course Hospital Course: The patient had a chest x-ray which showed mild cardiomegaly without failure. There were bilateral pleural effusions along with a left lower lobe pneumonia. There was also a mild colonic ileus. The patient was started on pain management, steroids, and diuresis. His weight decreased after receiving some Lasix. He received a Dulcolax suppository for constipation. He began eating and drinking. His urine culture did return positive for Staphylococcus hemolyticus. He was started on clindamycin and Zithromax for his pneumonia and his UTI. He was given another Dulcolax suppository due to continued constipation. He was also started on duo nebs. His bowels did move and he was voiding without difficulty. He was only short of breath during coughing spasms. He did have some sputum production. He required some assistance with ambulation. A repeat chest x-ray on 05/16/2019 showed bilateral lower lobe pneumonia with bilateral effusions. He was continued on antibiotics. His family felt disposition was going to be an issue and wanted to consult hospice. Hospice saw the patient and accepted him. The patient improved throughout his stay but remained confused at times. He was stable to be discharged home on continued antibiotics. His sputum returned positive for MRSA. He was going to have a PICC line placed, but his was concerned about this as she had been cautioned against doing so with regard to his chemo treatments. The MRSA was sensitive to clindamycin, therefore he was stable to be discharged home on p.o. clindamycin with close follow-up. He did have a repeat chest x-ray before discharge which showed a resistive left lower lobe pneumonia with effusion, however the effusions did appear slightly smaller. He will follow-up in the office with Dr. Tavares and will be followed by hospice at his home. Objective Vital signs: Temp Pulse Resp BP Pulse Ox 98.4 F 95 H 17 138/91 H 92 L 05/18/19 12:00 05/18/19 12:05/18/19 12:00 05/18/19 12:05/18/19 12:00 Narrative: - Constitutional no acute distress Comments: At the time of this exam he is sitting upright in a wheelchair and is in no distress. He seems drowsy but does respond and will answer some questions though not always appropriately. - *Routine HEENT Exam Head: Present: normocephalic, cushingoid faces Eye: Present: PERRL ENT: Present: mucous membranes moist - *Routine Neck Exam Present: supple. Absent: tenderness - Routine Chest/Breast/Axilla Exam Chest wall: Absent: tenderness - *Routine Respiratory Exam Present: CTA bilaterally - *Routine Cardiovascular Exam Present: RRR - *Routine Abdominal Exam Present: soft, normoactive bowel sounds, distended (Slightly). Absent: tenderness - *Routine Extremities Exam Present: edema (2+ despite DINORAH stockings) - *Routine Skin Exam Present: ecchymosis (Some) - *Routine Neurological Exam No obvious focal deficits. Generalized weakness. Balance and coordination is not really tested. He does not carry on a normal conversation but can respond to some questions. Sometimes response is not appropriate. DS: Diagnosis - Discharge Diagnosis (1) Glioblastoma multiforme of central nervous system Status: Acute (2) Upper abdominal pain Status: Acute (3) Chronic steroid use Status: Acute (4) Cushingoid side effect of steroids Status: Acute (5) Reflux esophagitis Status: Acute (6) Bilateral lower extremity edema Status: Acute (7) Expressive aphasia Status: Acute (8) Gastritis Status: Acute (9) Urinary tract infection Status: Acute Problem details: due to staph haemolyticus (10) Pneumonia Status: Acute (11) Constipation Status: Acute Discharge Plan - Patient Discharge Instructions ACTIVITY: Limited activity DIET: advance to your usual diet Patient Instructions: DI for Urinary Tract Infection (UTI), DI for Abdominal Pain-Adult, DI for Esophagitis - Follow up Plan Follow up with: Jered Tavares MD [Primary Care Provider] - 05/21/19 2:00 pm Disposition: Hospice - Home Home Medications: Home Medications Medication Instructions Recorded Confirmed Type Allopurinol [Allopurinol 100mg 100 mg PO DAILY 05/02/18 05/12/19 History tablet] Aspirin [Aspirin 81mg EC Tab] 81 mg PO DAILY 05/02/18 05/12/19 History Ondansetron HCl [Ondansetron 8mg 8 mg PO DAILY 01/05/19 05/12/19 History Tablet] risperidone 0.5 mg tablet 0.5 mg PO BID tab 01/25/19 05/12/19 History dexamethasone 1 mg/mL drops 2 mg PO DAILY 02/08/19 05/12/19 History (concentrate) irinotecan 40 mg/2 mL intravenous 280 mg IV DIRECTED ml 04/19/19 05/12/19 History solution Bevacizumab [Avastin 100mg] 1,000 mg IV DIRECTED 04/23/19 05/13/19 History paroxetine 10 mg tablet 10 mg PO DAILY 05/03/19 05/12/19 History Cholecalciferol (Vitamin D3) 1,000 unit PO DAILY 05/12/19 05/12/19 History [Vitamin D3 1,000 Unit Cap] Famotidine 10 mg PO DAILY 05/12/19 05/12/19 History Furosemide [Furosemide 20mg Tab] 20 mg PO DAILY 05/12/19 05/12/19 History Sennosides/Docusate Sodium 1 each PO DAILY 05/12/19 05/12/19 History [Docusate Sodium-Senna Tablet] Tramadol HCl [Tramadol 50mg 50 mg PO BID 05/12/19 05/12/19 History Tab] Ubidecarenone/Vit E Acet [Co Q-10 1 each PO DAILY 05/12/19 05/12/19 History 100 mg Softgel] Benzonatate 200 mg PO TIDP PRN 05/13/19 05/13/19 History Clindamycin HCl [Clindamycin HCl 300 mg PO Q6 #30 cap 05/18/19 Rx 300mg Cap] Hydrocortisone [Cortef] 10 mg PO TID #90 tab 05/18/19 Rx Oxazepam [Serax 10mg Capsule] 10 mg PO TID #90 cap 05/18/19 Rx Prescriptions/Medication Reconciliation: New Oxazepam [Serax 10mg Capsule] 10 mg PO TID #90 cap Clindamycin HCl [Clindamycin HCl 300mg Cap] 300 mg PO Q6 #30 cap Hydrocortisone [Cortef] 10 mg PO TID #90 tab Continued risperidone 0.5 mg tablet 0.5 mg PO BID tab dexamethasone 1 mg/mL drops (concentrate) 2 mg PO DAILY irinotecan 40 mg/2 mL intravenous solution 280 mg IV DIRECTED ml paroxetine 10 mg tablet 10 mg PO DAILY Allopurinol [Allopurinol 100mg tablet] 100 mg PO DAILY Ondansetron HCl [Ondansetron 8mg Tablet] 8 mg PO DAILY Bevacizumab [Avastin 100mg] 1,000 mg IV DIRECTED Cholecalciferol (Vitamin D3) [Vitamin D3 1,000 Unit Cap] 1,000 unit PO DAILY Ubidecarenone/Vit E Acet [Co Q-10 100 mg Softgel] 1 each PO DAILY Sennosides/Docusate Sodium [Docusate Sodium-Senna Tablet] 1 each PO DAILY Benzonatate 200 mg PO TIDP PRN PRN Reason: Cough Aspirin [Aspirin 81mg EC Tab] 81 mg PO DAILY Tramadol HCl [Tramadol 50mg Tab] 50 mg PO BID Furosemide [Furosemide 20mg Tab] 20 mg PO DAILY Famotidine 10 mg PO DAILY Discontinued loratadine 10 mg tablet 10 mg PO DAILY Lovastatin 40 mg PO HS
== END 2019-05-18 14:19 | disposition hospice, home (50) | DRG 391 ==
LOC: 2ND 06:44 → ER 06:44 → OBSVTOIN 09:45 → 2ND 10:45
PROVIDERS: ADMIT Family Medicine; ATTEND Family Medicine
CPT/HCPCS: 36415; 71020; 71046; 74021; 74022; 80048; 80076; 81001; 83690; 84484; 85025; 85651; 86140; 87070; 87077; 87086; 87088; 87186; 87205; 94640; 94761; 96365; 96375; 96376; 99284; J0456; J2405

== ENCOUNTER 2019-06-11 18:38 | Observation (INO) ==
--- NOTE | 2019-06-11 18:53 | Emergency Department Note ---
ED Disposition Clinical Impression: Agitation Disposition: Admitted as Observation Condition on Discharge: Fair Referrals: Provider,MD Oswald [Referring] - Time of Disposition: 20:01 - Critical Care Critical Care Time: No Attestation: On 06/11/19, the high probability of a clinically significant, sudden or life threatening deterioration of the following system(s) required my full and direct attention, intervention and personal management. The time I documented below is in addition to time spent performing reported procedures but includes the following listed in this critical care notation. Medical Decision Making - Medical Records Medical records reviewed: Yes: I reviewed the patient's medical records. - Venkatesh Inquiry Pt receiving controlled substance: No Venkatesh was queried for this patient: No Vital Signs: 06/11/19 18:39 06/11/19 19:13 Temperature 97.8 F Temperature Source Oral Pulse Rate [Right Radial] 108 H 101 H Respiratory Rate 20 20 Blood Pressure [Right Arm] 159/109 H 147/97 H Blood Pressure Mean [Right Arm] 125 113 Blood Pressure Source [Right Arm] Automatic Cuff Blood Pressure Position [Right Arm] Sitting Sitting 02 Sat by Pulse Oximetry 95 95 Oxygen Delivery Method Room Air Room Air - Lab Data Lab results reviewed: Yes: I reviewed the patient's lab results. Lab Results 06/11/19 18:57: WBC 9.1, RBC 3.87 L, Hgb 11.9 L, Hct 38.3 L, MCV 98.8 H, MCH 30.6, MCHC 31.0 L, RDW 16.7, Plt Count 150, MPV 7.7, Neut % (Auto) 88.2 H, Lymph % (Auto) 8.7 L, [place] % (Auto) 2.8, Eos % (Auto) 0.3, Baso % (Auto) 0.1, Neut # (Auto) 8.0 H, Lymph # (Auto) 0.8, [place] # (Auto) 0.3, Eos # (Auto) 0.0, Baso # ( Auto) 0.0, Total Counted 100, Neutrophils % (Manual) 90 H, Band Neutrophils % 2.0, Lymphocytes % (Manual) 5 L, Monocytes % (Manual) 1 L, Eosinophils % (Manual) 1, Myelocytes % 1, Platelet Estimate Normal, Hypochromasia 1+ 06/11/19 18:57: Sodium 142, Potassium 4.9, Chloride 106, Carbon Dioxide 30, An ion Gap 10.9, BUN 19 H, Creatinine 1.10, Estimated Creat Clear 104, Estimated GFR 67, Est GFR ( Amer) 82, Glucose 202 H, Calcium 9.0, Total Bilirubin 0.2, AST 10 L, ALT 31, Alkaline Phosphatase 84, Total Protein 6.7, Albumin 2.7 L , Globulin 4.0 H, Albumin/Globulin Ratio 0.7 L Result diagrams: 06/11/19 18:57 06/11/19 18:57 Orders (Tests/Meds): ED MEDICATIONS Generic Name Dose Route Start Last Admin Trade Name Freq PRN Reason Stop Dose Admin Sodium Chloride 1,000 mls @ 250 mls/hr 06/11/19 19:00 Sod Chlor 0.9% 1000ml Bag IV 07/11/19 18:59 .Q4H EDUARDO ORDERS Category Date Time Status CT head/brain wo con Stat Cat Scan 06/11/19 18:51 Taken XR chest portable Stat Exams 06/11/19 18:50 Taken UA [Urinalysis and Microscopic] Stat Lab 06/11/19 18:52 Ordered General Adult HPI - General Stated complaint: confusion Time Seen by Provider: 06/11/19 18:53 Source of Information: Relative - History of Present Illness HPI narrative: patient has stage 4 brain CA, has been combative at home and striking out at family, refusing to take meds. He is hospice. Family had him brought into hopefully expedate placing in a nursing facilty. Has been cooperative with staff here - Related Data Home Medications Medication Instructions Recorded Confirmed Allopurinol [Allopurinol 100mg 100 mg PO DAILY 05/02/18 06/11/19 tablet] Aspirin [Aspirin 81mg EC Tab] 81 mg PO DAILY 05/02/18 06/11/19 Ondansetron HCl [Ondansetron 8mg 8 mg PO DAILY 01/05/19 05/12/19 Tablet] risperidone 0.5 mg tablet 0.5 mg PO BID tab 01/25/19 06/11/19 dexamethasone 1 mg/mL drops 2 mg PO DAILY 02/08/19 06/11/19 (concentrate) Cholecalciferol (Vitamin D3) 1,000 unit PO DAILY 05/12/19 06/11/19 [Vitamin D3 1,000 Unit Cap] Furosemide [Furosemide 20mg Tab] 20 mg PO NEEDED PRN 05/12/19 06/11/19 Sennosides/Docusate Sodium 1 each PO DAILY 05/12/19 06/11/19 [Docusate Sodium-Senna Tablet] Ubidecarenone/Vit E Acet [Co Q-10 1 each PO DAILY 05/12/19 05/12/19 100 mg Softgel] Benzonatate 200 mg PO TIDP PRN 05/13/19 06/11/19 Morphine Sulfate [Roxanol 20mg/mL 5 mg PO Q6H 06/11/19 06/11/19 1mL oral solution UDC] Oxazepam [Serax 10mg Capsule] 10 mg PO TID 06/11/19 06/11/19 PHENobarbital [PHENobarbital 32.4 mg PO DAILY 06/11/19 06/11/19 32.4mg Tablet] Previous Rx's Medication Instructions Recorded Hydrocortisone [Cortef] 10 mg PO TID #90 tab 05/18/19 Allergies Allergy/AdvReac Type Severity Reaction Status Date / Time Sulfa (Sulfonamide Allergy Unknown Verified 05/03/19 11:55 Antibiotics) [SULFA (SULFONAMIDE ANTIBIOTICS)] dexamethasone Allergy Verified 05/03/19 11:55 vancomycin Allergy Verified 05/03/19 11:55 [facility] History - Hepatitis A Screen Attestation statement:: This patient has been screened for Hepatitis A risk factors. I have reviewed the patient's past medical history: Yes Medical History: Reports:: Cancer, Hyperlipidemia, Hypertension, Lung Disease, Kidney Stones Denies:: Diabetes Mellitus Type 1, Diabetes Mellitus Type 2, Internal Pacemaker, MRSA Other Medical History: Reports: Arthritis, Cataracts, Chemotherapy, Radiation Therapy Laterality Cases: Bilateral: Other Other Surgeries: Yes: Cancer Surgery (Removal of glioblastoma tumor). No: Pacemaker Amputation: No Fractures: Yes (left arm plate) Comment: Renal stones in 1988. Left lower arm injury December 2008 with ORIF. Right knee arthroscopy November 2012. L5-S1 hemilaminectomy/discectomy June 19, 2013. Chainsaw injury to left arm with nerve injury March 2016. - Social History Smoking Status: Former smoker Tobacco Type: cigarettes Alcohol Intake: never Alcohol Intake Frequency:: other Substance Use Type: denies use Occupational Status: retired Housing: house Household Members: spouse Family Hx:: Unable to obtain ROS Obtained: Yes All systems reviewed & no additional complaints, Yes unobtainable due to mental condition - Constitutional Constitutional: Denies fever(s) - Cardiovascular Cardiovascular: Reports chest pain - Respiratory Respiratory: No chest congestion, No cough - Gastrointestinal Gastrointestingal: Denies: abdominal pain, vomiting blood, vomiting - Genitourinary Male Genitourinary: Denies flank pain, Denies hematuria - Musculoskeletal Musculoskeletal: Reports muscle aches - Integumentary/Breasts Skin/Breast: Denies rash, Denies skin pain - Neurologic Neurologic: Reports behavioral changes, Reports headache(s), Reports lack of c oordination - Hematologic/Lymphatic Henatologic/Lymphatic: Denies easy bleeding, Denies easy bruising - Allergic/Immunologic Allergic/Immunologic: Denies wheezing Physical Exam - General General appearance: alert, in no apparent distress - Head Head exam: atraumatic, normocephalic, normal inspection - Eye Eye exam: Present: normal appearance, PERRL, EOMI - ENT ENT exam: Present: normal exam, normal oropharynx, mucous membranes moist, TM's normal bilaterally, normal external ear exam - Chest Chest inspection: Present: normal inspection, symmetric chest wall rise. Absent: tenderness - Respiratory Respiratory exam: Present: normal lung sounds bilaterally. Absent: respiratory distress - Cardiovascular Cardiovascular exam: Present: regular rate, normal rhythm. Absent: JVD - Extremities Exam Extremities exam: Present: normal inspection, full ROM, normal capillary refill. Absent: calf tenderness - Back Exam Back exam: Present: normal inspection. Absent: tenderness - Neurological Exam Neurological exam: Present: alert, CN II-XII intact. Absent: oriented X3, normal gait - Psychiatric Psychiatric exam: Absent: flat affect - Skin Skin exam: Present: warm, dry, intact
[2019-06-11 19:09] LABS: Basophils % 0.1 % (0.1-2.0); Eosinophils % 0.3 % (0.1-12.0); Hematocrit 38.3 % (42.0-52.0); Hemoglobin 11.9 g/dL (14.1-18.0); Lymphocytes # 0.8 K/mm3 (0.7-4.5); Lymphocytes % 8.7 % (10-50); Mean Corpuscular Volume 98.8 fl (80-94); Mean Platelet Volume 7.7 fl (7.4-10.4); Monocytes # 0.3 K/mm3 (0.1-1.0); Monocytes % 2.8 % (1.7-9.3); Neutrophils % 88.2 % (37.0-80.0); Platelet Count 150 K/mm3 (142-424); Red Blood Count 3.87 M/mm3 (4.60-6.20); Red Cell Distribution Width 16.7 % (11.5-17.5); White Blood Count 9.1 K/mm3 (4.8-10.8)
[2019-06-11 19:21] LABS: Albumin Level 2.7 gm/dL (3.4-5.0); Albumin/Globulin Ratio 0.7 (1.1-1.8); Anion Gap 10.9 mEq/L (5-15); Bilirubin,Total 0.2 mg/dL (0.2-1.0); Total Protein,Serum 6.7 gm/dL (6.4-8.2)
[2019-06-11 19:29] LABS: Eosinophils % 1 % (0-3); Lymphocytes % 5 % (10-50); Monocytes % 1 % (2-9); Myelocytes % 1 (0-1); Neutrophils % 90 % (42-76); Total Cells Counted 100
[2019-06-11 19:30] LABS: Hypochromasia 1+
[2019-06-12 01:51] LABS: Microscopic, Urine URINE MICROSCOPIC (MICROSCOPIC)
[2019-06-12 01:52] LABS: Appearance,Urine CLEAR (Clear); Bilirubin,Urine Negative (Negative); Blood, Urine Negative (Negative); Color,Urine YELLOW (Yellow); Glucose,Urine (UA) Negative (Negative); Ketones,Urine Negative (Negative); Leukocyte Esterase,Urine Negative (Negative); PH,Urine 6.5 (5.0-8.5); Protein,Urine Negative (Negative); Urobilinogen,Urine 0.2 EU/dl (0.2)
[2019-06-12 02:16] LABS: Bacteria,Urine Trace /lpf; WBC,Urine Occasional #/hpf (0-3)
--- NOTE | 2019-06-12 08:20 | Pharmacy Consult Notes ---
[facility] Pharmacy VTE Monitoring - Patient Demographics Admission date: 06/12/19 Report Date: 06/12/19 Time: 08:20 Allergies/Adverse Reactions: Patient Allergies Sulfa (Sulfonamide Antibiotics) [SULFA (SULFONAMIDE ANTIBIOTICS)] Allergy (Unknown, Verified 06/11/19 22:15) dexamethasone Allergy (Verified 06/11/19 22:15) vancomycin Allergy (Verified 06/11/19 22:15) Height: 1.78 m Weight: 95.339 kg Patient Problems: Current Active Problems (Updated 06/11/19 @ 20:01 by Reinier Wilkinson MD) Agitation (Acute) - VTE Risk Labs: VTE Related Lab Results Hgb 11.9 g/dL (14.1-18.0) L 06/11/19 18:57 Hct 38.3 % (42.0-52.0) L 06/11/19 18:57 Plt Count 150 K/mm3 (142-424) 06/11/19 18:57 BUN 19 mg/dL (7-18) H 06/11/19 18:57 Creatinine 1.10 mg/dL (0.70-1.30) 06/11/19 18:57 Estimated Creat Clear 104 mL/min (50-200) 06/11/19 18:57 Was VTE Risk Assessment Performed: Yes VTE Risk Level: Moderate Risk Clinical Trial Participant: No - Prophylaxis VTE Prophylaxis Ordered?: Yes Types of VTE Prophylaxis: TEDS Knee High
--- NOTE | 2019-06-12 08:39 | History & Physical Report ---
*Admission Date: 06/12/19 <Enedelia Jefferson 06/12/19 08:39> *Chief complaint: Agitation <RonnyEnedelia 06/12/19 08:39> *History of present illness: Mr Saini is a 63-year-old male who was diagnosed with glioblastoma multiforme in April 2018 with lesion in the temporal and parietal lobe. He has been treated with chemotherapy at the [facility] in [facility]. He has a history of kidney stones, lumbar disc herniation and cholelithiasis. He was admitted to the hospital 05/12/2019 with pneumonia and urinary tract infection. He was discharged home with this admission with hospice. Patient's reports increasing agitation and restlessness. He has been on se veral meds as prescribed by hospice. Family has been unable to get him to take medicines at times. The last 3 to 4 days restlessness and agitation has increased despite medicines. He has been able to rest at intervals. He does not complain of pain. He continues to eat and drink. He does void. Bowels have not moved in the last 4 days. He has had no vomiting. Continues to recognize his family. Family brought him to the emergency room feeling that they may be able to get him into the halfway for additional care. They do not feel that they can manage him at home at this time. At the time of this exam patient patient continues to be agitated and restless with constant motion. He has received Ativan, morphine, and Haldol during the night. <Jefferson,Enedelia 06/12/19 09:08> [facility] History Medical History: Reports:: Cancer (glioblastoma), Hyperlipidemia, Hypertension, Lung Disease, Kidney Stones Denies:: Diabetes Mellitus Type 1, Diabetes Mellitus Type 2, Internal Pacemaker, MRSA <RonnyEnedelia 06/12/19 08:39> *Have you ever received a pneumonia vaccine?: No <Enedelia Jefferson 06/12/19 08:39> *Have you received a flu vaccine this season?: No <Enedelia Jefferson 06/12/19 08:39> Other Medical History: Reports: Arthritis, Cataracts, Chemotherapy, Radiation Therapy <Enedelia Jefferson 06/12/19 08:39> Laterality Cases: Bilateral: Other <Enedelia Jefferson 06/12/19 08:39> Other Surgeries: Yes: Cancer Surgery (Removal of glioblastoma tumor). No: Pacemaker <RonnyEnedelia 06/12/19 09:08> Amputation: No <RonnyEnedelia 06/12/19 08:39> Fractures: Yes <RonnyEnedelia 06/12/19 08:39> Comment: Kidney stones; leg pain in left lower arm to 2008; scope of the right knee November 2012; L5-S1 humeral laminectomy/discectomy; nerve repair on left arm due to chainsaw accident 04/02/2016 <RonnyEnedelia 06/12/19 09:08> - *Social History Smoking Status: Former smoker <RonnyEnedelia 06/12/19 08:39> Tobacco Type: cigarettes <RonnyEnedelia 06/12/19 08:39> Alcohol Intake: never <RonnyEnedelia 06/12/19 08:39> Alcohol Intake Frequency:: other <Enedelia Jefferson 06/12/19 08:39> Substance Use Type: denies use <RonnyEnedelia 06/12/19 08:39> *Occupational Status:: retired <RonnyEnedelia 06/12/19 08:39> Housing: house <Jefferson,Enedelia 06/12/19 08:39> Household Members: spouse <Jefferson,Enedelia 06/12/19 08:39> *Travel in the last 8 weeks: None <RonnyEnedelia 06/12/19 08:39> Family Hx:: Hypertension <Enedelia Jefferson 06/12/19 08:39> Review of Systems - Constitutional Comments: Confusion <Enedelia Jefferson 06/12/19 09:08> - ENT Denies difficulty swallowing <Enedelia Jefferson 06/12/19 09:08> - *Cardiovascular Denies chest pain, Denies shortness of breath <Enedelia Jefferson 06/12/19 09:08> - *Gastrointestinal Denies abdominal pain, Denies bloating, Denies nausea, Denies vomiting <Enedelia Jefferson 06/12/19 09:08> Comments: Constipation <Enedelia Jefferson 06/12/19 09:08> - *Genitourinary Denies difficulty urinating <Enedelia Jefferson - 06/12/19 09:08> - *Musculoskeletal Reports abnormal walking <Enedelia Jefferson - 06/12/19 09:08> Comments: Unsteady on his feet <Enedelia Jefferson - 06/12/19 09:08> - *Neurologic Reports abnormal speech, Reports behavioral changes, Reports confusion, Reports headache(s), Reports lack of coordination, Reports weakness <Enedelia Jefferson - 06/12/19 09:08> - Psychiatric Reports behavioral changes, Reports confusion <Enedelia Jefferson - 06/12/19 09:08> Meds Home Medications Medication Instructions Recorded Confirmed Type Allopurinol [Allopurinol 100mg 100 mg PO DAILY 05/02/18 06/11/19 History tablet] Aspirin [Aspirin 81mg EC Tab] 81 mg PO DAILY 05/02/18 06/11/19 History risperidone 0.5 mg tablet 0.5 mg PO 0900,1700 tab 01/25/19 06/12/19 History dexamethasone 1 mg/mL drops 2 mg PO DAILY 02/08/19 06/12/19 History (concentrate) Cholecalciferol (Vitamin D3) 1,000 unit PO DAILY 05/12/19 06/12/19 History [Vitamin D3 1,000 Unit Cap] Furosemide [Furosemide 20mg Tab] 20 mg PO NEEDED PRN 05/12/19 06/12/19 History Benzonatate 200 mg PO TIDP PRN 05/13/19 06/11/19 History Morphine Sulfate [Roxanol 20mg/mL 5 mg PO Q6H 06/11/19 06/12/19 History 1mL oral solution UDC] Oxazepam [Serax 10mg Capsule] 10 mg PO 0900,1200 06/11/19 06/12/19 History PHENobarbital [PHENobarbital 32.4 mg PO DAILY 06/11/19 06/12/19 History 32.4mg Tablet] Cortisone Acetate 10 mg PO TID 06/12/19 06/12/19 History Docusate Sodium 100 mg PO BID 06/12/19 06/12/19 History Ipratropium/Albuterol Sulfate 3 ml IH Q6HP PRN 06/12/19 06/12/19 History [Duoneb 3mL neb] Morphine Sulfate [Roxanol 20mg/mL 5 mg PO Q3HP PRN 06/12/19 06/12/19 History 1mL oral solution UDC] Ondansetron HCl [Ondansetron 8mg 8 mg PO Q8HP PRN 06/12/19 06/12/19 History Tablet] Oxazepam 30 mg PO HS 06/12/19 06/12/19 History PHENobarbital [PHENobarbital 32.4 mg PO Q2HP PRN 06/12/19 06/12/19 History 32.4mg Tablet] PHENobarbital [PHENobarbital 64.8 mg PO HS 06/12/19 06/12/19 History 32.4mg Tablet] raNITIdine HCl [Zantac 150mg] 150 mg PO DAILY 06/12/19 06/12/19 History risperiDONE [Risperdal 0.5mg 1 mg PO HS 06/12/19 06/12/19 History tablet] <Jered Tavares - 06/12/19 10:36> Allergies Allergy/AdvReac Type Severity Reaction Status Date / Time Sulfa (Sulfonamide Allergy Unknown Verified 06/11/19 22:15 Antibiotics) [SULFA (SULFONAMIDE ANTIBIOTICS)] dexamethasone Allergy Verified 06/11/19 22:15 vancomycin Allergy Verified 06/11/19 22:15 <Jered Tavares - 06/12/19 10:36> Exam Vital signs and Labs for Last 24 Hours: Temp Pulse Resp BP Pulse Ox 99 F 123 H 20 176/115 H 95 06/12/19 03:25 06/12/19 03:25 06/12/19 03:25 06/12/19 03:25 06/12/19 03:25 Laboratory Results - last 24 hr 06/11/19 18:57: WBC 9.1, RBC 3.87 L, Hgb 11.9 L, Hct 38.3 L, MCV 98.8 H, MCH 30.6, MCHC 31.0 L, RDW 16.7, Plt Count 150, MPV 7.7, Neut % (Auto) 88.2 H, Lymph % (Auto) 8.7 L, [place] % (Auto) 2.8, Eos % (Auto) 0.3, Baso % (Auto) 0.1, Neut # (Auto) 8.0 H, Lymph # (Auto) 0.8, [place] # (Auto) 0.3, Eos # (Auto) 0.0, Baso # (Auto) 0.0, Total Counted 100, Neutrophils % (Manual) 90 H, Band Neutrophils % 2.0, Lymphocytes % (Manual) 5 L, Monocytes % (Manual) 1 L, Eosinophils % (Manual) 1, Myelocytes % 1, Platelet Estimate Normal, Hypochromasia 1+ 06/11/19 18:57: Sodium 142, Potassium 4.9, Chloride 106, Carbon Dioxide 30, Anion Gap 10.9, BUN 19 H, Creatinine 1.10, Estimated Creat Clear 104, Estimated GFR 67, Est GFR ( Amer) 82, Glucose 202 H, Calcium 9.0, Total Bilirubin 0.2, AST 10 L, ALT 31, Alkaline Phosphatase 84, Total Protein 6.7, Albumin 2.7 L , Globulin 4.0 H, Albumin/Globulin Ratio 0.7 L 06/12/19 01:40: Urine Color Yellow, Urine Appearance Clear, Urine pH 6.5, Ur Specific [place] 1.010, Urine Protein Negative, Urine Glucose (UA) Negative, Urine Ketones Negative, Urine Blood Negative, Urine Nitrate Negative, Urine Bilirubin Negative, Urine Urobilinogen 0.2, Ur Leukocyte Esterase Negative, Urine RBC 3-5, Urine WBC Occasional, Urine Bacteria Trace <Weston,Jered - 06/12/19 10:36> Temp Pulse Resp BP Pulse Ox 99 F 123 H 20 176/115 H 95 06/12/19 03:25 06/12/19 03:25 06/12/19 03:25 06/12/19 03:25 06/12/19 03:25 Laboratory Results - last 24 hr 06/11/19 18:57: WBC 9.1, RBC 3.87 L, Hgb 11.9 L, Hct 38.3 L, MCV 98.8 H, MCH 30.6, MCHC 31.0 L, RDW 16.7, Plt Count 150, MPV 7.7, Neut % (Auto) 88.2 H, Lymph % (Auto) 8.7 L, [place] % (Auto) 2.8, Eos % (Auto) 0.3, Baso % (Auto) 0.1, Neut # (Auto) 8.0 H, Lymph # (Auto) 0.8, [place] # (Auto) 0.3, Eos # (Auto) 0.0, Baso # (Auto) 0.0, Total Counted 100, Neutrophils % (Manual) 90 H, Band Neutrophils % 2.0, Lymphocytes % (Manual) 5 L, Monocytes % (Manual) 1 L, Eosinophils % (Manual) 1, Myelocytes % 1, Platelet Estimate Normal, Hypochromasia 1+ 06/11/19 18:57: Sodium 142, Potassium 4.9, Chloride 106, Carbon Dioxide 30, Anion Gap 10.9, BUN 19 H, Creatinine 1.10, Estimated Creat Clear 104, Estimated GFR 67, Est GFR ( Amer) 82, Glucose 202 H, Calcium 9.0, Total Bilirubin 0.2, AST 10 L, ALT 31, Alkaline Phosphatase 84, Total Protein 6.7, Albumin 2.7 L , Globulin 4.0 H, Albumin/Globulin Ratio 0.7 L 06/12/19 01:40: Urine Color Yellow, Urine Appearance Clear, Urine pH 6.5, Ur Specific [place] 1.010, Urine Protein Negative, Urine Glucose (UA) Negative, Urine Ketones Negative, Urine Blood Negative, Urine Nitrate Negative, Urine Bilirubin Negative, Urine Urobilinogen 0.2, Ur Leukocyte Esterase Negative, Urine RBC 3-5, Urine WBC Occasional, Urine Bacteria Trace <Enedelia Jefferson - 06/12/19 08:39> I & O for Last 24 hours: Intake & Output 06/09/19 06/10/19 06/11/19 06/12/19 23:59 23:59 23:59 23:59 Intake Total 1713 / 1713 Output Total 250 / 250 Balance 1463 / 1463 Weight 210 lb 3 oz <Weston,Jered - 06/12/19 10:36> Intake & Output 06/09/19 06/10/19 06/11/19 06/12/19 11:59 11:59 11:59 11:59 Intake Total 1713 / 1713 Output Total 250 / 250 Balance 1463 / 1463 Weight 210 lb 3 oz <Enedelia Jefferson - 06/12/19 08:39> Radiology Reports for the Last 24 Hours: 06/11/2019 chest x-ray IMPRESSION: Limited study with cardiomegaly and poor inspiration with underpenetration. Suspect bibasilar airspace disease with small left effusion. CT of the head 06/11/2019 IMPRESSION: 1. Diffuse encephalomalacic changes of the left temporoparietal region with some vague low-density changes in the left temporal lobe suggesting residual mass. Recommend post enhanced exam or preferably MRI without and with contrast for further evaluation. 5 mm midline shift toward the right. 2. No acute intracranial hemorrhage or hydrocephalus <[facility] 06/12/19 09:08> - Constitutional agitated <Jefferson,Enedelia - 06/12/19 09:08> Comments: Constant motion and wanting to get up all the time. <Jefferson,[facility] 06/12/19 09:08> - *Routine HEENT Exam Head: Present: normocephalic <Jefferson,[facility] 06/12/19 09:08> Eye: Absent: conjunctival icterus, scleral injection <[facility] 06/12/19 09:08> ENT: Present: mucous membranes moist <[facility] 06/12/19 09:08> - *Routine Respiratory Exam Present: CTA bilaterally (Anteriorly and posteriorly) <[facility] 06/12/19 09:08> - *Routine Cardiovascular Exam Present: RRR <Jefferson,[facility] 06/12/19 09:08> - *Routine Abdominal Exam Present: soft, normoactive bowel sounds. Absent: tenderness, distended <Jefferson,[facility] 06/12/19 09:08> - *Routine Extremities Exam Absent: edema, calf tenderness <Jefferson,[facility] 06/12/19 09:08> - *Routine Skin Exam Comments: Head is flushed <Jefferson,[facility] 06/12/19 09:08> - *Routine Neurological Exam Present: altered mental status, moving all extremities. Absent: normal speech <Jefferson,[facility] 06/12/19 09:08> Assessment and Plan (1) Agitation Current visit: Yes Status: Acute Category: Medical Code(s): R45.1 - Rest lessness and agitation (2) Hospice care patient Current visit: Yes Status: Acute Category: Medical Code(s): Z51.5 - Encounter for palliative care (3) Constipation Current visit: No Status: Acute Category: Medical Code(s): K59.00 - Constipation, unspecified (4) Glioblastoma multiforme of central nervous system Current visit: No Status: Acute Category: Medical Code(s): C72.9 - Malignant neoplasm of central nervous system, unspecified <Jered Tavares - 06/12/19 10:36> (1) Agitation Current visit: Yes Status: Acute Category: Medical Code(s): R45.1 - Restlessness and agitation (2) Hospice care patient Current visit: Yes Status: Acute Category: Medical Code(s): Z51.5 - Encounter for palliative care (3) Agitation Current visit: Yes Status: Acute Category: Medical Code(s): R45.1 - Restlessness and agitation (4) Constipation Current visit: No Status: Acute Category: Medical Code(s): K59.00 - Constipation, unspecified (5) Glioblastoma multiforme of central nervous system Current visit: No Status: Acute Category: Medical Code(s): C72.9 - Malignant neoplasm of central nervous system, unspecified <Enedelia Jefferson - 06/12/19 08:54> - Assessment and plan all Dx Assessment and Plan for all problems:: Saw patient, agree with above note. <Jered Tavares - 06/12/19 10:36> Patient was admitted for further evaluation and treatment and for medication adjustment. <Enedelia Jefferson - 06/12/19 09:08>
--- NOTE | 2019-06-12 21:26 | Discharge Summary ---
General - General Admission date:: 06/11/19 Discharge date: 06/12/19 HPI HPI: Mr Saini is a 63-year-old male who was diagnosed with glioblastoma multiforme in April 2018 with lesion in the temporal and parietal lobe. He has been treated with chemotherapy at the [facility] in [facility]. He has a history of kidney stones, lumbar disc herniation and cholelithiasis. He was admitted to the hospital 05/12/2019 with pneumonia and urinary tract infection. He was discharged home with this admission with hospice. Patient's reports increasing agitation and restlessness. He has been on several meds as prescribed by hospice. Family has been unable to get him to take medicines at times. The last 3 to 4 days restlessness and agitation has increased despite medicines. He has been able to rest at intervals. He does not complain of pain. He continues to eat and drink. He does void. Bowels have not moved in the last 4 days. He has had no vomiting. Continues to recognize his family. Family brought him to the emergency room feeling that they may be able [facility]. They do not feel that they can manage him at home at this time. At the time of this exam patient patient continues to be agitated and restless with constant motion. He has received Ativan, morphine, and Haldol during the night. Hospital Course Hospital Course: The patient's chest x-ray showed bibasilar airspace disease with a small left effusion. His head CT showed diffuse encephalomalacic changes of the left temporoparietal region with some vague low-density changes in the left temporal lobe suggesting residual mass. There was a 5 mm midline shift toward the right. The patient was admitted and was still restless and agitated after receiving Ativan, morphine, and Haldol throughout the night. Care management discussed further care with the patient's family as they did not feel they could take care of him at home due to him being combative. A bed was found for him at the [facility] in [place] and his family was in agreement that he be transferred. The patient did have to receive another dose of morphine in hopes to calm him for transport. He was transported to the [facility] in [place]. Objective Vital signs: Temp Pulse Resp BP Pulse Ox 99 F 123 H 20 176/115 H 95 06/12/19 03:25 06/12/19 03:25 06/12/19 03:25 06/12/19 03:25 06/12/19 03:25 Narrative: - Constitutional agitated Comments: Constant motion and wanting to get up all the time. - *Routine HEENT Exam Head: Present: normocephalic Eye: Absent: conjunctival icterus, scleral injection ENT: Present: mucous membranes moist - *Routine Respiratory Exam Present: CTA bilaterally (Anteriorly and posteriorly) - *Routine Cardiovascular Exam Present: RRR - *Routine Abdominal Exam Present: soft, normoactive bowel sounds. Absent: tenderness, distended - *Routine Extremities Exam Absent: edema, calf tenderness - *Routine Skin Exam Comments: Head is flushed - *Routine Neurological Exam Present: altered mental status, moving all extremities. Absent: normal speech Results Labs on day of discharge: Labs from last 24 hours 06/12/19 01:40 Urine Color Yellow Urine Appearance Clear Urine pH 6.5 Ur Specific [place] 1.010 Urine Protein Negative Urine Glucose (UA) Negative Urine Ketones Negative Urine Blood Negative Urine Nitrate Negative Urine Bilirubin Negative Urine Urobilinogen 0.2 Ur Leukocyte Esterase Negative Urine RBC 3-5 Urine WBC Occasional Urine Bacteria Trace DS: Diagnosis - Discharge Diagnosis (1) Agitation Status: Acute (2) Hospice care patient Status: Acute (3) Constipation Status: Acute (4) Glioblastoma multiforme of central nervous system Status: Acute Discharge Plan - Patient Discharge Instructions ACTIVITY: Continue current activity DIET: continue same diet Patient Instructions: DI for Altered Mental Status Forms: Transfer Record - Follow up Plan Follow up with: Jered Tavares MD [Primary Care Provider] - Disposition: Hospice - Medical Facility Home Medications: Home Medications Medication Instructions Recorded Confirmed Type Allopurinol [Allopurinol 100mg 100 mg PO DAILY 05/02/18 06/11/19 History tablet] Aspirin [Aspirin 81mg EC Tab] 81 mg PO DAILY 05/02/18 06/11/19 History risperidone 0.5 mg tablet 0.5 mg PO 0900,1700 tab 01/25/19 06/12/19 History dexamethasone 1 mg/mL drops 2 mg PO DAILY 02/08/19 06/12/19 History (concentrate) Cholecalciferol (Vitamin D3) 1,000 unit PO DAILY 05/12/19 06/12/19 History [Vitamin D3 1,000 Unit Cap] Furosemide [Furosemide 20mg Tab] 20 mg PO NEEDED PRN 05/12/19 06/12/19 History Benzonatate 200 mg PO TIDP PRN 05/13/19 06/11/19 History Morphine Sulfate [Roxanol 20mg/mL 5 mg PO Q6H 06/11/19 06/12/19 History 1mL oral solution UDC] Oxazepam [Serax 10mg Capsule] 10 mg PO 0900,1200 06/11/19 06/12/19 History PHENobarbital [PHENobarbital 32.4 mg PO DAILY 06/11/19 06/12/19 History 32.4mg Tablet] Docusate Sodium 100 mg PO BID 06/12/19 06/12/19 History Hydrocortisone [Cortef] 10 mg PO TID 06/12/19 06/12/19 History Ipratropium/Albuterol Sulfate 3 ml IH Q6HP PRN 06/12/19 06/12/19 History [Duoneb 3mL neb] Morphine Sulfate [Roxanol 20mg/mL 5 mg PO Q3HP PRN 06/12/19 06/12/19 History 1mL oral solution UDC] Ondansetron HCl [Ondansetron 8mg 8 mg PO Q8HP PRN 06/12/19 06/12/19 History Tablet] Oxazepam 30 mg PO HS 06/12/19 06/12/19 History PHENobarbital [PHENobarbital 32.4 mg PO Q2HP PRN 06/12/19 06/12/19 History 32.4mg Tablet] PHENobarbital [PHENobarbital 64.8 mg PO HS 06/12/19 06/12/19 History 32.4mg Tablet] raNITIdine HCl [Zantac 150mg] 150 mg PO DAILY 06/12/19 06/12/19 History risperiDONE [Risperdal 0.5mg 1 mg PO HS 06/12/19 06/12/19 History tablet] Prescriptions/Medication Reconciliation: Continued risperidone 0.5 mg tablet 0.5 mg PO 0900,1700 tab dexamethasone 1 mg/mL drops (concentrate) 2 mg PO DAILY Allopurinol [Allopurinol 100mg tablet] 100 mg PO DAILY Cholecalciferol (Vitamin D3) [Vitamin D3 1,000 Unit Cap] 1,000 unit PO DAILY Benzonatate 200 mg PO TIDP PRN PRN Reason: Cough PHENobarbital [PHENobarbital 32.4mg Tablet] 32.4 mg PO DAILY Morphine Sulfate [Roxanol 20mg/mL 1mL oral solution UDC] 5 mg PO Q6H Oxazepam [Serax 10mg Capsule] 10 mg PO 0900,1200 Ondansetron HCl [Ondansetron 8mg Tablet] 8 mg PO Q8HP PRN PRN Reason: Nausea Ipratropium/Albuterol Sulfate [Duoneb 3mL neb] 3 ml IH Q6HP PRN PRN Reason: SHORTNESS OF AIR raNITIdine HCl [Zantac 150mg] 150 mg PO DAILY Morphine Sulfate [Roxanol 20mg/mL 1mL oral solution UDC] 5 mg PO Q3HP PRN PRN Reason: PAIN/SHORTNESS OF AIR Oxazepam 30 mg PO HS PHENobarbital [PHENobarbital 32.4mg Tablet] 64.8 mg PO HS risperiDONE [Risperdal 0.5mg tablet] 1 mg PO HS PHENobarbital [PHENobarbital 32.4mg Tablet] 32.4 mg PO Q2HP PRN PRN Reason: Seizures Aspirin [Aspirin 81mg EC Tab] 81 mg PO DAILY Furosemide [Furosemide 20mg Tab] 20 mg PO NEEDED PRN PRN Reason: fluid/swelling Docusate Sodium 100 mg PO BID Hydrocortisone [Cortef] 10 mg PO TID
== END 2019-06-12 14:24 | disposition hospice, inpatient (51) ==
LOC: 2ND 18:38 → ER 18:38 → 2ND 20:38
PROVIDERS: ADMIT Family Medicine; ATTEND Family Medicine
DX: Z79.899 Other long term (current) drug therapy; R45.1 Restlessness and agitation; C71.9 Malignant neoplasm of brain, unspecified; Z88.1 Allergy status to other antibiotic agents; E78.5 Hyperlipidemia, unspecified; K59.00 Constipation, unspecified; I10 Essential (primary) hypertension; Z88.8 Allergy status to other drugs, medicaments and biological substances; Z88.2 Allergy status to sulfonamides
CPT/HCPCS: 70450; 71010; 71045; 80053; 81001; 85007; 85025; 96374; 99284; G0378